=== PATIENT | female | born 1960 ===

== ENCOUNTER → 2021-02-15 10:20 | Outpatient (BNVA) | payer OTHER, SELFPAY | PROVIDERS: PCP Internal Medicine; Visit Provider Nurse Practitioner Family | DX: G43.709 Chronic migraine without aura, not intractable, without status migrainosus (principal); G56.40 Causalgia of unspecified upper limb; R25.1 Tremor, unspecified | CPT/HCPCS: 99212 ==

== ENCOUNTER 2021-04-21 14:13 | Outpatient (REF) | payer OTHER, SELFPAY ==
[2021-04-21 16:10] LABS: Estimated Glomerular Filt Rate > 60
[2021-04-21 16:17] LABS: B Type Natriuretic Peptide 37 pg/mL (<100)
[2021-04-21 16:32] LABS: TSH reflex Free T4 0.52 uIU/mL (0.32-4.0)
[2021-04-21 16:46] LABS: Folate 8.2 ng/mL (> or = 4.0); Vitamin B12 333 pg/mL (200-900)
[2021-04-22 19:31] LABS: Transglutaminase Ab IgG <1.0 U/mL; Transglutaminase IgA <1.0 U/mL
[2021-04-26 20:47] LABS: Vitamin D 25-OH, D2 <4 ng/mL; Vitamin D 25-OH, D3 30 ng/mL; Vitamin D 25-OH, Total 30 ng/mL (30-100)
== END 2021-04-21 14:14 | disposition home or self-care (01) ==
LOC: HO.LAB 14:13
PROVIDERS: PCP Internal Medicine; Visit Provider Nurse Practitioner Family
DX: R10.11 Right upper quadrant pain (principal); R19.7 Diarrhea, unspecified; R14.0 Abdominal distension (gaseous); E55.9 Vitamin D deficiency, unspecified; R10.9 Unspecified abdominal pain; K59.03 Drug induced constipation; K58.1 Irritable bowel syndrome with constipation
CPT/HCPCS: 36415; 82306; 82565; 82607; 82746; 83880; 84443; 86364; 99202

== ENCOUNTER → 2021-04-26 10:42 | Outpatient (BNVA) | payer OTHER, SELFPAY | PROVIDERS: PCP Internal Medicine; Visit Provider Nurse Practitioner Family | DX: G43.709 Chronic migraine without aura, not intractable, without status migrainosus (principal); G47.9 Sleep disorder, unspecified; G47.50 Parasomnia, unspecified; R25.1 Tremor, unspecified; G56.40 Causalgia of unspecified upper limb | CPT/HCPCS: 99212 ==

== ENCOUNTER → 2021-06-06 21:12 | Outpatient (REF) | payer OTHER, SELFPAY | LOC: HO.SL 21:12 | PROVIDERS: PCP Internal Medicine; Visit Provider Nurse Practitioner Family | DX: G47.33 Obstructive sleep apnea (adult) (pediatric) (principal) | CPT/HCPCS: 95810 ==

== ENCOUNTER → 2021-07-01 11:27 | Outpatient (BNVA) | payer OTHER, SELFPAY | PROVIDERS: PCP Internal Medicine; Visit Provider Nurse Practitioner Family | DX: G56.40 Causalgia of unspecified upper limb (principal); R25.1 Tremor, unspecified; G43.709 Chronic migraine without aura, not intractable, without status migrainosus; G47.9 Sleep disorder, unspecified; G47.50 Parasomnia, unspecified; Z79.899 Other long term (current) drug therapy | CPT/HCPCS: 99212 ==

== ENCOUNTER 2021-08-13 15:38 | Outpatient (REF) | payer OTHER, SELFPAY ==
[2021-08-14 11:35] LABS: H Pylori Breath Test Negative (Negative)
== END 2021-08-13 15:39 | disposition home or self-care (01) ==
LOC: HO.LNP 15:38
PROVIDERS: Visit Provider Nurse Practitioner Family
DX: A04.8 Other specified bacterial intestinal infections (principal)
CPT/HCPCS: 83013

== ENCOUNTER 2021-10-12 12:33 | Outpatient (REF) | payer OTHER, SELFPAY ==
[2021-10-12 13:58] LABS: Alanine Aminotransferase 27 U/L (0-31); Albumin Level 4.2 g/dL (3.5-5.0); Alkaline Phosphatase 116 U/L (39-117); Amylase 43 U/L (28-100); Aspartate Amino Transferase 96 U/L (5-31); Bilirubin Direct 0.2 mg/dL (0.0-0.5); Bilirubin Total 0.4 mg/dL (0.0-1.0); Lipase 21 U/L (8-78); Total Protein 7.7 g/dL (6.5-8.0)
== END 2021-10-12 12:34 | disposition home or self-care (01) ==
LOC: HO.LAB 12:33
PROVIDERS: PCP Internal Medicine; Visit Provider Nurse Practitioner Family
DX: K21.9 Gastro-esophageal reflux disease without esophagitis (principal); R14.0 Abdominal distension (gaseous); R10.12 Left upper quadrant pain; R13.10 Dysphagia, unspecified
CPT/HCPCS: 36415; 80076; 82150; 83690; 99212

== ENCOUNTER → 2021-11-05 08:20 | Outpatient (BNVA) | payer OTHER, SELFPAY | PROVIDERS: PCP Internal Medicine; Visit Provider Nurse Practitioner Family | DX: G43.709 Chronic migraine without aura, not intractable, without status migrainosus (principal); G89.29 Other chronic pain; M54.9 Dorsalgia, unspecified; M54.2 Cervicalgia; G56.40 Causalgia of unspecified upper limb; R25.1 Tremor, unspecified; Z79.899 Other long term (current) drug therapy | CPT/HCPCS: 99212 ==

== ENCOUNTER 2021-11-12 12:21 | Outpatient (REF) | payer OTHER, SELFPAY ==
--- NOTE | ~2021-11-12 | US_ITS ---
EXAMINATION: US ABDOMEN COMPLETE CLINICAL INFORMATION: Unspecified abdominal pain. COMPARISON: None. TECHNIQUE: Real-time imaging of the abdominal viscera. FINDINGS: PANCREAS: The pancreas is homogeneous in echotexture. It appears unremarkable.The pancreatic duct measures 0.3 cm and is slightly prominent. ABDOMINAL AORTA: The proximal, mid, and distal segments are normal in caliber. INFERIOR VENA CAVA: Visualized portions are normal. LIVER: The liver is enlarged measuring 20.3 cm in length with normal hepatic contour. There is diffuse increased liver echogenicity with sparing adjacent to gallbladder. No focal hepatic lesion. There is no intrahepatic biliary duct dilatation seen. GALLBLADDER: Normal. The gallbladder is physiologically distended without evidence of stones, sludge, polyps, wall thickening or pericholecystic fluid. COMMON BILE DUCT: Normal in caliber measuring 0.4 cm in diameter. RIGHT KIDNEY: Normal. No hydronephrosis. No renal calculi or focal parenchymal lesions. The kidney measures 11.1 cm in maximum dimension. LEFT KIDNEY: Normal. No hydronephrosis. No renal calculi or focal parenchymal lesions. The kidney measures 11.7 cm in maximum dimension. SPLEEN: Borderline size spleen. The spleen measures 7.3 cm in maximum dimension. FREE FLUID: None. US/US abdomen complete IMPRESSION: Borderline size spleen with no focal lesion. Hepatic steatosis with focal sparing adjacent to gallbladder. Liver is enlarged.
== END 2021-11-12 12:22 | disposition home or self-care (01) ==
LOC: HO.US 12:21
PROVIDERS: Visit Provider Nurse Practitioner Family
DX: R10.9 Unspecified abdominal pain (principal)
CPT/HCPCS: 76700

== ENCOUNTER 2021-12-08 08:43 | Outpatient (REF) | payer OTHER, SELFPAY ==
--- NOTE | ~2021-12-08 | FL_ITS ---
EXAMINATION: FL BARIUM SWALLOW CLINICAL INFORMATION: R13.10 - Dysphagia, unspecified COMPARISON: None TECHNIQUE: Barium swallow examination is performed using fluoroscopic evaluation in addition to multiple fluoroscopic spot views, including cine images during swallowing. The patient is imaged both upright and prone and using both thick and thin sulfate along with effervescent granules. Barium pill also given. Exam tailored to patient capabilities. Fluoroscopy time: 2.0 minutes DAP: 12.95 Gycm2 Images: 59 FINDINGS: Swallowing function is normal and there is no aspiration or nasopharyngeal penetration. The cervical esophagus has no web or diverticulum or stricture. The cervical thoracic junction appears normal. The thoracic esophagus shows some decreased primary peristaltic activity but no tertiary contractions and no with no obstruction, stricture, or ulceration. Barium pill readily passed from mouth to stomach with patient upright. There is no hiatal hernia demonstrated. There is some mild gastroesophageal reflux seen to the mid thoracic esophagus. A cursory view of the upper abdomen shows no gastric outlet obstruction. FL/FL barium swallow IMPRESSION: -Decreased primary peristalsis. No tertiary contractions. No obstruction or stricture. -Mild gastroesophageal reflux to mid thoracic esophagus. No hiatal hernia. -Swallowing function appears normal. -No gastric outlet obstruction.
== END 2021-12-08 08:44 | disposition home or self-care (01) ==
LOC: HO.XRAY 08:43
PROVIDERS: Visit Provider Nurse Practitioner Family
DX: R13.10 Dysphagia, unspecified (principal)
CPT/HCPCS: 74220

== ENCOUNTER → 2022-02-10 09:25 | Outpatient (BNVA) | payer OTHER, SELFPAY | PROVIDERS: PCP Internal Medicine; Visit Provider Nurse Practitioner Family | DX: R25.1 Tremor, unspecified (principal); G57.73 Causalgia of bilateral lower limbs; G56.43 Causalgia of bilateral upper limbs; M54.2 Cervicalgia; G89.29 Other chronic pain; M54.9 Dorsalgia, unspecified; G47.50 Parasomnia, unspecified; G43.709 Chronic migraine without aura, not intractable, without status migrainosus; G47.9 Sleep disorder, unspecified; Z79.899 Other long term (current) drug therapy | CPT/HCPCS: 99212 ==

== ENCOUNTER → 2022-02-18 08:15 | Outpatient (BNVA) | payer OTHER, SELFPAY | PROVIDERS: PCP Internal Medicine; Visit Provider Nurse Practitioner Family | DX: K59.03 Drug induced constipation (principal); K21.9 Gastro-esophageal reflux disease without esophagitis; K58.2 Mixed irritable bowel syndrome | CPT/HCPCS: 99212 ==

== ENCOUNTER → 2022-05-19 08:10 | Outpatient (BNVA) | payer OTHER, SELFPAY | PROVIDERS: PCP Internal Medicine; Visit Provider Nurse Practitioner Family | DX: G56.40 Causalgia of unspecified upper limb (principal); G43.709 Chronic migraine without aura, not intractable, without status migrainosus; M54.2 Cervicalgia; R25.1 Tremor, unspecified | CPT/HCPCS: 99212 ==

== ENCOUNTER 2022-08-16 10:54 | Outpatient (AMB) | payer OTHER, SELFPAY ==
[2022-08-16 10:59] VITALS: BP 170/72; PULSE 92; O2SAT 97; BMI 32.9
--- NOTE | 2022-08-16 10:59 | A.OFFVIS_ITS ---
Intake Vital Signs 08/16/22 10:59 Height 5 ft 6 in Weight 204 lb 2 oz BMI 32.9 BP 170/72 H Position Sitting Pulse 92 Pulse Source Pulse Oximeter Pulse Oximetry (%) 97 Oxygen Delivery Method Room Air Intake Visit Reasons: WC 3m follow up - Confirmed Intake Note: Pt presents as a 3 month f/u. Flight Radio Officer Required: No Allergies bee venom protein (honey bee) Allergy (Severe, Verified 08/16/22 11:10) Anaphylaxis Penicillins Allergy (Severe, Verified 08/16/22 11:10) Unknown Medication List - Last Reconciled 08/16/22 by TAYE Ashton albuterol sulfate 90 mcg/actuation (Ventolin HFA) 0 mcg inhalation alprazolam 2 mg PO TID amitriptyline 75 mg (3 x 25 mg) PO BEDTIME 30 days baclofen 20 mg (2 x 10 mg) PO BEDTIME 30 days carbidopa-levodopa 25-100 mg 1 tab PO 3-4 x's per day; 30 days cetirizine 10 mg PO DAILY [Door alarm apply to bedroom and exit door at night] epinephrine 0.3 mg IM Q4H PRN etodolac 500 mg PO BID gabapentin 600 mg PO BID-TID 90 days [Laser alarm Laser alarm applied to head of bed, turn on nightly; ] lisinopril 40 mg PO DAILY naloxegol (Movantik) 12.5 mg PO QAM omeprazole 20 mg PO DAILY sennosides (Natural Senna Laxative) 17.2 mg (2 x 8.6 mg) PO BEDTIME simethicone (Gas Relief (simethicone)) 180 mg PO BID PRN trazodone 100 mg PO BEDTIME verapamil ER 100 mg PO BEDTIME 90 days vitamin B complex (Vitamins B Complex capsule) 1 cap PO DAILY 90 days HPI HPI Comments History of Present Illness Details 62-yr-old female presents for f/u visit. Pt reports she had a recent hospital eval- her [facility]ILD CARE CENTRE MANAGER found her laying on the floor- pt states she is not sure if she had full LOC. Review of [facility] and f/u PCP notes show that pt had labile HTN but there was also suspicion for seizure etiology. Pt was advised to increase Lisinopril from 20mg qd to 40mg qd. Discussion was had about starting low-dose ASA, but this was deferred to out-pt f/u. Pt was advised to have out-pt EEG, however review of PCP note shows that pt declined- pt again declines this today, as she feels the episode was r/t stress as she had to see her for an extended period the day before. Head/neck CTA: IMPRESSION: 1. No proximal occlusion or high grade stenosis in the major arteries of the head and neck. 2. 2.8 cm right thyroid nodule. This was better characterized on prior ultrasound 06/02/2017, and has undergone biopsy with benign result 09/15/2017. Head CT: IMPRESSION: No evidence of acute intracranial abnormality. Today pt's BP is elevated at 170/72 w/ HR 92 (on 2nd reading). Pt reports she has been compliant w/ the increased Lisinopril and Verapamil. She again attributes this to stress r/t her upcoming divorce and housing situation. She does not check her BP at home- does not have a cuff. She notes taht she was recently bit by multiple insects while working in a garden. Notes scratches tend to leave sy for a while. Her feet have been swollen- less so now. She also reports that she thinks she needs to be on antibiotics longer- was recently tx'd for UTI. She is also requesting refill of alprazolam- her PCP has been managing this. She states she needs a new cane- hers is warped and she needs new cane tips. She also is requesting new lumbar support pillow. [facility] Medical History Anxiety disorder Asthma Chronic back pain Chronic migraine without aura Complex regional pain syndrome type II Hyperlipidemia Migraine Neuropathy Parasomnia, unspecified PTSD (post-traumatic stress disorder) Sleep disorder, unspecified Surgical History H/O carpal tunnel repair H/O: hysterectomy Hx of colonoscopy Family History Mother Cancer Sister Hypertension Social History (Updated 08/16/22 @ 11:14 by Meli Dias CMA) Household Members: None Alcohol intake: current Alcohol intake frequency: a few times a week Patient Tobacco Use Status: Current everyday Tobacco user Cigarettes Per Day: 5 Review of Systems Const All systems reviewed & are unremarkable except as noted in HPI and below Physical Exam Vital Signs: Last Vital Signs Pulse 92 08/16/22 10:59 BP 170/72 H 08/16/22 10:59 Pulse Ox 97 08/16/22 10:59 Oxygen Delivery Method Room Air 08/16/22 10:59 BMI result Body Mass Index 32.9 Const General: cooperative and no acute distress Orientation/consciousness: patient oriented x3 Resp Effort & Inspection: normal respiratory effort and able to speak in complete sentences Auscultation: clear to auscultation bilaterally Cardio Rate: regular rate Rhythm: regular rhythm Neuro Other: Soft voice Mild decreased expression and blink. Right upper extremity rest and postural tremor Slow to stand, short steps, antalgic gait w/ cane. General: patient oriented x3 and CN's II-XI intact bilaterally Cognition (Neuro): normal cognition General: patient oriented x3 and CN's II-XI intact bilaterally Cognition (Neuro): normal cognition Psych Appearance: grossly normal Mental Status: mental status grossly normal Affect: normal affect Assessment & Plan Assessment & Plan (1) HTN (hypertension): Code(s): I10 - Essential (primary) hypertension (2) Complex regional pain syndrome type II: Comment: s/p injury at work on 12/01/15. Progressed to include BUE & BLE. Code(s): G56.40 - Causalgia of unspecified upper limb (3) Tremor: Comment: a/w decreased facial expression/blink, rest tremor, altered gait, drooling, constipation, REM sleep behaviors, falls. NALLELY scan- negative. Likely r/t CRPS type II. Code(s): R25.1 - Tremor, unspecified (4) Gait difficulty: Code(s): R26.9 - Unspecified abnormalities of gait and mobility Plan For recent epsiode of ? syncope and current elevated BP: Pt declined f/u EEG. Continue Lisinopril 40mg qd- take extra 1/2 dose when pt returns home. Increase Verapamil SR from 100mg to 120mg qhs. Consider ASA- would like to have a better understanding of pt's ETOH intake. Will order home BP cuff- order given to pt Reviewed red flag s/s to seek urgent medical care. For sleep disorder- Continue safety measures. Can continue Xanax per out-side provider- we will defer to PCP for refills. For migraine- Continue Amitriptyline 50 mg qhs. Verapamil SR 120mg qhs as above May use etodolac prn. Future considerations- CGRP MAB (Emgality or Ajovy d/t no constipation ADR). For CRPS/tremor, back pain, and gait diffiulty- Order written for new cane and cane tips- order given to pt. Will defer lumbar support to PCP. Continue Gabapentin 600mg tid. Continue Sinemet 25-100mg 1 tab tid - qid- for tremor, tone, and bradykinesia. Continue [facility] [employer] [facility] MANAGER services. f/u w/ dermatology. f/u in 3-4 months or sooner prn. Medications: New blood pressure monitor As directed 1 ea 0RF I10 - Essential (primary) hypertension verapamil ER 120 mg PO QPM 30 days 30 tabs 3RF [cane tips] As directed 1 ea 0RF G56.40 - Causalgia of unspecified upper limb, G89.29 - Other chronic pain, M54.9 - Dorsalgia, unspecified, R26.9 - Unspecified abnormalities of gait and mobility [cane tips] As directed 1 ea 0RF G56.40 - Causalgia of unspecified upper limb, G89.29 - Other chronic pain, M54.9 - Dorsalgia, unspecified, R26.9 - Unspecified abnormalities of gait and mobility [cane tips] As directed 1 ea 0RF G56.40 - Causalgia of unspecified upper limb, G89.29 - Other chronic pain, M54.9 - Dorsalgia, unspecified, R26.9 - Unspecified abnormalities of gait and mobility cane As directed 1 ea 0RF G89.29 - Other chronic pain, M54.9 - Dorsalgia, unspecified, R26.9 - Unspecified abnormalities of gait and mobility Refilled amitriptyline 75 mg (3 x 25 mg) PO BEDTIME 30 days 90 tabs 6RF Discontinued verapamil ER Discontinued Reason: Doctor's Order 100 mg PO BEDTIME 90 days 90 caps 1RF Coding Level of Care Code Est Pt Level 4 (69936) Diagnoses HTN (hypertension) I10 Complex regional pain syndrome type II G56.40 Tremor R25.1 Gait difficulty R26.9
== END 2022-08-16 12:28 | disposition home or self-care (01) ==
LOC: HO.HSMS 10:54
PROVIDERS: PCP Internal Medicine; Visit Provider Nurse Practitioner Family
DX: I10 Essential (primary) hypertension (principal); G56.40 Causalgia of unspecified upper limb; R25.1 Tremor, unspecified; R26.9 Unspecified abnormalities of gait and mobility
CPT/HCPCS: 99214

== ENCOUNTER → 2022-08-16 10:54 | Outpatient (BNVA) | payer OTHER, SELFPAY | PROVIDERS: PCP Internal Medicine; Visit Provider Nurse Practitioner Family | DX: G56.40 Causalgia of unspecified upper limb (principal); R25.1 Tremor, unspecified; R26.9 Unspecified abnormalities of gait and mobility; I10 Essential (primary) hypertension; Z79.899 Other long term (current) drug therapy | CPT/HCPCS: 99212 ==

== ENCOUNTER 2022-08-19 08:35 | Outpatient (AMB) | payer OTHER, SELFPAY ==
[2022-08-19 08:51] VITALS: BP 138/86; PULSE 92; BMI 32.9
--- NOTE | 2022-08-19 08:51 | MHC.OFFVIS ---
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 Qualified Code(s):?K59.03 - Drug induced constipation ?Plan: Continue current regimen.? Patient was encouraged to increase fluids and activity to promote better bowel motility. (2) GERD (gastroesophageal reflux disease): ?Code(s): K21.9 - Gastro-esophageal reflux disease without esophagitis ?Qualifiers: ?Esophagitis presence:?esophagitis presence not specified? Qualified Code(s):?K21.9 - Gastro-esophageal reflux disease without esophagitis ?Plan: Continue current regimen with omeprazole.? Patient also needs to move her bowels better so her symptoms can improve.? Discussed with patient avoiding dietary triggers and late night snacking.? Staying upright for minimal 3 hours after meals discussed with patient. (3) IBS (irritable bowel syndrome): ?Code(s): K58.9 - Irritable bowel syndrome without diarrhea ?Qualifiers: ?Irritable bowel syndrome type:?with both diarrhea and constipation? Qualified Code(s):?K58.2 - Mixed irritable bowel syndrome ?Plan: Postprandial loose stools and constipation.? Patient also reports of abdominal bloating specially after meals.? Discussed with her the importance of getting her stool sample so we can check for pancreatic insufficiency.? However discussed with her the diet choices.? Patient does drink milk.? Discussed with her avoiding lactose.? Low FODMAP diet discussed with her.? List of food recommended as well as list of food to avoid given to patient.? I will see her in 6 months, sooner on as needed basis.? Patient is agreeable to this plan and verbalizes understanding of instructions.? She was given the opportunity to ask questions all questions answered.? TODAY'S VISIT Patient is here today for follow-up. Patient continues to be constipated, occasional dyspepsia without dysphagia or odynophagia. Reports epigastric and left upper quadrant discomfort. Patient is trying to change her diet. Patient denies nausea or vomiting. Denies any melena, hematochezia, unintentional weight loss or ribbon like stools. Patient denies any other GI concerning symptoms PFSH Medical History Anxiety disorder Asthma Chronic back pain Chronic migraine without aura Complex regional pain syndrome type II Hyperlipidemia Migraine Neuropathy Parasomnia, unspecified PTSD (post-traumatic stress disorder) Sleep disorder, unspecified Surgical History H/O carpal tunnel repair H/O: hysterectomy Hx of colonoscopy Family History Mother Cancer Sister Hypertension Social History Household Members: None Alcohol intake: current Alcohol intake frequency: a few times a week Patient Tobacco Use Status: Current everyday Tobacco user Cigarettes Per Day: 5 Review of Systems Const Denies weight gain and Denies weight loss ENT Reports no additional complaints, Denies dysphagia and Denies odynophagia Card Reports no additional complaints Resp Reports no additional complaints GI Denies abdominal pain, Denies belching, Denies melena, Denies bloating, Reports constipation, Denies dysphagia, Denies excessive flatus, Denies dyspepsia, Reports heartburn, Denies diarrhea, Denies loose stools, Denies nausea, Denies odynophagia and Denies vomiting Reports no additional complaints Musc Reports no additional complaints Neuro Reports no additional complaints Psych Reports no additional complaints Endo Reports no additional complaints Physical Exam Vital Signs: Last Vital Signs Pulse 92 08/19/22 08:51 BP 138/86 08/19/22 08:51 BMI result Body Mass Index 32.9 Const General: healthy appearing, no acute distress and well developed Nutritional Appearance: obese Orientation/consciousness: patient oriented x3 HEENT Head: Yes normal to inspection, Yes normocephalic and Yes atraumatic Face and sinus: Yes normal facial exam Mouth: Normal oral and palatal mucosa present Throat: Yes posterior oropharynx normal, Yes tonsils normal and Yes uvula midline Eyes General: appearance normal, both eyes and all related structures Neck Neck: Yes normal visual inspection, Yes full ROM and Yes trachea midline Thyroid: Thyroid normal Resp Effort & Inspection: normal respiratory effort, able to speak in complete sentences, no tracheal deviation and symmetric chest movement Auscultation: clear to auscultation bilaterally Cardio Rate: regular rate Heart sounds: S1 normal heart sound present and S2 normal heart sound present GI Inspection: Yes normal to inspection, No distended and Yes obesity Palpation (GI): Soft to palpation, not firm, nontender and No hepatosplenomegaly present Auscultation: normal bowel sounds General: Yes no CVA tenderness Back/Spine/Pelvis Back: no CVA tenderness Skin General skin exam: elasticity normal, turgor normal and dry skin Neuro General: patient oriented x3 Psych Appearance: grossly normal Mental Status: mental status grossly normal Speech and movement: Normal speech and movement present Affect: normal affect Assessment & Plan Assessment & Plan (1) Constipation: Code(s): K59.00 - Constipation, unspecified Qualifiers: Constipation type: drug induced constipation Qualified Code(s): K59.03 - Drug induced constipation Plan: Will start patient on Trulance. Patient can take Colace at bedtime to help her eliminate her bowels better. Patient was also encouraged to increase fluid intake and activity to promote better bowel motility (2) GERD (gastroesophageal reflux disease): Code(s): K21.9 - Gastro-esophageal reflux disease without esophagitis Qualifiers: Esophagitis presence: esophagitis presence not specified Qualified Code(s): K21.9 - Gastro-esophageal reflux disease without esophagitis Plan: Continue omeprazole. Continue avoiding dietary triggers and late night snacking. Staying upright for minimum 3 hours after meals discussed with patient. Patient will try smaller meals and more often. (3) IBS (irritable bowel syndrome): Code(s): K58.9 - Irritable bowel syndrome without diarrhea Qualifiers: Irritable bowel syndrome type: with constipation Qualified Code(s): K58.1 - Irritable bowel syndrome with constipation Plan: Continue low FODMAP diet. I will see patient in 6 months, sooner on as needed basis. Patient is agreeable to this plan and verbalizes understanding of instructions. She was given the opportunity to ask questions and all questions answered. To Thank you for allowing me to participate in her care Medications: New plecanatide (Trulance) 3 mg PO DAILY 30 tabs 3RF K59.09 - Other constipation docusate sodium 100 mg PO BEDTIME 90 caps 3RF K59.00 - Constipation, unspecified Refilled omeprazole 20 mg PO DAILY 90 caps 2RF K21.9 - Gastro-esophageal reflux disease without esophagitis Discontinued sennosides Discontinued Reason: Doctor's Order 17.2 mg (2 x 8.6 mg) PO BEDTIME 180 tabs 3RF constipation K59.00 - Constipation, unspecified Coding Level of Care Code Est Pt Level 3 (90236) Diagnoses Constipation K59.03 Constipation type: drug induced constipation GERD (gastroesophageal reflux disease) K21.9 Esophagitis presence: esophagitis presence not specified IBS (irritable bowel syndrome) K58.1 Irritable bowel syndrome type: with constipation Time Spent (min) 25 Comment 15 minutes spent with patient and additional 10 minutes spent reviewing her records
== END 2022-08-19 09:45 | disposition home or self-care (01) ==
PROVIDERS: Visit Provider Nurse Practitioner Family
DX: K59.03 Drug induced constipation (principal); K21.9 Gastro-esophageal reflux disease without esophagitis; K58.1 Irritable bowel syndrome with constipation
CPT/HCPCS: 99213

== ENCOUNTER → 2022-08-19 08:35 | Outpatient (BNVA) | payer OTHER, SELFPAY | PROVIDERS: Visit Provider Nurse Practitioner Family | DX: K59.03 Drug induced constipation (principal); K21.9 Gastro-esophageal reflux disease without esophagitis; K58.1 Irritable bowel syndrome with constipation | CPT/HCPCS: 99212 ==

== ENCOUNTER 2022-12-27 10:59 | Outpatient (AMB) | payer OTHER, SELFPAY ==
[2022-12-27 11:01] VITALS: BP 138/70; PULSE 75; O2SAT 96; BMI 33.1
--- NOTE | 2022-12-27 11:01 | MHC.OFFVIS ---
Intake Vital Signs 12/27/22 11:01 Height 5 ft 6 in Weight 205 lb 2 oz BMI 33.1 BP 138/70 Blood Pressure Location Lt brachial Position Sitting Pulse 75 Pulse Source Pulse Oximeter Pulse Oximetry (%) 96 Oxygen Delivery Method Room Air Intake Visit Reasons: WC 4m f/u - Conf t/CW Intake Note: Pt presents to the office today for a 4 month follow up. Pt states she is constantly in pain and is worse than before. Pt states she is unable to stand even for a short period of time without needing support. Pt states she did have swelling in her feet but they are not swollen today. Pt states it is hard for her to do anything due to her not being able to hold her body up. Pt states even taking a shower is exhausting and she states her pain is at the point where it is unbareable. Allergies bee venom protein (honey bee) Allergy (Severe, Verified 12/27/22 11:01) Anaphylaxis Penicillins Allergy (Severe, Verified 12/27/22 11:01) Unknown Medication List - Last Reconciled 12/27/22 by TAYE Ashton albuterol sulfate 90 mcg/actuation (Ventolin HFA) 0 mcg inhalation alprazolam 2 mg PO TID amitriptyline 75 mg (3 x 25 mg) PO BEDTIME 30 days baclofen 20 mg (2 x 10 mg) PO BEDTIME 30 days blood pressure monitor As directed cane As directed [cane tips As directed] carbidopa-levodopa 25-100 mg 1 tab PO 3-4 x's per day; 30 days cetirizine 10 mg PO DAILY docusate sodium 100 mg PO BEDTIME [Door alarm apply to bedroom and exit door at night] epinephrine 0.3 mg IM Q4H PRN etodolac 500 mg PO BID gabapentin 600 mg PO BID-TID 90 days [Laser alarm Laser alarm applied to head of bed, turn on nightly; ] lisinopril 40 mg PO DAILY naloxegol (Movantik) 12.5 mg PO QAM omeprazole 20 mg PO DAILY simethicone (Gas Relief (simethicone)) 180 mg PO BID PRN trazodone 100 mg PO BEDTIME verapamil ER 120 mg PO QPM 30 days vitamin B complex (Vitamins B Complex capsule) 1 cap PO DAILY 90 days HPI HPI Comments History of Present Illness Details 62-yr-old female presents for f/u visit. Pt reports increased pain level. Especially across her back and spine- mid-back and neck. Still having shooting pain down her legs. When the pain is more severe- it feels as if her lower body cannot support her upper body. She cannot shop at [employer] anymore- cannot handle it , ends up bending up forward to hold herself up. She cannot describe the pain. This pain is constant, but severe 3 days per week. She is having increased sensitivity and pins and needles in her fingertips. She is prone to drop things, especially while cooking. She requests a note to switch her gas stove to an electric stove. She has noticed skin color changes and swelling in her extremities. Pt sttaes she has had vascular studies- normal, which I do not have reports for today. Tremor varies- sometimes better/worse. Writing is more difficult with sustained writing. One recent fall- tripped over an jorge edge while walking. She has seen GI- was taking Trulance but this caused watery stool so stopped it. Since she has had constipation- requests refill of colace. . She continues to have personal stress- her divorce was completed but continues to have difficulties with finalizing the details. [facility] Medical History Migraine PTSD (post-traumatic stress disorder) Neuropathy Hyperlipidemia Chronic back pain Asthma Anxiety disorder Parasomnia, unspecified Sleep disorder, unspecified Chronic migraine without aura Complex regional pain syndrome type II Surgical History Hx of colonoscopy H/O carpal tunnel repair H/O: hysterectomy Family History Mother Cancer Sister Hypertension Household Members: None Alcohol intake: current Alcohol intake frequency: a few times a week Patient Tobacco Use Status: Current everyday Tobacco user Cigarettes Per Day: 5 Review of Systems Const All systems reviewed & are unremarkable except as noted in HPI and below Physical Exam Vital Signs: Last Vital Signs Pulse 75 12/27/22 11:01 BP 138/70 12/27/22 11:01 Pulse Ox 96 12/27/22 11:01 Oxygen Delivery Method Room Air 12/27/22 11:01 BMI result Body Mass Index 33.1 Const General: cooperative and no acute distress HEENT Head: Yes normocephalic Resp Effort & Inspection: normal respiratory effort and able to speak in complete sentences Neuro Other: A&O x's 3 Soft voice Mild decreased expression and blink. Right upper extremity rest and postural tremor Slow to stand, short steps, antalgic gait w/ cane. Extrem Other: No distal LE swelling. Psych Appearance: grossly normal Mental Status: mental status grossly normal Assessment & Plan Assessment & Plan (1) Complex regional pain syndrome type II: Comment: s/p injury at work on 12/01/15. Progressed to include BUE & BLE. Code(s): G56.40 - Causalgia of unspecified upper limb (2) Tremor: Comment: a/w decreased facial expression/blink, rest tremor, altered gait, drooling, constipation, REM sleep behaviors, falls. NALLELY scan- negative. Likely r/t CRPS type II. Code(s): R25.1 - Tremor, unspecified (3) Constipation: Code(s): K59.00 - Constipation, unspecified Qualifiers: Constipation type: drug induced constipation Qualified Code(s): K59.03 - Drug induced constipation (4) Sleep disorder, unspecified: Comment: REM sleep behavior, fatigue, snoring, excessive daytime sleepiness, ESS 12. Code(s): G47.9 - Sleep disorder, unspecified (5) Chronic back pain: Code(s): M54.9 - Dorsalgia, unspecified; G89.29 - Other chronic pain (6) Cervicalgia: Code(s): M54.2 - Cervicalgia Plan For sleep disorder- Continue safety measures. Can continue Xanax per out-side provider- we will defer to PCP for refills. ? For migraine- Continue Amitriptyline 75 mg qhs. Continue Verapamil SR 120mg qhs May use etodolac prn. Future considerations- CGRP MAB (Emgality or Ajovy d/t no constipation ADR risk). ? For CRPS/tremor, back pain, and gait difficulty- Considered increasing Amitriptyline however pt does not want to increase this. Hold Gabapentin 600mg tid. Instead trial Pregabalin 150mg tid. Will give short supply of Tramadol 50mg prn. Will refer pt to Pain Management. Offered PT- pt not interested at this time. Continue Sinemet 25-100mg 1 tab tid - qid- for tremor, tone, and bradykinesia. Continue [facility] services. For BLE discolorations- f/u dermatology. ? f/u in 4 months or sooner prn. Orders: Referrals Pain Management Referral G56.40 - Causalgia of unspecified upper limb, G89.29 - Other chronic pain, M54.2 - Cervicalgia, M54.9 - Dorsalgia, unspecified, R26.9 - Unspecified abnormalities of gait and mobility Medications: New pregabalin 150 mg PO TID 90 caps 1RF 30 days tramadol 50 mg PO Q6-8H PRN 28 tabs 0RF pain 7 days Refilled simethicone (Gas Relief (simethicone)) 180 mg PO BID PRN 180 caps 4RF abdominal distention docusate sodium 100 mg PO BEDTIME 90 caps 3RF K59.00 - Constipation, unspecified Discontinued gabapentin Discontinued Reason: Doctor's Order 600 mg PO BID-TID 90 days 270 tabs 1RF Coding Level of Care Code Est Pt Level 4 (07558) Diagnoses Complex regional pain syndrome type II G56.40 Tremor R25.1 Drug-induced constipation K59.03 Constipation type: drug induced constipation Sleep disorder, unspecified G47.9 Chronic back pain M54.9; G89.29 Cervicalgia M54.2
== END 2022-12-27 12:22 | disposition home or self-care (01) ==
PROVIDERS: PCP Internal Medicine; Visit Provider Nurse Practitioner Family
DX: G56.43 Causalgia of bilateral upper limbs (principal); R25.1 Tremor, unspecified; K59.03 Drug induced constipation; G47.9 Sleep disorder, unspecified; M54.9 Dorsalgia, unspecified; G89.29 Other chronic pain; M54.2 Cervicalgia
CPT/HCPCS: 99214

== ENCOUNTER → 2022-12-27 10:59 | Outpatient (BNVA) | payer OTHER, SELFPAY | PROVIDERS: PCP Internal Medicine; Visit Provider Nurse Practitioner Family | DX: G56.40 Causalgia of unspecified upper limb (principal); K59.03 Drug induced constipation; R25.1 Tremor, unspecified; G47.9 Sleep disorder, unspecified; M54.9 Dorsalgia, unspecified; M54.2 Cervicalgia; G89.29 Other chronic pain | CPT/HCPCS: 99212 ==

== ENCOUNTER → 2023-01-11 10:42 | Outpatient (BNVA) | payer OTHER, SELFPAY | PROVIDERS: PCP Internal Medicine; Referring Provider Nurse Practitioner Family; Visit Provider Registered Nurse Emergency ==

== ENCOUNTER 2023-03-07 13:37 | Outpatient (REF) | payer OTHER, SELFPAY ==
[2023-03-07 15:48] LABS: Alanine Aminotransferase 26 U/L (0-31); Alkaline Phosphatase 124 U/L (39-117); Aspartate Amino Transferase 96 U/L (5-31); Bilirubin Direct 0.1 mg/dL (0.0-0.5); Bilirubin Total 0.3 mg/dL (0.0-1.0); Blood Urea Nitrogen 12 mg/dL (9-16); Estimated Glomerular Filt Rate > 60; Lipase 28 U/L (8-78); Total Protein 7.4 g/dL (6.5-8.0)
== END 2023-03-07 13:38 | disposition home or self-care (01) ==
LOC: HO.LAB 13:37
PROVIDERS: PCP Internal Medicine; Visit Provider Nurse Practitioner Family
DX: K58.1 Irritable bowel syndrome with constipation (principal); K21.9 Gastro-esophageal reflux disease without esophagitis; K59.03 Drug induced constipation; R10.11 Right upper quadrant pain; R74.01 Elevation of levels of liver transaminase levels
CPT/HCPCS: 36415; 80076; 82565; 83690; 84520; 99212

== ENCOUNTER 2023-03-07 13:37 | Outpatient (AMB) | payer OTHER, SELFPAY ==
[2023-03-07 13:40] VITALS: BP 158/74; PULSE 91; BMI 33.1
--- NOTE | 2023-03-07 13:40 | A.OFFVIS_ITS ---
Intake Vital Signs 03/07/23 13:40 Height 5 ft 6 in Weight 205 lb BMI 33.1 BP 158/74 H Blood Pressure Location Lt brachial Position Sitting Pulse 91 Intake Visit Reasons: r/s from 02/20 Intake Note: Cecille presents in the office. CC: She states she has swollen stomach. Bowels are not functioning properly and she has been having high BP and pulse has been 106. She states that she is having issues with her eating because she only has one tooth. [employer]ater Required: No Allergies bee venom protein (honey bee) Allergy (Severe, Verified 03/07/23 13:50) Anaphylaxis Penicillins Allergy (Severe, Verified 03/07/23 13:50) Unknown HPI r/s from 02/20 HPI Details LAST VISIT: Constipation Will start patient on Trulance. Patient can take Colace at bedtime to help her eliminate her bowels better. Patient was also encouraged to increase fluid intake and activity to promote better bowel motility GERD (gastroesophageal reflux disease) Continue omeprazole. Continue avoiding dietary triggers and late night snacking. Staying upright for minimum 3 hours after meals discussed with patient. Patient will try smaller meals and more often. IBS (irritable bowel syndrome) Continue low FODMAP diet. I will see patient in 6 months, sooner on as needed basis. Patient is agreeable to this plan and verbalizes understanding of instructions. She was given the opportunity to ask questions and all questions answered. To ? Thank you for allowing me to participate in her care Plan Medications New plecanatide (Trulance) 3 mg PO DAILY 30 tabs 3RF K59.09 - Other constipation docusate sodium 100 mg PO BEDTIME 90 caps 3RF K59.00 - Constipation, unspecified Refilled omeprazole 20 mg PO DAILY 90 caps 2RF K21.9 - Gastro-esophageal reflux disease without esophagitis Discontinued sennosides Discontinued Reason: Doctor's Order 17.2 mg (2 x 8.6 mg) PO BEDTIME 180 tabs 3RF constipation K59.00 - Constipation, unspecified TODAY'S VISIT: Patient is here today for follow-up. Patient reports that she continues to have trouble with moving her bowels. Patient currently is taking stool softeners to help her bowel movements, however she is not having any success. Patient was given script for Trulance, however I am not sure why that was not filled, patient was able to get PA for the medication. Patient reports abdominal bloating all the time. Patient reports that she only eats 1 meal a day because she feels so bloated. Trouble chewing as she only has 1 to, however patient in the office has partials in. Patient has assistance 40 hours a week from [facility]. Patient is not following low FODMAP diet. Denies dyspepsia, dysphagia or odynophagia. Denies melena, hematochezia, unintentional weight loss or ribbon like stools. Patient reports that she drinks alcohol on the weekends only. However patient has liver enzymes AST elevated and ALT normal in 2021. We will repeat blood work again today. 10/12/21 13:00 AST 96 H ALT 27 PFSH Medical History Migraine PTSD (post-traumatic stress disorder) Neuropathy Hyperlipidemia Chronic back pain Asthma Anxiety disorder Parasomnia, unspecified Sleep disorder, unspecified Chronic migraine without aura Complex regional pain syndrome type II Surgical History Hx of colonoscopy H/O carpal tunnel repair H/O: hysterectomy Family History Mother Cancer Sister Hypertension Social History Household Members: None Alcohol intake: current Alcohol intake frequency: a few times a week Patient Tobacco Use Status: Current everyday Tobacco user Cigarettes Per Day: 5 Review of Systems Const Denies weight gain and Denies weight loss ENT Reports no additional complaints, Denies dysphagia and Denies odynophagia Card Reports no additional complaints Resp Reports no additional complaints GI Denies abdominal pain, Denies belching, Denies melena, Denies bloating, Denies change in bowel habits, Reports constipation, Denies dysphagia, Denies excessive flatus, Denies dyspepsia, Denies heartburn, Denies diarrhea, Denies loose stools, Reports nausea (once 2 weeks ago), Denies odynophagia and Denies vomiting Reports no additional complaints Musc Reports no additional complaints Neuro Reports no additional complaints Psych Reports no additional complaints Endo Reports no additional complaints Physical Exam Vital Signs: Last Vital Signs Pulse 91 03/07/23 13:40 BP 158/74 H 03/07/23 13:40 BMI result Body Mass Index 33.1 Const General: healthy appearing, no acute distress and well developed Nutritional Appearance: obese Orientation/consciousness: patient oriented x3 Resp Effort & Inspection: normal respiratory effort, able to speak in complete senten gabby, no tracheal deviation and symmetric chest movement Auscultation: clear to auscultation bilaterally Cardio Rate: regular rate GI Inspection: Yes normal to inspection, No distended and Yes obesity Palpation (GI): Soft to palpation, not firm, nontender and No hepatosplenomegaly present Auscultation: normal bowel sounds General: Yes no CVA tenderness Back/Spine/Pelvis Back: no CVA tenderness Skin General skin exam: elasticity normal, turgor normal and dry skin Neuro General: patient oriented x3 Psych Appearance: grossly normal Mental Status: mental status grossly normal Assessment & Plan Assessment & Plan (1) Constipation: Code(s): K59.00 - Constipation, unspecified Qualifiers: Constipation type: drug induced constipation Qualified Code(s): K59.03 - Drug induced constipation (2) GERD (gastroesophageal reflux disease): Code(s): K21.9 - Gastro-esophageal reflux disease without esophagitis Qualifiers: Esophagitis presence: esophagitis presence not specified Qualified Code(s): K21.9 - Gastro-esophageal reflux disease without esophagitis (3) IBS (irritable bowel syndrome): Code(s): K58.9 - Irritable bowel syndrome without diarrhea Qualifiers: Irritable bowel syndrome type: with constipation Qualified Code(s): K58.1 - Irritable bowel syndrome with constipation Plan Will order liver panel, lipase. Will send patient for CT scan with IV and oral contrast. Start Linzess 145 mcg daily. Patient will call in couple weeks if this not going to be effective. I will see her in 4-5 weeks to re-evaluate. Will try to get [facility] staff to follow-up on patient's diet. Low FODMAP diet discussed with patient. List of food recommended as well as list of food to avoid given to patient. Patient is agreeable to this plan and verbalizes understanding of instructions. She was given the opportunity to ask questions and all questions answered. Thank you for allowing me to participate in her care Orders: Orders Lipase Today R10.9 - Unspecified abdominal pain Liver Panel Today R74.01 - Elevation of levels of liver transaminase levels Creatinine Today R10.11 - Right upper quadrant pain Blood Urea Nitrogen Today R10.11 - Right upper quadrant pain CT abdomen pelvis w IV con Today R10.9 - Unspecified abdominal pain Medications: New linaclotide (Linzess) 145 mcg PO DAILY 30 caps 2RF Refilled simethicone (Gas Relief (simethicone)) 180 mg PO BID PRN 180 caps 4RF abdominal distention Coding Level of Care Code Est Pt Level 4 (36679) Diagnoses Drug-induced constipation K59.03 Constipation type: drug induced constipation Gastroesophageal reflux disease, unspecified whether esophagitis present K21.9 Esophagitis presence: esophagitis presence not specified Irritable bowel syndrome with constipation K58.1 Irritable bowel syndrome type: with constipation Time Spent (min) 35 Comment 25 minutes spent with patient and additional 10 minutes spent reviewing her records
== END 2023-03-07 14:29 | disposition home or self-care (01) ==
PROVIDERS: PCP Internal Medicine; Visit Provider Nurse Practitioner Family
DX: K59.03 Drug induced constipation (principal); K21.9 Gastro-esophageal reflux disease without esophagitis; K58.1 Irritable bowel syndrome with constipation
CPT/HCPCS: 99214

== ENCOUNTER 2023-03-22 11:29 | Outpatient (AMB) | payer OTHER, SELFPAY ==
--- NOTE | 2023-03-22 12:03 | MHC.OFFVIS ---
Intake Vital Signs 03/22/23 12:04 Height 5 ft 6 in BP 152/70 H Blood Pressure Location Rt brachial Position Sitting Pulse 94 Pulse Source Pulse Oximeter Pulse Oximetry (%) 97 Oxygen Delivery Method Room Air Intake Visit Reasons: 3 mo f/u - CONF Intake Note: Patient presents for 3 month follow up. I have plenty concerns Allergies bee venom protein (honey bee) Allergy (Severe, Verified 03/22/23 12:05) Anaphylaxis Penicillins Allergy (Severe, Verified 03/22/23 12:05) Unknown Medication List - Last Reconciled 03/22/23 by TAYE Ashton albuterol sulfate 90 mcg/actuation (Ventolin HFA) 0 mcg inhalation alprazolam 2 mg PO TID amitriptyline 75 mg (3 x 25 mg) PO BEDTIME 30 days back brace Lumbar back support. Use when sitting baclofen 20 mg (2 x 10 mg) PO BEDTIME 30 days blood pressure monitor As directed cane As directed cane Single point cane. Use when walking [Cane tips As directed] carbidopa-levodopa 25-100 mg 1 tab PO 3-4 x's per day; 30 days cetirizine 10 mg PO DAILY docusate sodium 100 mg PO BEDTIME [Door alarm apply to bedroom and exit door at night] epinephrine 0.3 mg IM Q4H PRN etodolac 500 mg PO BID [Laser alarm Laser alarm applied to head of bed, turn on nightly; ] linaclotide (Linzess) 145 mcg PO DAILY lisinopril 40 mg PO DAILY multivitamin (Daily Multi-Vitamin tablet) 1 tab PO DAILY 30 days omeprazole 20 mg PO DAILY pregabalin 150 mg PO TID 30 days sennosides (Senna Laxative) 17.2 mg (2 x 8.6 mg) PO BEDTIME simethicone (Gas Relief (simethicone)) 180 mg PO BID PRN tramadol 50 mg PO Q6-8H PRN 14 days trazodone 100 mg PO BEDTIME verapamil ER 120 mg PO QPM 30 days vitamin B complex (Vitamins B Complex capsule) 1 cap PO DAILY 90 days walker (Ultra-Light Rollator misc) Seated 4 wheeled walker with basket HPI HPI Comments History of Present Illness Details 62-yr-old female presents for f/u visit. Pt reports she has been noticing heart rate from 106-112 bpm- states happened a few weeks ago, during a regular day. Unsure if this was r/t activity levels. On Jan 20, she was trying to get up from the floor, when a 6 month old lab pounced on her, which caused her to fall and strike her right frontal/eye region. She does not recall getting up afterwards, however the people around her told her she was responding. After the fall, she had right eye bruising and swelling. She felt that her neck muscles were pulled and tight. Continues to need assist w/ ADLs and IADLs. She continues to have tremor. She is noticing more joint popping/noises. Her knee often feels like it will give out. She still has back pain- makes it hard to stand for long, feels like her upper body could just fall forward. She is trying to walk and stand up longer. She notices different colors in her BLE. She did not see pain management- there was no work comp auth for the visit, but pt states after the scheduled visit, she rec'd an out-of-date approval. She continues to be f/b GI- states recent elevated LFTs. [facility] Medical History (Updated 03/22/23 @ 13:07 by TAYE Ashton) Migraine PTSD (post-traumatic stress disorder) Neuropathy Hyperlipidemia Chronic back pain Asthma Anxiety disorder Parasomnia, unspecified Sleep disorder, unspecified Chronic migraine without aura Complex regional pain syndrome type II Surgical History Hx of colonoscopy H/O carpal tunnel repair H/O: hysterectomy Family History Mother Cancer Sister Hypertension Social History Household Members: None Alcohol intake: current Alcohol intake frequency: a few times a week Patient Tobacco Use Status: Current everyday Tobacco user Cigarettes Per Day: 5 Review of Systems Const All systems reviewed & are unremarkable except as noted in HPI and below Physical Exam Vital Signs: Last Vital Signs Pulse 94 03/22/23 12:04 BP 152/70 H 03/22/23 12:04 Pulse Ox 97 03/22/23 12:04 Oxygen Delivery Method Room Air 03/22/23 12:04 Const General: cooperative and no acute distress Resp Effort & Inspection: normal respiratory effort and able to speak in complete sentences Neuro Other: A&O x's 3 Soft voice Mild decreased expression and blink. Right upper extremity rest and postural tremor Slow to stand, short steps, antalgic gait w/ cane. Assessment & Plan Assessment & Plan (1) Complex regional pain syndrome type II: Comment: s/p injury at work on 12/01/15. Progressed to include BUE & BLE. Code(s): G56.40 - Causalgia of unspecified upper limb (2) Tremor: Comment: a/w decreased facial expression/blink, rest tremor, altered gait, drooling, constipation, REM sleep behaviors, falls. NALLELY scan- negative. Likely r/t CRPS type II. Code(s): R25.1 - Tremor, unspecified (3) Chronic migraine without aura: Code(s): G43.709 - Chronic migraine without aura, not intractable, without status migrainosus (4) Gait difficulty: Code(s): R26.9 - Unspecified abnormalities of gait and mobility Plan Reviewed recent GI and PCP notes. Pt is scheduled for f/u labs from GI. Will check CBC, lipids, b12, folate, ESR. CRP, HgA1C, TSH, HAJA/RF, amitriptyline level Note if LFTs remain elevated- should consider decreasing medications w/ strong hepatic metabolism. For sleep disorder- Continue safety measures. Can continue Xanax per out-side provider- we will defer to PCP for refills. ? For migraine- Continue Amitriptyline 75 mg qhs. Continue Verapamil SR 120mg qhs May use etodolac prn. Future considerations- CGRP MAB (Emgality or Ajovy d/t no constipation ADR risk). ? For CRPS/tremor, back pain, and gait difficulty- Continue Sinemet 25-100mg 1 tab tid - qid- for tremor, tone, and bradykinesia. Continue Amitriptyline 75mg qhs- consider adjusting upon review of labs. Continue Pregabalin 150mg tid. Hold Tramadol 50mg prn. Walk w/ cane. Will f/u on work comp referral auth to Pain Management. Discussed PT- pt would like to see pain management first. Continue [facility] RN services. For BLE discolorations- f/u dermatology. Previous trials- Gabapentin- lost effectiveness. Tramadol- helpful, given for short courses only. ? f/u in 4 months or sooner prn. Orders: Orders Erythrocyte Sedimentation Rate Today E78.5 - Hyperlipidemia, unspecified, G56.40 - Causalgia of unspecified upper limb, G62.9 - Polyneuropathy, unspecified, I10 - Essential (primary) hypertension, K59.00 - Constipation, unspecified, R25.1 - Tremor, unspecified CRP High Sensitivity Today E78.5 - Hyperlipidemia, unspecified, G56.40 - Causalgia of unspecified upper limb, G62.9 - Polyneuropathy, unspecified, I10 - Essential (primary) hypertension, K59.00 - Constipation, unspecified, R25.1 - Tremor, unspecified Hemoglobin A1c Today E78.5 - Hyperlipidemia, unspecified, G56.40 - Causalgia of unspecified upper limb, G62.9 - Polyneuropathy, unspecified, I10 - Essential (primary) hypertension, K59.00 - Constipation, unspecified, R25.1 - Tremor, unspecified Vitamin B12 and Folate Today E78.5 - Hyperlipidemia, unspecified, G56.40 - Causalgia of unspecified upper limb, G62.9 - Polyneuropathy, unspecified, I10 - Essential (primary) hypertension, K59.00 - Constipation, unspecified, R25.1 - Tremor, unspecified TSH reflex Free T4 Today E78.5 - Hyperlipidemia, unspecified, G56.40 - Causalgia of unspecified upper limb, G62.9 - Polyneuropathy, unspecified, I10 - Essential (primary) hypertension, K59.00 - Constipation, unspecified, R25.1 - Tremor, unspecified HAJA Reflex Titer and Pattern Today E78.5 - Hyperlipidemia, unspecified, G56.40 - Causalgia of unspecified upper limb, G62.9 - Polyneuropathy, unspecified, I10 - Essential (primary) hypertension, K59.00 - Constipation, unspecified, R25.1 - Tremor, unspecified Rheumatoid Factor Today E78.5 - Hyperlipidemia, unspecified, G56.40 - Causalgia of unspecified upper limb, G62.9 - Polyneuropathy, unspecified, I10 - Essential (primary) hypertension, K59.00 - Constipation, unspecified, R25.1 - Tremor, unspecified Lipid Panel with Reflex Today E78.5 - Hyperlipidemia, unspecified, G62.9 - Polyneuropathy, unspecified Complete Blood Count Auto Diff Today E78.5 - Hyperlipidemia, unspecified, G56.40 - Causalgia of unspecified upper limb, G62.9 - Polyneuropathy, unspecified, I10 - Essential (primary) hypertension, K59.00 - Constipation, unspecified, R25.1 - Tremor, unspecified Comprehensive Met. Panel Today E78.5 - Hyperlipidemia, unspecified, G56.40 - Causalgia of unspecified upper limb, G62.9 - Polyneuropathy, unspecified, I10 - Essential (primary) hypertension, K59.00 - Constipation, unspecified, R25.1 - Tremor, unspecified Creatine Kinase Total Today E78.5 - Hyperlipidemia, unspecified, G56.40 - Causalgia of unspecified upper limb, G62.9 - Polyneuropathy, unspecified, I10 - Essential (primary) hypertension, K59.00 - Constipation, unspecified, R25.1 - Tremor, unspecified Amitriptyline (Elavil), Serum Today G56.40 - Causalgia of unspecified upper limb, R74.01 - Elevation of levels of liver transaminase levels Medications: New multivitamin (Daily Multi-Vitamin tablet) 1 tab PO DAILY 30 days 30 tabs 6RF Coding Level of Care Code Est Pt Level 4 (23050) Diagnoses Complex regional pain syndrome type II G56.40 Tremor R25.1 Chronic migraine without aura G43.709 Gait difficulty R26.9
[2023-03-22 12:04] VITALS: BP 152/70; PULSE 94; O2SAT 97
== END 2023-03-22 12:51 | disposition home or self-care (01) ==
PROVIDERS: PCP Internal Medicine; Visit Provider Nurse Practitioner Family
DX: G56.40 Causalgia of unspecified upper limb (principal); R25.1 Tremor, unspecified; G43.709 Chronic migraine without aura, not intractable, without status migrainosus; R26.9 Unspecified abnormalities of gait and mobility
CPT/HCPCS: 99214

== ENCOUNTER → 2023-03-22 11:29 | Outpatient (BNVA) | payer OTHER, SELFPAY | PROVIDERS: PCP Internal Medicine; Visit Provider Nurse Practitioner Family | DX: G56.40 Causalgia of unspecified upper limb (principal); G43.709 Chronic migraine without aura, not intractable, without status migrainosus; R25.1 Tremor, unspecified; R26.9 Unspecified abnormalities of gait and mobility | CPT/HCPCS: 99212 ==

== ENCOUNTER 2023-04-06 12:37 | Outpatient (REF) | payer OTHER, SELFPAY ==
[2023-04-06 14:09] LABS: MANUAL DIFF FLAG NO
[2023-04-06 14:11] LABS: Basophils Absolute Auto 0.1 X10*3/uL (0.0-0.2); Basophils Percent Auto 0.9 % (0-2); Eosinophils Absolute Auto 0.1 X10*3/uL (0.0-0.4); Eosinophils Percent Auto 0.8 % (0-4); Hematocrit 48.6 % (37.0-47.0); Hemoglobin 16.6 g/dl (12.0-16.0); Imm Gran Abs Auto 0.02 X10*3/uL (0.00-0.03); Imm Gran Pct Auto 0.3 % (0.0-0.4); Lymphocytes Absolute Auto 2.3 X10*3/uL (1.2-4.9); Mean Corpuscular HGB Conc 34.2 g/dl (31.0-35.0); Mean Corpuscular Hemoglobin 33.7 pg (27.0-33.0); Mean Corpuscular Volume 98.6 fL (80.0-98.0); Mean Platelet Volume 13.2 fL (9.4-12.3); Monocytes Absolute Auto 0.6 X10*3/uL (0.1-1.2); Monocytes Percent Auto 8.6 % (2-11); Neutrophils Absolute Auto 3.6 x10*3/uL (2.0-8.3); Neutrophils Percent Auto 54.4 % (45-73); Platelet Count 173 X10*3/uL (160-400); Red Blood Count 4.93 X10*6/uL (4.20-5.50); Red Cell Distribution Width 13.8 % (11.0-16.0); White Blood Count 6.6 X10*3/uL (4.8-10.8)
[2023-04-06 14:25] LABS: Estimated Average Glucose 103 mg/dL; Hemoglobin A1c % 5.2 % (<6.0)
[2023-04-06 14:44] LABS: Rheumatoid Factor < 13.0 IU/mL (<15.0)
[2023-04-06 14:50] LABS: Cholesterol 259 mg/dL (<200); HDL Cholesterol 83 mg/dL (>40); LDL Cholesterol Calculated 156 mg/dL (<100); Triglycerides 104 mg/dL (<150)
[2023-04-06 14:51] LABS: Erythrocyte Sedimentation Rate 10 MM/HR (0-20)
[2023-04-06 15:05] LABS: TSH reflex Free T4 0.58 uIU/mL (0.32-4.0)
[2023-04-06 15:06] LABS: Reflex LDLD? No
[2023-04-06 15:13] LABS: Folate 7.9 ng/mL (> or = 4.0); Vitamin B12 382 pg/mL (200-900)
[2023-04-06 19:32] LABS: Alanine Aminotransferase 72 U/L (0-31); Albumin Level 4.1 g/dL (3.5-5.0); Alkaline Phosphatase 104 U/L (39-117); Anion Gap 13 (12-20); Aspartate Amino Transferase 118 U/L (5-31); Bilirubin Total 0.4 mg/dL (0.0-1.0); Blood Urea Nitrogen 9 mg/dL (9-16); Calcium 9.9 mg/dL (8.4-10.2); Carbon Dioxide 28 mmol/L (22-29); Chloride 105 mmol/L (96-108); Estimated Glomerular Filt Rate > 60; Glucose Random 86 mg/dL (60-115); Sodium 142 mmol/L (135-145)
[2023-04-07 19:42] LABS: CRP High Sensitivity >10.0 mg/L
[2023-04-10 07:09] LABS: Amitriptyline, Serum 35 mcg/L; Nortriptyline, Serum 43 mcg/L; Total (Ami+Nor) 78 mcg/L (100-250)
[2023-04-12 20:33] LABS: Anti Nuclear Antibody Screen NEGATIVE (NEGATIVE)
== END 2023-04-06 12:38 | disposition home or self-care (01) ==
LOC: HO.WFDLDS 12:37
PROVIDERS: Visit Provider Nurse Practitioner Family
DX: I10 Essential (primary) hypertension (principal); R25.1 Tremor, unspecified; K59.00 Constipation, unspecified; G56.40 Causalgia of unspecified upper limb; G62.9 Polyneuropathy, unspecified; E78.5 Hyperlipidemia, unspecified; R74.01 Elevation of levels of liver transaminase levels
CPT/HCPCS: 36415; 80053; 80061; 80335; 82550; 82607; 82746; 83036; 84443; 85025; 85652; 86038; 86141; 86431

== ENCOUNTER 2023-04-11 10:04 | Outpatient (AMB) | payer OTHER, SELFPAY ==
--- NOTE | 2023-04-11 10:21 | A.OFFVIS_ITS ---
Intake Vital Signs 04/11/23 10:26 Height 5 ft 6 in Weight 205 lb BMI 33.1 BP 124/104 H Blood Pressure Location Lt brachial Position Sitting Pulse 104 H Intake Visit Reasons: 5 week follow up Intake Note: Cecille presents in the office as a 5 week follow up. CC: She never got the medications you gave her at last visit and also was never scheduled for the scan that you ordered. Inspector Subassemblies Required: No Allergies bee venom protein (honey bee) Allergy (Severe, Verified 04/11/23 10:26) Anaphylaxis Penicillins Allergy (Severe, Verified 04/11/23 10:26) Unknown HPI 5 week follow up HPI Details LAST VISIT: Constipation GERD (gastroesophageal reflux disease) IBS (irritable bowel syndrome) Plan Will order liver panel, lipase. Will send patient for CT scan with IV and oral contrast. Start Linzess 145 mcg daily. Patient will call in couple weeks if this not going to be effective. I will see her in 4-5 weeks to re-evaluate. Will try to get [facility] staff to follow-up on patient's diet. Low FODMAP diet discussed with patient. List of food recommended as well as list of food to avoid given to patient. Patient is agreeable to this plan and verbalizes understanding of instructions. She was given the opportunity to ask questions and all questions answered. ? Thank you for allowing me to participate in her care Orders Medications New linaclotide (Linzess) 145 mcg PO DAILY 30 caps 2RF Refilled simethicone (Gas Relief (simethicone)) 180 mg PO BID PRN 180 caps 4RF abdominal distention TODAY'S VISIT Patient is here today for follow-up. Patient reports that she was unable to get Linzess from pharmacy. Medication was not filled unsure why. Patient continues to be bloated and continues to be constipated. Patient has CT scan scheduled for April 18.. Patient tried low FODMAP diet, however reports that her the food is very expensive and she is trying to eat on a budget. Patient denies any nausea or vomiting. Patient denies melena, hematochezia, unintentional weight loss or ribbon like stools. Patient reports occasional dyspepsia without dysphagia or odynophagia. Taking omeprazole daily. Patient also reports burning with urination. Denies any fever or chills PFSH Medical History Migraine PTSD (post-traumatic stress disorder) Neuropathy Hyperlipidemia Chronic back pain Asthma Anxiety disorder Parasomnia, unspecified Sleep disorder, unspecified Chronic migraine without aura Complex regional pain syndrome type II Surgical History Hx of colonoscopy H/O carpal tunnel repair H/O: hysterectomy Family History Mother Cancer Sister Hypertension Social History Household Members: None Alcohol intake: current Alcohol intake frequency: a few times a week Patient Tobacco Use Status: Current everyday Tobacco user Cigarettes Per Day: 5 Review of Systems Const Denies weight gain and Denies weight loss ENT Reports no additional complaints, Denies dysphagia and Denies odynophagia Card Reports no additional complaints Resp Reports no additional complaints GI Denies abdominal pain, Denies belching, Denies melena, Reports bloating, Reports constipation, Denies dysphagia, Denies excessive flatus, Denies dyspepsia, Denies heartburn, Denies diarrhea, Denies loose stools, Denies nausea, Denies odynophagia and Denies vomiting Reports no additional complaints and Reports dysuria (Burning) Musc Reports no additional complaints Neuro Reports no additional complaints Psych Reports no additional complaints Endo Reports no additional complaints Physical Exam Vital Signs: Last Vital Signs Pulse 104 H 04/11/23 10:26 BP 124/104 H 04/11/23 10:26 BMI result Body Mass Index 33.1 Const General: healthy appearing, no acute distress and well developed Nutritional Appearance: obese Orientation/consciousness: patient oriented x3 Resp Effort & Inspection: normal respiratory effort, able to speak in complete sentences, no tracheal deviation and symmetric chest movement Auscultation: clear to auscultation bilaterally Cardio Rate: regular rate GI Inspection: Yes normal to inspection, No distended and Yes obesity Palpation (GI): Soft to palpation, not firm, nontender and No hepatosplenomegaly present Auscultation: normal bowel sounds General: Yes no CVA tenderness Back/Spine/Pelvis Back: no CVA tenderness Skin General skin exam: elasticity normal, turgor normal and dry skin Neuro General: patient oriented x3 Psych Appearance: grossly normal Mental Status: mental status grossly normal Assessment & Plan Assessment & Plan (1) Constipation: Code(s): K59.00 - Constipation, unspecified Qualifiers: Constipation type: drug induced constipation Qualified Code(s): K59.03 - Drug induced constipation (2) GERD (gastroesophageal reflux disease): Code(s): K21.9 - Gastro-esophageal reflux disease without esophagitis Qualifiers: Esophagitis presence: esophagitis presence not specified Qualified Code(s): K21.9 - Gastro-esophageal reflux disease without esophagitis (3) IBS (irritable bowel syndrome): Code(s): K58.9 - Irritable bowel syndrome without diarrhea Qualifiers: Irritable bowel syndrome type: with constipation Qualified Code(s): K58.1 - Irritable bowel syndrome with constipation Plan Will work on PA for Linzess. Patient will go get her CT scan done. Reports pelvic pain and burning with urination, will send patient for UA. Long discussion with patient about dietary changes. Increasing fluid intake and activity to promote better bowel motility. Patient will return in 5 weeks, sooner on as needed basis. Patient is agreeable to this plan and verbalizes understanding of instructions. She was given the opportunity to ask questions and all questions answered. Thank you for allowing me to participate in her care Orders: Orders Creatinine Today R10.11 - Right upper quadrant pain Blood Urea Nitrogen Today R10.11 - Right upper quadrant pain UA CC w/rflx Micro + Cult Today R30.9 - Painful micturition, unspecified Coding Level of Care Code Est Pt Level 3 (53148) Diagnoses Drug-induced constipation K59.03 Constipation type: drug induced constipation Gastroesophageal reflux disease, unspecified whether esophagitis present K21.9 Esophagitis presence: esophagitis presence not specified Irritable bowel syndrome with constipation K58.1 Irritable bowel syndrome type: with constipation Time Spent (min) 30 Comment 20 minutes spent with patient and additional 10 minutes spent reviewing his records
[2023-04-11 10:26] VITALS: BP 124/104; PULSE 104; BMI 33.1
== END 2023-04-11 11:14 | disposition home or self-care (01) ==
PROVIDERS: PCP Internal Medicine; Visit Provider Nurse Practitioner Family
DX: K59.03 Drug induced constipation (principal); K21.9 Gastro-esophageal reflux disease without esophagitis; K58.1 Irritable bowel syndrome with constipation
CPT/HCPCS: 99213

== ENCOUNTER 2023-04-11 10:04 | Outpatient (REF) | payer OTHER, SELFPAY ==
[2023-04-11 12:52] LABS: Blood Urea Nitrogen 7 mg/dL (9-16); Estimated Glomerular Filt Rate > 60
[2023-04-11 14:02] LABS: Appearance Urine Clear; Color Urine Yellow; Glucose Urine UA Negative (Negative); Leukocyte Esterase Urine Negative (Negative); Nitrite Urine Negative (Negative); Urine Blood Negative (Negative); Urine Ketones Negative (Negative); Urine Protein Negative (Neg-Trace)
== END 2023-04-11 10:05 | disposition home or self-care (01) ==
LOC: HO.LAB 10:04
PROVIDERS: PCP Internal Medicine; Visit Provider Nurse Practitioner Family
DX: R10.11 Right upper quadrant pain (principal); R30.9 Painful micturition, unspecified
CPT/HCPCS: 36415; 81003; 82565; 84520; 99212

== ENCOUNTER 2023-05-16 10:34 | Outpatient (AMB) | payer OTHER, SELFPAY ==
[2023-05-16 10:40] VITALS: BP 118/74; PULSE 94; BMI 35.6
--- NOTE | 2023-05-16 10:40 | MHC.OFFVIS ---
Vital Signs 05/16/23 10:40 Height 5 ft 6 in Weight 220 lb 7.396 oz BMI 35.6 BP 118/74 Blood Pressure Location Lt brachial Position Sitting Pulse 94 Intake Visit Reasons: 5 weeks CIC, abd. pain Intake Note: Cecille presents in the office as a 5 week follow up for CIC and Abd pains. CC: She states that she is angry because everything has been ruled out and something is wrong in her intestines. She states that she is scheduled for a CT and a dye test the day before she was supposed to come here for 730am - she got a phone call that the procedure was not approved and needed to be cancelled. Smart Energy Specialist Required: No Allergies bee venom protein (honey bee) Allergy (Severe, Verified 05/16/23 10:46) Anaphylaxis Penicillins Allergy (Severe, Verified 05/16/23 10:46) Unknown HPI HPI 5 weeks CIC, abd. pain: Details: LAST VISIT Constipation GERD (gastroesophageal reflux disease) IBS (irritable bowel syndrome) Plan Will work on PA for Linzess. Patient will go get her CT scan done. Reports pelvic pain and burning with urination, will send patient for UA. Long discussion with patient about dietary changes. Increasing fluid intake and activity to promote better bowel motility. Patient will return in 5 weeks, sooner on as needed basis. Patient is agreeable to this plan and verbalizes understanding of instructions. She was given the opportunity to ask questions and all questions answered. ? Thank you for allowing me to participate in her care Orders Orders Creatinine Today R10.11 Blood Urea Nitrogen Today R10.11 UA CC w/rflx Micro + Cult Today R30.9 TODAY'S VISIT: Patient is here for follow-up. CT scan was not approved by her insurance. Patient had abdominal ultrasound done in 2021. Reports left lower quadrant pain and abdominal bloating. Patient reports that she has not moving her bowels well. No middle what she eats patient feels very bloated. Patient is unable to cook different kinds of meals as she has to cook meals for her son as well. Patient is asking if she can get meals delivered that are healthier. Patient has [facility] and has ACADEMIC VICE PRESIDENT assigned to help patient with meal prepping. Patient has nurse and ACADEMIC VICE PRESIDENT availability to come to help, however patient reports that she refused someone come into her house. Patient is not moving her bowels well currently is taking Linzess 145 mcg and it has not helping. Patient reports occasional postprandial dyspepsia without dysphagia or odynophagia. Patient is taking omeprazole daily. Patient denies melena, hematochezia, unintentional weight loss or ribbon like stools. Patient feels frustrated. History of enlarged liver and hepatic steatosis. Patient denies drinking alcohol, liver enzymes elevated AST greater than ALT PFSH Medical History Migraine PTSD (post-traumatic stress disorder) Neuropathy Hyperlipidemia Chronic back pain Asthma Anxiety disorder Parasomnia, unspecified Sleep disorder, unspecified Chronic migraine without aura Complex regional pain syndrome type II Surgical History Hx of colonoscopy H/O carpal tunnel repair H/O: hysterectomy Family History Mother Cancer Sister Hypertension Social History Household Members: None Alcohol intake: current Alcohol intake frequency: a few times a week Patient Tobacco Use Status: Current everyday Tobacco user Cigarettes Per Day: 5 Review of Systems Const Denies weight gain and Denies weight loss ENT Reports no additional complaints, Denies dysphagia and Denies odynophagia Card Reports no additional complaints Resp Reports no additional complaints GI Denies abdominal pain, Denies belching, Denies melena, Denies bloating, Denies change in bowel habits, Denies dysphagia, Denies excessive flatus, Denies dyspepsia, Denies heartburn, Denies diarrhea, Denies loose stools, Denies nausea, Denies odynophagia and Denies vomiting Musc Reports no additional complaints Neuro Reports no additional complaints Psych Reports no additional complaints Endo Reports no additional complaints Physical Exam Vital Signs: Last Vital Signs Pulse 94 05/16/23 10:40 BP 118/74 05/16/23 10:40 BMI result Body Mass Index 35.6 Results Reviewed Results Reviewed: Laboratory Tests 10/12/21 03/07/23 04/06/23 13:00 14:55 12:45 AST 96 H 96 H 118 H ALT 27 26 72 H Vitamin B12 382 Folate 7.9 TSH 0.58 Assessment & Plan Assessment & Plan (1) Constipation: Code(s): K59.00 - Constipation, unspecified Category: Medical Qualifiers: Constipation type: drug induced constipation Qualified Code(s): K59.03 - Drug induced constipation (2) GERD (gastroesophageal reflux disease): Code(s): K21.9 - Gastro-esophageal reflux disease without esophagitis Qualifiers: Esophagitis presence: esophagitis presence not specified Qualified Code(s): K21.9 - Gastro-esophageal reflux disease without esophagitis (3) IBS (irritable bowel syndrome): Code(s): K58.9 - Irritable bowel syndrome without diarrhea Qualifiers: Irritable bowel syndrome type: with constipation Qualified Code(s): K58.1 - Irritable bowel syndrome with constipation (4) Transaminitis: Code(s): R74.01 - Elevation of levels of liver transaminase levels (5) Hepatomegaly: Code(s): R16.0 - Hepatomegaly, not elsewhere classified Plan Will order ultrasound with elastography. Will check CRP, iron, lipase, rule out autoimmune liver disease. Patient reports postprandial abdominal bloating, will check pancreatic elastase. Patient states that she has not moving her bowels well will increase Linzess to 290 mcg daily. Patient was encouraged to increase fluid intake and activity to promote better bowel motility. Continue current PPI treatment. Avoid dietary triggers and late night snacking. Low FODMAP diet discussed with patient. Patient will eat more vegetables and fruits. I will see her in 3 months, sooner on as needed basis. Patient is agreeable to this plan and verbalizes understanding of instructions. She was given the opportunity to ask questions and all questions answered. Thank you for allowing me to participate in her care Orders: Orders US abdomen comp w elastography 05/16/23 R79.89 - Other specified abnormal findings of blood chemistry C Reactive Protein 05/16/23 K58.9 - Irritable bowel syndrome without diarrhea IRON PROFILE 05/16/23 D64.9 - Anemia, unspecified Lipase 05/16/23 R10.9 - Unspecified abdominal pain Smooth Muscle Antibody 05/16/23 R79.89 - Other specified abnormal findings of blood chemistry Hepatitis A,B,C Profile 05/16/23 R79.89 - Other specified abnormal findings of blood chemistry HIV Ab/Ag 05/16/23 R79.89 - Other specified abnormal findings of blood chemistry Pancreatic Elastase-1 05/16/23 R10.9 - Unspecified abdominal pain Alpha Fetoprotein 05/16/23 R79.89 - Other specified abnormal findings of blood chemistry Phosphatidylethanol, Blood 05/16/23 R74.01 - Elevation of levels of liver transaminase levels Liver Panel 05/16/23 R74.01 - Elevation of levels of liver transaminase levels Ferritin 05/16/23 R74.8 - Abnormal levels of other serum enzymes Mitochondrial Antibody 05/16/23 R79.89 - Other specified abnormal findings of blood chemistry Gamma Glutamyl Transpeptidase 05/16/23 R74.8 - Abnormal levels of other serum enzymes Ceruloplasmin 05/16/23 R79.89 - Other specified abnormal findings of blood chemistry Prothrombin Time INR 05/16/23 R74.8 - Abnormal levels of other serum enzymes Medications: New linaclotide (Linzess) 290 mcg PO QAM 30 caps 4RF K59.00 - Constipation, unspecified
== END 2023-05-16 11:18 | disposition home or self-care (01) ==
PROVIDERS: PCP Internal Medicine; Visit Provider Nurse Practitioner Family
DX: K59.03 Drug induced constipation (principal); K21.9 Gastro-esophageal reflux disease without esophagitis; K58.1 Irritable bowel syndrome with constipation; R74.01 Elevation of levels of liver transaminase levels; R16.0 Hepatomegaly, not elsewhere classified
CPT/HCPCS: 99214

== ENCOUNTER 2023-05-16 10:34 | Outpatient (REF) | payer OTHER, SELFPAY ==
[2023-05-16 12:21] LABS: INTERNATIONAL NORM RATIO 0.9 (0.9-1.1); Prothrombin Time 10.9 SEC (11.1-13.3)
[2023-05-16 13:01] LABS: Alanine Aminotransferase 36 U/L (0-31); Albumin Level 3.9 g/dL (3.5-5.0); Alkaline Phosphatase 113 U/L (39-117); Aspartate Amino Transferase 64 U/L (5-31); Bilirubin Direct 0.2 mg/dL (0.0-0.5); Bilirubin Total 0.4 mg/dL (0.0-1.0); Gamma Glutamyl Transpeptidase 110 U/L (7-33); Iron 86 mcg/dL (30-160); Lipase 17 U/L (8-78); Percent Iron Saturation 31 % (15-50); Total Iron Binding Capacity 276 mcg/dL (228-428); Total Protein 7.3 g/dL (6.5-8.0); Unsaturated Iron Binding 190 ug/dL
[2023-05-16 13:05] LABS: HBS Num1 44.01 mIU/mL (0-7.99); HBc Num1 0.06 S/CO (0.00-0.79); HBsAGNum1 0.34 S/CO (0.00-0.99); HIV AB/AG Nonreactive (Nonreactive); HIV Num 1 0.06 S/CO (0.00-0.99); Hepatitis A Antibody IgM 0.14 Index (0-0.79); Hepatitis B Core Antibody Nonreactive (Nonreactive); Hepatitis B Surface Antigen Negative (Negative); ~HepC Num1 0.09 S/CO (0.00-0.79); ~Hepatitis A Antibody IgM Nonreactive (Nonreactive); ~Hepatitis B Surface Antibody REACTIVE (Nonreactive); ~Hepatitis C Antibody Nonreactive (Nonreactive)
[2023-05-16 13:09] LABS: Ferritin 368 ng/mL (10-250)
[2023-05-17 16:38] LABS: Ceruloplasmin 29 mg/dL (18-53)
[2023-05-18 13:13] LABS: Mitochondrial Antibodies NEGATIVE (NEGATIVE)
[2023-05-18 22:57] LABS: Alpha Fetoprotein 4.7 ng/mL
[2023-05-21 13:19] LABS: Smooth Muscle Antibody <20 U (<20)
== END 2023-05-16 10:35 | disposition home or self-care (01) ==
LOC: HO.LAB 10:34
PROVIDERS: PCP Internal Medicine; Visit Provider Nurse Practitioner Family
DX: K58.1 Irritable bowel syndrome with constipation (principal); K59.03 Drug induced constipation; K21.9 Gastro-esophageal reflux disease without esophagitis; R10.9 Unspecified abdominal pain; R74.01 Elevation of levels of liver transaminase levels; R16.0 Hepatomegaly, not elsewhere classified; D64.9 Anemia, unspecified; R74.8 Abnormal levels of other serum enzymes; R79.89 Other specified abnormal findings of blood chemistry
CPT/HCPCS: 36415; 80076; 80321; 82105; 82390; 82728; 82977; 83540; 83690; 85610; 86015; 86140; 86381; 86704; 86706; 86709; 86803; 87340; 87389; 99212

== ENCOUNTER 2023-05-24 17:13 | Outpatient (REF) | payer OTHER, SELFPAY ==
[2023-05-31 17:58] LABS: Pancreatic Elastase-1 >500 mcg/g
== END 2023-05-24 17:14 | disposition home or self-care (01) ==
LOC: HO.LNP 17:13
PROVIDERS: Visit Provider Nurse Practitioner Family
DX: R10.9 Unspecified abdominal pain (principal)
CPT/HCPCS: 82656

== ENCOUNTER 2023-06-08 09:17 | Outpatient (REF) | payer OTHER, SELFPAY ==
--- NOTE | ~2023-06-08 | US_ITS ---
EXAMINATION: US COMPLETE ABDOMEN WITH LIVER ELASTOGRAPHY CLINICAL INFORMATION: Elevated liver function tests. COMPARISON: None available. TECHNIQUE: Real-time imaging of the abdominal viscera. Noninvasive ultrasound liver fibrosis assessment is performed using Juanito ElastPQ point quantification shear wave elastography (2D-SWE) with a C5-2 MHz transducer. Multiple elastography samples are obtained. FINDINGS: PANCREAS: Limited. The visualized pancreatic head and body are normal in appearance. The remainder of the pancreas is obscured from visualization by the overlying bowel gas. ABDOMINAL AORTA: The proximal segment is normal in caliber. The mid and distal segments are obscured by overlapping bowel gas. INFERIOR VENA CAVA: Visualized portions are normal. LIVER: The liver demonstrates normal contour and increased echogenicity. No focal lesion or intrahepatic biliary duct dilatation. The right lobe measures 22.3 cm in length. The left lobe measures 13.4 cm in length. Portal flow is towards the liver (hepatopetal). Shear wave liver elastography median stiffness is 1.96 m/s (reference: normal median stiffness is 1.3 m/s or less). IQR/median stiffness to assess sampling precision is 0.09 (reference: good quality data set is IQR/median stiffness of 0.15 or less). GALLBLADDER: Normal. The gallbladder is physiologically distended without evidence of stones, sludge, polyps, wall thickening or pericholecystic fluid. COMMON BILE DUCT: Normal in caliber measuring 0.4 cm in diameter. RIGHT KIDNEY: Normal. No hydronephrosis. No renal calculi or focal parenchymal lesions. The kidney measures 11.6 cm in maximum dimension. LEFT KIDNEY: Normal. No hydronephrosis. No renal calculi or focal parenchymal lesions. The kidney measures 11 point cm in maximum dimension. SPLEEN: Normal. The spleen measures 7.8 cm in maximum dimension. FREE FLUID: None. US/US abdomen comp w elastography IMPRESSION: 1. There is hepatomegaly. 2. There is generalized increase in hepatic echotexture, consistent with fatty infiltration or hepatocellular disease. Please correlate clinically. No focal hepatic mass or intrahepatic biliary dilatation is seen. 3. Liver elastography: Measurements are suggestive of compensated advanced chronic liver disease but need further test for confirmation. 4. Technically limited ultrasound examination of the pancreas and abdominal great vessels. REFERENCE: Society of Radiologists in Ultrasound Liver Stiffness Thresholds (2020): LIVER STIFFNESS THRESHOLDS: *Liver Stiffness equal or less than 1.3 m/s: High probability of being normal. *Liver Stiffness less than 1.7 m/s: In the absence of other known clinical signs, rules out compensated advanced chronic liver disease. *Liver Stiffness 1.7-2.1 m/s: Suggestive of compensated advanced chronic liver disease but need further test for confirmation. *Liver Stiffness over 2.1 m/s: Rules in compensated advanced chronic liver disease. *Liver Stiffness over 2.4 m/s: Suggestive of clinically significant portal hypertension. QUALITY OF DATA SET: *IQR/Median value equal or less than 0.15 implies a quality data set. *IQR/Median value over 0.15 implies a poor quality data set. SIGNIFICANT CHANGE FROM PRIOR EXAM: Significant change if liver stiffness measurement is 10% or greater from prior exam. OTHER CONSIDERATIONS: The stage of liver fibrosis may be overestimated in the setting of acute hepatitis, liver inflammation, elevated liver function tests, hepatic vascular congestion, obstructive cholestasis, non-fasting state, and infiltrative diseases such as amyloidosis and lymphoma. In some patients with NAFLD, the liver stiffness thresholds for compensated advanced chronic liver disease may be lower. In causes other than viral hepatitis and NAFLD, liver stiffness thresholds are not well established.
== END 2023-06-08 09:18 | disposition home or self-care (01) ==
LOC: HO.US 09:17
PROVIDERS: Visit Provider Nurse Practitioner Family
DX: R79.89 Other specified abnormal findings of blood chemistry (principal)
CPT/HCPCS: 76700; 76981

== ENCOUNTER 2023-07-18 09:29 | Outpatient (AMB) | payer OTHER, SELFPAY ==
--- NOTE | 2023-07-18 09:30 | MHC.OFFVIS ---
Intake Visit Reasons: 4 mo f/u - Confirmed Intake Note: Patient presents for 4 months. Mobility is getting worse, rash all over my body. Lack of energy and low motivation. Can't hold body up for long. Stomach and feet swell up. Allergies bee venom protein (honey bee) Allergy (Severe, Verified 07/18/23 09:35) Anaphylaxis Penicillins Allergy (Severe, Verified 07/18/23 09:35) Unknown HPI Comments Details: 63-yr-old female presents for f/u televideo visit via [employer]. Pt states she is getting worse overall. Pt reports she had [facility] ER eval in late April for stroke and OK. Per [facility] notes, pt had presented w/ left facial/sided weakness which self-resolved. Her work-up, brain MRI, CT/CTa, was non-acute- and was advised to undergo out-pt echocardiogram and holter- which she has not done yet. 05/02/23, Brain MRI w/o: 1. No acute/subacute infarct, mass, hemorrhage, or other acute intracranial abnormality. 2. Mild T2/FLAIR hyperintense foci in the white matter, nonspecific but most likely reflecting chronic small vessel disease. Lipid panel in April 2023- was WNL. States she is compliant w/ her statin. Her BP is at goal of < 130/80. She also notes she has been having increasing difficulty keeping her upper body upright. Her knee pops out of socket. She states her stomach is even larger. She states it makes it difficult to complete her ADLs and toilet hygiene. It also makes it difficult to bend over. She is f/b [facility]- had recent abd US and thought she was to have a colonoscopy- but has not heard. I have reached out to [facility] on this question. She needs a podiatry referal- will defer to PCP or [facility]. Pt also notes a lower body rash. She has not had f/u w/ her artifacts conservator in some time. [facility] Medical History Migraine PTSD (post-traumatic stress disorder) Neuropathy Hyperlipidemia Chronic back pain Asthma Anxiety disorder Parasomnia, unspecified Sleep disorder, unspecified Chronic migraine without aura Complex regional pain syndrome type II Surgical History Hx of colonoscopy H/O carpal tunnel repair H/O: hysterectomy Family History Mother Cancer Sister Hypertension Social History Household Members: None Alcohol intake: current Alcohol intake frequency: a few times a week Patient Tobacco Use Status: Current everyday Tobacco user Cigarettes Per Day: 5 Physical Exam Const General: cooperative and no acute distress Orientation/consciousness: patient oriented x3 Resp Effort & Inspection: normal respiratory effort and able to speak in complete sentences Neuro General: patient oriented x3 Cognition (Neuro): normal cognition Psych Appearance: grossly normal Mental Status: mental status grossly normal Speech and movement: Normal speech and movement present Affect: normal affect Attitude: cooperative Telehealth Telehealth Telehealth Platform: Touchotel Location of provider rendering services: practice address Location of patient: address on file Patient Identification confirmed using: Name, : Yes Telehealth method: video Patient verbally consented to treatment: Yes Patient verbally consented to billing insurance company: Yes Patient informed of any privacy concerns related to visit: Yes Minutes spent on Phone/Video with Pt.: 23 Assessment & Plan Assessment & Plan (1) Complex regional pain syndrome type II: Comment: s/p injury at work on 12/01/15. Progressed to include BUE & BLE. Code(s): G56.40 - Causalgia of unspecified upper limb Category: Medical (2) Rash: Code(s): R21 - Rash and other nonspecific skin eruption Category: Medical (3) Gait difficulty: Code(s): R26.9 - Unspecified abnormalities of gait and mobility Category: Medical (4) TIA (transient ischemic attack): Code(s): G45.9 - Transient cerebral ischemic attack, unspecified Category: Medical Plan Reviewed recent GI and PCP notes. Recent liver US- shows heptomegally w/ liver disease. Pt to f/u w/ GI. We made need to adjust her med regimen in f/u. For recent ? TIA: will order echocardiogram and 72 hr holter. Continue home BP and statin regimen. ? For sleep disorder- Continue safety measures. Can continue Xanax per out-side provider- we will defer to PCP for refills. ? For migraine- Continue Amitriptyline 75 mg qhs. Continue Verapamil SR 120mg qhs May use etodolac prn. Future considerations- CGRP MAB (Emgality or Ajovy d/t no constipation ADR risk). ? For CRPS/tremor, back pain, and gait difficulty- Continue Sinemet 25-100mg 1 tab tid - qid- for tremor, tone, and bradykinesia. Continue Amitriptyline 75mg qhs- consider adjusting upon review of labs. Continue Pregabalin 150mg tid. Hold Tramadol 50mg prn. Walk w/ cane. Check on status of Pain Management referral. Will refer pt to PT for gatit, stengthening, and endurance. Will refer pt back to her previous artifacts conservator for rash. Continue [facility] services. Previous trials- Gabapentin- lost effectiveness. Tramadol- helpful, given for short courses only. ? f/u in 4 months or sooner prn. Orders: Orders PT Evaluation and Treatment Today G56.40 - Causalgia of unspecified upper limb, R26.9 - Unspecified abnormalities of gait and mobility, R53.1 - Weakness CA echo transthoracic complete Today E78.5 - Hyperlipidemia, unspecified, G45.9 - Transient cerebral ischemic attack, unspecified, I10 - Essential (primary) hypertension ECG 3 day holter monitor Today E78.5 - Hyperlipidemia, unspecified, G45.9 - Transient cerebral ischemic attack, unspecified, R26.9 - Unspecified abnormalities of gait and mobility Referrals Dermatology Referral G56.40 - Causalgia of unspecified upper limb, R21 - Rash and other nonspecific skin eruption Coding Level of Care Code Tele Est Pt Level 4 (23377) Diagnoses Complex regional pain syndrome type II G56.40 Rash R21 Gait difficulty R26.9 TIA (transient ischemic attack) G45.9
== END 2023-07-18 16:00 ==
LOC: HO.HSMS 09:29
PROVIDERS: PCP Internal Medicine; Visit Provider Nurse Practitioner Family
DX: G56.40 Causalgia of unspecified upper limb (principal); R21 Rash and other nonspecific skin eruption; R26.9 Unspecified abnormalities of gait and mobility; G45.9 Transient cerebral ischemic attack, unspecified
CPT/HCPCS: 99214

== ENCOUNTER → 2023-07-18 09:29 | Outpatient (BNVA) | payer OTHER, SELFPAY | PROVIDERS: PCP Internal Medicine; Visit Provider Nurse Practitioner Family ==

== ENCOUNTER 2023-08-16 10:48 | Outpatient (AMB) | payer OTHER, SELFPAY ==
--- NOTE | 2023-08-16 10:53 | MHC.OFFVIS ---
Vital Signs 08/16/23 11:07 Height 5 ft 6 in Weight 222 lb BMI 35.8 BP 115/62 Blood Pressure Location Lt brachial Position Sitting Pulse 91 Intake Visit Reasons: 3 month follow up Intake Note: Patient follow up for constipation and lab/US results Patient cc: Nauseas, no energy with dizziness, abdominal pain with bloating, acid reflex with burning sensation, between diarrhea and constipation on and off, and also difficulty to swallow solid food. Obstetrics Nurse Practitioner Required: No Accompanied by: Self / Same As Patient Allergies bee venom protein (honey bee) Allergy (Severe, Verified 08/16/23 10:52) Anaphylaxis Penicillins Allergy (Severe, Verified 08/16/23 10:52) Unknown HPI HPI 3 month follow up: Details: LAST VISIT: Constipation GERD (gastroesophageal reflux disease) IBS (irritable bowel syndrome) Transaminitis Hepatomegaly Plan Will order ultrasound with elastography. Will check CRP, iron, lipase, rule out autoimmune liver disease. Patient reports postprandial abdominal bloating, will check pancreatic elastase. Patient states that she has not moving her bowels well will increase Linzess to 290 mcg daily. Patient was encouraged to increase fluid intake and activity to promote better bowel motility. Continue current PPI treatment. Avoid dietary triggers and late night snacking. Low FODMAP diet discussed with patient. Patient will eat more vegetables and fruits. I will see her in 3 months, sooner on as needed basis. Patient is agreeable to this plan and verbalizes understanding of instructions. She was given the opportunity to ask questions and all questions answered. ? Thank you for allowing me to participate in her care Orders Orders US abdomen comp w elastography 05/16/23 R79.89 C Reactive Protein 05/16/23 K58.9 IRON PROFILE 05/16/23 D64.9 Lipase 05/16/23 R10.9 Smooth Muscle Antibody 05/16/23 R79.89 Hepatitis A,B,C Profile 05/16/23 R79.89 HIV Ab/Ag 05/16/23 R79.89 Pancreatic Elastase-1 05/16/23 R10.9 Alpha Fetoprotein 05/16/23 R79.89 Phosphatidylethanol, Blood 05/16/23 R74.01 Liver Panel 05/16/23 R74.01 Ferritin 05/16/23 R74.8 Mitochondrial Antibody 05/16/23 R79.89 Gamma Glutamyl Transpeptidase 05/16/23 R74.8 Ceruloplasmin 05/16/23 R79.89 Prothrombin Time INR 05/16/23 R74.8 Medications New linaclotide (Linzess) 290 mcg PO QAM 30 caps 4RF K59.00 TODAY'S VISIT: Patient is here today for follow-up and to discuss lab results and ultrasound results. Continues to have elevated liver enzymes, hepatic steatosis found on ultrasound. Measurement shows compensated advanced chronic liver disease most likely from weight gain and alcohol use. Phosphaditylethanol checked and it was 172 (<20 norm). Patient does admit to be drinking alcohol her numbers are quite elevated that shows me that patient does in fact drink alcohol. Patient is trying to get special meals delivered, however that was not approved by her insurance. Patient does have a in house help that was told to help with cooking. Patient reports that she does not have money for grocery. We have discussed with her to try to replace 1 of the meals with protein shakes to try to help her lose weight. Patient reports that she does not have money for protein shakes. Patient reports that she is more sedentary now as she gained weight, reports that her abdomen is large. States that Linzess is helping her go to the bathroom. Patient reports constant pain. States that her neck cracks all the time. Rheumatoid factor and HAJA were normal. Patient sees Neurology. She is on large dose of alprazolam 2 mg 3 times a day, baclofen at night time. Patient is also taking carbidopa - levodopa. She is due to go for colonoscopy we were going to discuss going for procedure today, however patient was admitted to [facility] for TIA, chest pain, shortness of breath and weakness and she is going to see cardiology next week. We will send message to school office manager to ask for clearance before proceeding with procedure. In the meantime I will order enterography. Patient did had increased CRP possible Crohn's. She continues to have abdominal pain. Ascites was not seen on her ultrasound. [facility] Medical History Migraine PTSD (post-traumatic stress disorder) Neuropathy Hyperlipidemia Chronic back pain Asthma Anxiety disorder Parasomnia, unspecified Sleep disorder, unspecified Chronic migraine without aura Complex regional pain syndrome type II Surgical History Hx of colonoscopy H/O carpal tunnel repair H/O: hysterectomy Family History Mother Cancer Sister Hypertension Social History Household Members: None Alcohol intake: current Alcohol intake frequency: a few times a week Patient Tobacco Use Status: Current everyday Tobacco user Cigarettes Per Day: 5 Review of Systems Const Denies weight gain and Denies weight loss ENT Reports no additional complaints, Denies dysphagia and Denies odynophagia Card Reports no additional complaints Resp Reports no additional complaints GI Denies abdominal pain, Denies belching, Denies melena, Denies bloating, Denies change in bowel habits, Denies dysphagia, Denies excessive flatus, Denies dyspepsia, Denies heartburn, Denies diarrhea, Denies loose stools, Denies nausea, Denies odynophagia and Denies vomiting Musc Reports no additional complaints Neuro Reports no additional complaints Psych Reports no additional complaints Endo Reports no additional complaints Physical Exam Vital Signs: Last Vital Signs Pulse 91 08/16/23 11:07 BP 115/62 08/16/23 11:07 BMI result Body Mass Index 35.8 Const General: healthy appearing and no acute distress Nutritional Appearance: obese Orientation/consciousness: patient oriented x3 Resp Effort & Inspection: normal respiratory effort, able to speak in complete sentences, no tracheal deviation and symmetric chest movement Auscultation: clear to auscultation bilaterally Cardio Rate: regular rate GI Inspection: Yes normal to inspection, No distended and Yes obesity Palpation (GI): Soft to palpation, not firm, nontender and No hepatosplenomegaly present Auscultation: normal bowel sounds General: Yes no CVA tenderness Back/Spine/Pelvis Back: no CVA tenderness Skin General skin exam: elasticity normal, turgor normal and dry skin Neuro General: patient oriented x3 Extrem Other: Bilateral lower extremity edema, 2+ pitting bilaterally, positive pedal pulses Psych Appearance: grossly normal Mental Status: mental status grossly normal Results Reviewed Results Reviewed: Laboratory Tests 05/16/23 11:51 Iron 86 Ferritin 368 H GGT 110 H AST 64 H ALT 36 H C-Reactive Protein 1.30 H Ceruloplasmin 29 Lipase 17 Hepatitis A IgM Ab Nonreactive Hep Bs Antigen Negative Hep Bs Antibody REACTIVE Hep B Core Total Ab Nonreactive Hepatitis C Ab (EIA) Nonreactive Laboratory Tests 05/16/23 11:51 PEth 16:0/18.1 (POPEth) 172 (H) PEth 16:0/18.2 (PLPEth) 141 (H) ABDOMINAL ULTRASOUND WITH LIVER ELASTOGRAPHY FINDINGS: PANCREAS: Limited. The visualized pancreatic head and body are normal in appearance. The remainder of the pancreas is obscured from visualization by the overlying bowel gas. ABDOMINAL AORTA: The proximal segment is normal in caliber. The mid and distal segments are obscured by overlapping bowel gas. INFERIOR VENA CAVA: Visualized portions are normal. LIVER: The liver demonstrates normal contour and increased echogenicity. No focal lesion or intrahepatic biliary duct dilatation. The right lobe measures 22.3 cm in length. The left lobe measures 13.4 cm in length. Portal flow is towards the liver (hepatopetal). Shear wave liver elastography median stiffness is 1.96 m/s (reference: normal median stiffness is 1.3 m/s or less). IQR/median stiffness to assess sampling precision is 0.09 (reference: good quality data set is IQR/median stiffness of 0.15 or less). GALLBLADDER: Normal. The gallbladder is physiologically distended without evidence of stones, sludge, polyps, wall thickening or pericholecystic fluid. COMMON BILE DUCT: Normal in caliber measuring 0.4 cm in diameter. RIGHT KIDNEY: Normal. No hydronephrosis. No renal calculi or focal parenchymal lesions. The kidney measures 11.6 cm in maximum dimension. LEFT KIDNEY: Normal. No hydronephrosis. No renal calculi or focal parenchymal lesions. The kidney measures 11 point cm in maximum dimension. SPLEEN: Normal. The spleen measures 7.8 cm in maximum dimension. FREE FLUID: None. US/US abdomen comp w elastography IMPRESSION: 1. There is hepatomegaly. 2. There is generalized increase in hepatic echotexture, consistent with fatty infiltration or hepatocellular disease. Please correlate clinically. No focal hepatic mass or intrahepatic biliary dilatation is seen. 3. Liver elastography: Measurements are suggestive of compensated advanced chronic liver disease but need further test for confirmation. 4. Technically limited ultrasound examination of the pancreas and abdominal great vessels. Assessment & Plan Assessment & Plan (1) Constipation: Code(s): K59.00 - Constipation, unspecified Category: Medical Qualifiers: Constipation type: drug induced constipation Qualified Code(s): K59.03 - Drug induced constipation (2) GERD (gastroesophageal reflux disease): Code(s): K21.9 - Gastro-esophageal reflux disease without esophagitis Qualifiers: Esophagitis presence: esophagitis presence not specified Qualified Code(s): K21.9 - Gastro-esophageal reflux disease without esophagitis (3) IBS (irritable bowel syndrome): Code(s): K58.9 - Irritable bowel syndrome without diarrhea Qualifiers: Irritable bowel syndrome type: with constipation Qualified Code(s): K58.1 - Irritable bowel syndrome with constipation (4) Transaminitis: Code(s): R74.01 - Elevation of levels of liver transaminase levels (5) Hepatomegaly: Code(s): R16.0 - Hepatomegaly, not elsewhere classified (6) Elevated C-reactive protein (CRP): Code(s): R79.82 - Elevated C-reactive protein (CRP) (7) Elevated ferritin level: Code(s): R79.89 - Other specified abnormal findings of blood chemistry (8) Weight gain with edema: Code(s): R63.5 - Abnormal weight gain; R60.9 - Edema, unspecified (9) Bilateral lower extremity edema: Code(s): R60.0 - Localized edema (10) Abdominal bloating: Code(s): R14.0 - Abdominal distension (gaseous) Plan Patient is taking Linzess 290 mcg and she can continue taking the medication. Will add extra test rule out hemochromatosis. Patient had elevated CRP and had normal HAJA and rheumatoid factor, possibility of Crohn's disease we will send her for CT enterography. Patient is due to go for colonoscopy will need to be cleared by Cardiology as she has new symptoms, admitted for TIA with symptoms of facial weakness, shortness of breath with activity, bilateral lower extremity edema as well as occasional chest pain. Recommended for patient to change her meals, education was provided to her and list of food recommended as well as list of food to avoid was given to patient in the past. Please see if FACTORY HELPER can assist patient in meal planning. High protein diet, avoid carbs and sugars as much as possible. Patient should probably be referred to pain management so she can be better assessed and treated. I will have our motorcycle police officer call [facility] to see if she has assigned provider and RN that can go to the house and help. Unable to use our staff nurse navigator due to patient's insurance. Script for ensure given to patient. Patient will return to the office in 2-3 months, sooner if she will have worsening symptoms or any additional GI concerning symptoms. Discussed with patient also avoiding alcohol. Her levels are quite high. Mixing alcohol and benzos are not recommended. Thank you for allowing me to participate in her care Orders: Orders Creatinine Today R10.11 - Right upper quadrant pain DNA Analysis Hemochromatosis Today R79.89 - Other specified abnormal findings of blood chemistry Blood Urea Nitrogen Today R10.11 - Right upper quadrant pain CT enterography Today K58.9 - Irritable bowel syndrome without diarrhea, R10.9 - Unspecified abdominal pain, R79.82 - Elevated C-reactive protein (CRP) Medications: New food supplemt, lactose-reduced (Ensure Active Light oral liquid) 1 ea PO DAILY 1,422 mL 10RF Refilled linaclotide (Linzess) 290 mcg PO QAM 90 caps 4RF K59.00 - Constipation, unspecified Discontinued linaclotide (Linzess) Discontinued Reason: Doctor's Order 145 mcg PO DAILY 30 caps 2RF Coding Level of Care Code Est Pt Level 4 (85422) Diagnoses Drug-induced constipation K59.03 Constipation type: drug induced constipation Gastroesophageal reflux disease, unspecified whether esophagitis present K21.9 Esophagitis presence: esophagitis presence not specified Irritable bowel syndrome with constipation K58.1 Irritable bowel syndrome type: with constipation Transaminitis R74.01 Hepatomegaly R16.0 Elevated C-reactive protein (CRP) R79.82 Elevated ferritin level R79.89 Weight gain with edema R63.5; R60.9 Bilateral lower extremity edema R60.0 Abdominal bloating R14.0 Time Spent (min) 40 Comment 25 minutes spent with patient and additional 15 minutes spent reviewing her records
[2023-08-16 11:07] VITALS: BP 115/62; PULSE 91; BMI 35.8
== END 2023-08-16 12:00 | disposition home or self-care (01) ==
PROVIDERS: PCP Internal Medicine; Visit Provider Nurse Practitioner Family
DX: K59.03 Drug induced constipation (principal); K21.9 Gastro-esophageal reflux disease without esophagitis; K58.1 Irritable bowel syndrome with constipation; R74.01 Elevation of levels of liver transaminase levels; R16.0 Hepatomegaly, not elsewhere classified; R79.82 Elevated C-reactive protein (CRP); R79.89 Other specified abnormal findings of blood chemistry; R63.5 Abnormal weight gain; R60.9 Edema, unspecified; R60.0 Localized edema; R14.0 Abdominal distension (gaseous)
CPT/HCPCS: 99214

== ENCOUNTER → 2023-08-16 10:48 | Outpatient (BNVA) | payer OTHER, SELFPAY | PROVIDERS: PCP Internal Medicine; Visit Provider Nurse Practitioner Family | DX: K59.03 Drug induced constipation (principal); T50.905A Adverse effect of unspecified drugs, medicaments and biological substances, initial encounter; K21.9 Gastro-esophageal reflux disease without esophagitis; K58.1 Irritable bowel syndrome with constipation; R74.01 Elevation of levels of liver transaminase levels; R16.0 Hepatomegaly, not elsewhere classified; R79.82 Elevated C-reactive protein (CRP); R79.89 Other specified abnormal findings of blood chemistry; R63.5 Abnormal weight gain; R60.0 Localized edema; R14.0 Abdominal distension (gaseous); Z79.899 Other long term (current) drug therapy | CPT/HCPCS: 99212 ==

== ENCOUNTER → 2023-08-24 09:47 | Outpatient (REF) | payer OTHER, SELFPAY ==
--- NOTE | 2023-08-24 09:50 | HM_ITS ---
* Total monitoring time 4 days. * Underlying rhythm is sinus with an average rate of 90/Min. * Rare supraventricular ectopy. * Rare ventricular ectopy. * No significant pauses or AV blocks. * No patient markers or diary events. MTDD
--- NOTE | 2023-08-24 09:50 | CA_ITS ---
Transthoracic Echocardiogram Patient (Last, First, Middle): Cecille Edwards, Gender: Female Date of : 1960 Age: 63 Procedure Date: 08/24/2023 Procedure Type: Transthoracic Echocardiogram Location: OP Height: 167.64 cm Weight: 100.7 kg BSA: 2.09 m2 Heart Rate: 82 bpm BP: 116 / 68 mmHg Time Study Technician: SB Referring MD: Landy KOTHARI Protocol Manager: Alexx Gurrola MD Symptoms: G45.9 - Transient cerebral ischemic attack, unspecified Study Quality: Fair ECG Rhythm: Sinus Conclusions: - 1. Technically limited study despite use of contrast agent 2. Normal LV ejection fraction 55-60%. 3. Cardiac valvular Dopplers within normal limits Findings Procedure Information Contrast agent, definity, is being given per protocol without apparent complications. The quality of the study was technically difficult. The study quality is limited by patients body habitus and lung artifact. Left Ventricle Normal left ventricular size, thickness, and systolic function. The visually estimated ejection fraction is between 55-60%. Spectral Doppler is indicative of a normal filling pattern. Right Ventricle The right ventricle was not well visualized. Atria The left atrium is normal in size. Interatrial shunt cannot be excluded by agitated saline. The right atrium was not well visualized. Aortic Valve The aortic valve was not well visualized. There is no aortic valve stenosis. There is no aortic valve regurgitation. Mitral Valve The mitral valve was not well visualized. There is no mitral valve regurgitation. There is no mitral valve stenosis. Pulmonic Valve The pulmonic valve was not well visualized. Tricuspid Valve The tricuspid valve was not well visualized. Tricuspid regurgitation envelope is inadequate for calculation of right ventricular systolic pressure. Great Vessels The aorta was not well visualized. The pulmonary artery was not well visualized. Venous The inferior vena cava was not well visualized. Pericardium/Pleural The pericardium was not well visualized. Prior Study Comparison No prior study available for comparison. Recommendations, Care & Conclusions Consider a MARSHALL if clinically appropriate. Measurements 2D Linear Measurements IVSd: 0.67 0.6-0.9/0.6-1.0 cm LVIDd: 5.35 3.9-5.3/4.2-5.9 cm LVIDd Index: 2.56 2.4-3.2/2.2-3.1 cm/m2 LVPWd: 0.79 0.7-1.1 cm LV Mass: 169.78 67-162/88-224 g LV Mass Index: 81.23 43-95/49-115 g/m2 LVOT Diam: 2.20 3.0+(-)1.3 cm 2D Systolic Function EF 4C: 47.40 >55% EF 2C: 61.00 >55% EF BiP: 54.60 >55% Mitral Valve MV Pk E: 0.69 MV PK A: 0.78 MV Decel Time: 187.00 E/A: 0.90 E'Lateral: 5.22 E'Medial: 7.51 E/E' Med: 9.20 E/E' Lat: 13.30 PHT: 55.00 MVA PHT: 4.00 Decel [place]: 3.72 Aortic Valve AoV Pk Evert: 1.18 AoV Pk Grad: 6.00 KELLY: 2.62 LVOT LVOT Pk Evert: 0.82 LVOT Mn Evert: 0.58 LVOT VTI: 0.18 LVOT Pk Grad: 3.00 LVOT Mn Grad: 2.00 LVOT Diam: 2.20 LVOT Area: 3.80 Diastolic Function MV Pk E: 0.69 MV Pk A: 0.78 E/A: 0.90 E'Medial: 7.51 E/E' Med: 9.20 E' Laterial: 5.22 E/E' Lat: 13.30 Right Ventricle TAPSE (mm): 15.80 Tricuspid Valve RA Press: 3.00 Great Vessels Aorta Sinus of Valsalva: 3.00 2.0-3.5 cm Ao Asc: 3.40 2.1-3.4 cm Pulmonary Valve PV Pk Evert: 0.78 Peak PV Grad: 2.00 Updated in Other Vendor System with Status of Final Alexx Gurrola MD electronically signed on 08/24/2023 5:58:01 PM with status of Final
== END ==
LOC: HO.CARD 09:47
PROVIDERS: PCP Internal Medicine; Visit Provider Nurse Practitioner Family
DX: G45.9 Transient cerebral ischemic attack, unspecified (principal); R26.9 Unspecified abnormalities of gait and mobility; E78.5 Hyperlipidemia, unspecified
CPT/HCPCS: 93242; 93306; Q9957

== ENCOUNTER → 2023-08-24 09:50 | Outpatient (BNV) | payer OTHER, SELFPAY | PROVIDERS: PCP Internal Medicine; Visit Provider Internal Medicine Cardiovascular Disease | DX: I47.10 Supraventricular tachycardia, unspecified (principal); I49.3 Ventricular premature depolarization | CPT/HCPCS: 93244; 93306 ==

== ENCOUNTER 2023-10-16 08:14 | Outpatient (REF) | payer OTHER, SELFPAY ==
--- NOTE | ~2023-10-16 | CT_ITS ---
EXAMINATION: CT ENTEROGRAPHY ABDOMEN AND PELVIS WITH CONTRAST CLINICAL INFORMATION: Unspecified abdominal pain question of Crohn's disease COMPARISON: Ultrasound abdomen 06/08/2023 TECHNIQUE: Study performed with oral VoLumen (1500 mL) and 480 mL of water to distend the abdomen. The patient was injected with 85 mL Omnipaque 350 intravenous contrast which was administered without adverse effect. Coronal and sagittal reformatted images were obtained at the technologist's workstation. This CT examination was performed using dose optimization techniques as appropriate, variously including the following: *Automated exposure control *Adjustment of mA and/or kV according to patient size (this includes techniques or standardized protocols for targeted exams where dose is matched to indication/reason for exam; i.e. extremities or head) *Use of iterative reconstruction technique DLP: 962 mGy-cm FINDINGS: GASTROINTESTINAL FINDINGS: Stomach: Well-distended and normal in appearance. Small intestine: Satisfactorily distended and normal in appearance. Specifically, the terminal ileum appears normal. There is fatty infiltration of the ileocecal valve Large intestine: Well-distended and normal in appearance. No perirectal changes demonstrated. The appendix is not seen but there is no evidence of appendicitis. Additional findings: No abnormal enhancement of the vasa recta or significant mesenteric or retroperitoneal lymphadenopathy is seen. No abdominal abscess or fistulous tract demonstrated. LUNG BASES: The visualized lung bases are unremarkable. Some mild bibasilar atelectasis is present. LIVER, GALLBLADDER, AND BILIARY TREE: The liver is enlarged measuring 20 cm in greatest length with probable decreased attenuation suggesting hepatic steatosis as seen on prior ultrasound. No focal hepatic lesion or biliary ductal dilatation is present. The gallbladder is unremarkable with no evidence of radiopaque gallstones, gallbladder wall thickening, or obvious pericholecystic inflammatory changes. PANCREAS: Unremarkable. SPLEEN: Unremarkable. ADRENAL GLANDS: Unremarkable. KIDNEYS AND URETERS: The kidneys are normal in size, shape, and attenuation. No hydronephrosis, hydroureter, or calculi seen. A benign 1.0 cm right sided mid renal Bosniak class I renal cyst is noted which requires no additional imaging or follow up. No solid renal masses are seen. Some calcifications seen in the region of the left renal ministerio are likely vascular. No perinephric stranding. BLADDER: Unremarkable. ABDOMINAL WALL: No significant hernia is appreciated. LYMPH NODES: Shotty retroperitoneal lymph nodes are present but there is no retroperitoneal lymphadenopathy. VASCULAR: Calcific atherosclerotic changes are present in the aorta and iliofemoral vessels. There is no evidence of an abdominal aortic aneurysm. PELVIC VISCERA: The uterus is not seen. An abnormal adnexal mass is not detected. No free intraperitoneal fluid is present. OSSEOUS STRUCTURES: Unremarkable. Some minimal degenerative changes are seen along with mild grade 1 anterolisthesis of L4 upon L5. CT/CT enterography IMPRESSION: 1. A cause for the patient's abdominal pain has not been found. There is no CT evidence to suggest the presence of Crohn's disease 2. Incidental note made of an enlarged fatty liver, benign Bosniak class I right renal cyst which needs no additional imaging or follow up, hysterectomy and mild grade 1 anterolisthesis of L4 upon L5. Fleischner guidelines were followed. Electronically signed by: Addison Willis MD 10/17/2023 11:04 AM EDT
[2023-10-16] MEDS: Sorbitol/Mannit/Xanth Imaging 500 ML LIQUID 1500 ML PO (09:35)
[2023-10-16] MEDS: iohexoL 350 MG/ML 100 ML INFUS..BTL 85 ML IV (09:35)
[2023-10-17 08:47] LABS: Creatinine POC 0.8 mg/dL (0.5-1.4); GFR POC > 60
== END 2023-10-16 08:15 | disposition home or self-care (01) ==
LOC: HO.CT 08:14
PROVIDERS: PCP Internal Medicine; Visit Provider Nurse Practitioner Family
DX: R10.9 Unspecified abdominal pain (principal); K58.9 Irritable bowel syndrome, unspecified; R79.82 Elevated C-reactive protein (CRP)
CPT/HCPCS: 74177; 82565; Q9967

== ENCOUNTER 2023-10-30 11:11 | Outpatient (AMB) | payer OTHER, SELFPAY ==
[2023-10-30 11:13] VITALS: BP 118/66; PULSE 102; O2SAT 94; BMI 37.7
--- NOTE | 2023-10-30 11:13 | A.OFFVIS_ITS ---
Vital Signs 10/30/23 11:13 Height 5 ft 6 in Weight 233 lb 11.04 oz BMI 37.7 BP 118/66 Blood Pressure Location Rt brachial Position Sitting Pulse 102 H Pulse Source Pulse Oximeter Pulse Oximetry (%) 94 Oxygen Delivery Method Room Air Intake Visit Reasons: 2 months follow up Intake Note: Cecille presents in office today for a scheduled 2 mos FUV. CC: Pt reports that they have been doing worse since their last visit. Pt reports that they are struggling with their mental health at the moment. Pt has also been dealing with a rash recently that has been becoming worse; pt believes that this is insect related. Pt states that this has been very painful and describes the pain as a sharp, stabbing like pain throughout their body. Pt also finds that they are having increased difficulties with their fine motor skills lately. Pt knows that they have a prior hx of tremors and comorbidities, however; they find that this is becoming worse. Pt also finds that they have been having intermittent nausea without vomiting. Pt states that they cannot remember the last time that they had a bowel movement. Pt states that it has been about a week they believe. Pt also reports having difficulties getting their nutritional requirements as a result of their insurance giving them difficulties. Pt has not been able to get the resources they need either due to financial stress or insurance difficulties. Pt has not been taking the senna as they are not sure how to take it. Pt had received a letter recently from the office that had instructed her to not take the senna daily as she had been. Manager Telemetry Required: No Allergies bee venom protein (honey bee) Allergy (Severe, Verified 10/30/23 11:24) Anaphylaxis Penicillins Allergy (Severe, Verified 10/30/23 11:24) Unknown HPI HPI 2 months follow up: Details: LAST VISIT Constipation GERD (gastroesophageal reflux disease) IBS (irritable bowel syndrome) Transaminitis Hepatomegaly Elevated C-reactive protein (CRP) Elevated ferritin level Weight gain with edema Bilateral lower extremity edema Abdominal bloating Plan Patient is taking Linzess 290 mcg and she can continue taking the medication. Will add extra test rule out hemochromatosis. Patient had elevated CRP and had normal HAJA and rheumatoid factor, possibility of Crohn's disease we will send her for CT enterography. Patient is due to go for colonoscopy will need to be cleared by Cardiology as she has new symptoms, admitted for TIA with symptoms of facial weakness, shortness of breath with activity, bilateral lower extremity edema as well as occasional chest pain. Recommended for patient to change her meals, education was provided to her and list of food recommended as well as list of food to avoid was given to patient in the past. Please see if RESEARCH HYDRAULIC ENGINEER can assist patient in meal planning. High protein diet, avoid carbs and sugars as much as possible. Patient should probably be referred to pain management so she can be better assessed and treated. I will have our gunnery/ordnance officer call [facility] to see if she has assigned provider and RN that can go to the house and help. Unable to use our staff nurse navigator due to patient's insurance. Script for ensure given to patient. Patient will return to the office in 2-3 months, sooner if she will have worsening symptoms or any additional GI concerning symptoms. Discussed with patient also avoiding alcohol. Her levels are quite high. Mixing alcohol and benzos are not recommended. ? Thank you for allowing me to participate in her care Orders Orders Creatinine Today R10.11 DNA Analysis Hemochromatosis Today R79.89 Blood Urea Nitrogen Today R10.11 CT enterography Today K58.9, R10.9, R79.82 Medications New food supplemt, lactose-reduced (Ensure Active Light oral liquid) 1 ea PO DAILY 1,422 mL 10RF Refilled linaclotide (Linzess) 290 mcg PO QAM 90 caps 4RF K59.00 Discontinued linaclotide (Linzess) Discontinued Reason: Doctor's Order 145 mcg PO DAILY 30 caps 2RF TODAY'S VISIT: Patient is here today for follow-up and to discuss CT enterography, abdominal ultrasound with elastography and lab results. Upon reviewing last year visits patient has gained 30 lb in 1 year. Patient continues to tell me that she is unable to pay for food that is healthier. States that she has MAIL DELIVERER who can cook for her, however in order for her to buy food that is gluten, lactose in carb free she would have to spent a lot of money. Patient tried getting special meals and her insurance is not paying for it. Patient is frustrated. Lab results as well as CT enterography and ultrasound was discussed with patient in detail. We also talked about patient's drinking. She is denying drinking daily. Patient states that she drinks occasionally her level of phosphatidylethanol was high 172 and 174 and the normal range is less than 20. Patient also had elevated liver enzymes. Reports abdominal bloating and inability to have a bowel movement for over a week. Patient is taking Linzess as prescribed. Was told to stop senna. Patient denies any nausea or vomiting. Denies any melena, hematochezia. Trying to get patient for colonoscopy and waiting for her to have a cardiology appointment so she can be cleared to go for procedure. [facility] Medical History Migraine PTSD (post-traumatic stress disorder) Neuropathy Hyperlipidemia Chronic back pain Asthma Anxiety disorder Parasomnia, unspecified Sleep disorder, unspecified Chronic migraine without aura Complex regional pain syndrome type II Surgical History Hx of colonoscopy H/O carpal tunnel repair H/O: hysterectomy Family History Mother Cancer Sister Hypertension Social History Household Members: None Alcohol intake: current Alcohol intake frequency: a few times a week Patient Tobacco Use Status: Current everyday Tobacco user Cigarettes Per Day: 5 Review of Systems Const Denies weight gain and Denies weight loss ENT Reports no additional complaints, Denies dysphagia and Denies odynophagia Card Reports no additional complaints Resp Reports no additional complaints GI Reports abdominal pain (EPIGASTRIC), Denies belching, Denies melena, Reports bloating, Reports constipation, Denies dysphagia, Denies excessive flatus, Den ies dyspepsia, Denies heartburn, Denies diarrhea, Denies loose stools, Denies nausea, Denies odynophagia and Denies vomiting Reports no additional complaints Musc Reports no additional complaints Neuro Reports no additional complaints Psych Reports no additional complaints Endo Reports no additional complaints Physical Exam Vital Signs: Last Vital Signs Pulse 102 H 10/30/23 11:13 BP 118/66 10/30/23 11:13 Pulse Ox 94 10/30/23 11:13 Oxygen Delivery Method Room Air 10/30/23 11:13 BMI result Body Mass Index 37.7 Const General: healthy appearing and no acute distress Nutritional Appearance: obese Orientation/consciousness: patient oriented x3 Resp Effort & Inspection: normal respiratory effort, able to speak in complete sentences, no tracheal deviation and symmetric chest movement Auscultation: clear to auscultation bilaterally Cardio Rate: regular rate GI Inspection: Yes normal to inspection, No distended and Yes obesity Palpation (GI): Soft to palpation, not firm, nontender and No hepatosplenomegaly present Auscultation: normal bowel sounds General: Yes no CVA tenderness Back/Spine/Pelvis Back: no CVA tenderness Skin General skin exam: elasticity normal, turgor normal and dry skin Neuro General: patient oriented x3 Extrem Other: Bilateral lower extremity edema, 2+ pitting bilaterally, positive pedal pulses Psych Appearance: grossly normal Mental Status: mental status grossly normal Results Reviewed Results Reviewed: ABDOMINAL ULTRASOUND WITH ELASTOGRAPHY FINDINGS: PANCREAS: Limited. The visualized pancreatic head and body are normal in appearance. The remainder of the pancreas is obscured from visualization by the overlying bowel gas. ABDOMINAL AORTA: The proximal segment is normal in caliber. The mid and distal segments are obscured by overlapping bowel gas. INFERIOR VENA CAVA: Visualized portions are normal. LIVER: The liver demonstrates normal contour and increased echogenicity. No focal lesion or intrahepatic biliary duct dilatation. The right lobe measures 22.3 cm in length. The left lobe measures 13.4 cm in length. Portal flow is towards the liver (hepatopetal). Shear wave liver elastography median stiffness is 1.96 m/s (reference: normal median stiffness is 1.3 m/s or less). IQR/median stiffness to assess sampling precision is 0.09 (reference: good quality data set is IQR/median stiffness of 0.15 or less). GALLBLADDER: Normal. The gallbladder is physiologically distended without evidence of stones, sludge, polyps, wall thickening or pericholecystic fluid. COMMON BILE DUCT: Normal in caliber measuring 0.4 cm in diameter. RIGHT KIDNEY: Normal. No hydronephrosis. No renal calculi or focal parenchymal lesions. The kidney measures 11.6 cm in maximum dimension. LEFT KIDNEY: Normal. No hydronephrosis. No renal calculi or focal parenchymal lesions. The kidney measures 11 point cm in maximum dimension. SPLEEN: Normal. The spleen measures 7.8 cm in maximum dimension. FREE FLUID: None. US/US abdomen comp w elastography IMPRESSION: 1. There is hepatomegaly. 2. There is generalized increase in hepatic echotexture, consistent with fatty infiltration or hepatocellular disease. Please correlate clinically. No focal hepatic mass or intrahepatic biliary dilatation is seen. 3. Liver elastography: Measurements are suggestive of compensated advanced chronic liver disease but need further test for confirmation. 4. Technically limited ultrasound examination of the pancreas and abdominal great vessels. Laboratory Tests 05/16/23 11:51 Ferritin 368 H GGT 110 H AST 64 H ALT 36 H Ceruloplasmin 29 Lipase 17 Alpha Fetoprotein 4.7 Anti-Mitochondrial Ab NEGATIVE Anti-Smooth Muscle Ab <20 PEth 16:0/18.1 (POPEth) 172 (H) PEth 16:0/18.2 (PLPEth) 141 (H) Hepatitis A IgM Ab Nonreactive Hep Bs Antigen Negative Hep Bs Antibody REACTIVE Hep B Core Total Ab Nonreactive Hepatitis C Ab (EIA) Nonreactive HIV 1&2 Ab/P24 Ag [address] Non[address] ENTEROGRAPHY FINDINGS: GASTROINTESTINAL FINDINGS: Stomach: Well-distended and normal in appearance. Small intestine: Satisfactorily distended and normal in appearance. Specifically, the terminal ileum appears normal. There is fatty infiltration of the ileocecal valve Large intestine: Well-distended and normal in appearance. No perirectal changes demonstrated. The appendix is not seen but there is no evidence of appendicitis. Additional findings: No abnormal enhancement of the vasa recta or significant mesenteric or retroperitoneal lymphadenopathy is seen. No abdominal abscess or fistulous tract demonstrated. LUNG BASES: The visualized lung bases are unremarkable. Some mild bibasilar atelectasis is present. LIVER, GALLBLADDER, AND BILIARY TREE: The liver is enlarged measuring 20 cm in greatest length with probable decreased attenuation suggesting hepatic steatosis as seen on prior ultrasound. No focal hepatic lesion or biliary ductal dilatation is present. The gallbladder is unremarkable with no evidence of radiopaque gallstones, gallbladder wall thickening, or obvious pericholecystic inflammatory changes. PANCREAS: Unremarkable. SPLEEN: Unremarkable. ADRENAL GLANDS: Unremarkable. KIDNEYS AND URETERS: The kidneys are normal in size, shape, and attenuation. No hydronephrosis, hydroureter, or calculi seen. A benign 1.0 cm right sided mid renal Bosniak class I renal cyst is noted which requires no additional imaging or follow up. No solid renal masses are seen. Some calcifications seen in the region of the left renal ministerio are likely vascular. No perinephric stranding. BLADDER: Unremarkable. ABDOMINAL WALL: No significant hernia is appreciated. LYMPH NODES: Shotty retroperitoneal lymph nodes are present but there is no retroperitoneal lymphadenopathy. VASCULAR: Calcific atherosclerotic changes are present in the aorta and iliofemoral vessels. There is no evidence of an abdominal aortic aneurysm. PELVIC VISCERA: The uterus is not seen. An abnormal adnexal mass is not detected. No free intraperitoneal fluid is present. OSSEOUS STRUCTURES: Unremarkable. Some minimal degenerative changes are seen along with mild grade 1 anterolisthesis of L4 upon L5. CT/CT enterography IMPRESSION: 1. A cause for the patient's abdominal pain has not been found. There is no CT evidence to suggest the presence of Crohn's disease 2. Incidental note made of an enlarged fatty liver, benign Bosniak class I right renal cyst which needs no additional imaging or follow up, hysterectomy and mild grade 1 anterolisthesis of L4 upon L5. Assessment & Plan Assessment & Plan (1) Constipation: Code(s): K59.00 - Constipation, unspecified Category: Medical Qualifiers: Constipation type: drug induced constipation Qualified Code(s): K59.03 - Drug induced constipation (2) GERD (gastroesophageal reflux disease): Code(s): K21.9 - Gastro-esophageal reflux disease without esophagitis Qualifiers: Esophagitis presence: esophagitis presence not specified Qualified Code(s): K21.9 - Gastro-esophageal reflux disease without esophagitis (3) IBS (irritable bowel syndrome): Code(s): K58.9 - Irritable bowel syndrome without diarrhea Qualifiers: Irritable bowel syndrome type: with constipation Qualified Code(s): K58.1 - Irritable bowel syndrome with constipation (4) Transaminitis: Code(s): R74.01 - Elevation of levels of liver transaminase levels (5) Hepatomegaly: Code(s): R16.0 - Hepatomegaly, not elsewhere classified (6) Elevated C-reactive protein (CRP): Code(s): R79.82 - Elevated C-reactive protein (CRP) (7) Elevated ferritin level: Code(s): R79.89 - Other specified abnormal findings of blood chemistry (8) Weight gain with edema: Code(s): R63.5 - Abnormal weight gain; R60.9 - Edema, unspecified (9) Bilateral lower extremity edema: Code(s): R60.0 - Localized edema (10) Abdominal bloating: Code(s): R14.0 - Abdominal distension (gaseous) Plan Recheck liver enzymes today. Patient will start Motegrity daily and we will add Dulcolax at bedtime. Patient will take magnesium citrate when she gets home to have a bowel movement. Discussed with patient avoiding alcohol. I believe that patient is drinking alcohol, her levels of phosphatidylethanol was high 172 and 174 and the normal range is less than 20. Discussed with patient weight loss. Patient was encouraged to eat low-fat, low-salt, low carb, high-protein and high-fiber diet. More vegetables. Follow-up in the office in 2-3 months to discuss going for colonoscopy. Hopefully patient will have an appointment with Cardiology by then. Patient is agreeable to this plan of care and verbalizes understanding of instructions. She was given the opportunity to ask questions and all questions answered. Thank you for allowing me to participate in her care Orders: Orders Liver Panel Today R74.01 - Elevation of levels of liver transaminase levels Medications: New bisacodyl (Dulcolax (bisacodyl)) 10 mg (2 x 5 mg) PO BEDTIME 180 tabs 4RF prucalopride (Motegrity) 2 mg PO DAILY 30 tabs 2RF K59.04 - Chronic idiopathic constipation magnesium citrate (Citrate of Magnesia oral) 150 mL PO DAILY PRN 296 mL 2RF constipation K59.00 - Constipation, unspecified Discontinued sennosides (Senna Laxative) Discontinued Reason: Doctor's Order 17.2 mg (2 x 8.6 mg) PO BEDTIME PRN 180 tabs 2RF constipation linaclotide (Linzess) Discontinued Reason: Doctor's Order 290 mcg PO QAM 90 caps 4RF K59.00 - Constipation, unspecified Coding Level of Care Code Est Pt Level 4 (60547) Diagnoses Drug-induced constipation K59.03 Constipation type: drug induced constipation Gastroesophageal reflux disease, unspecified whether esophagitis present K21.9 Esophagitis presence: esophagitis presence not specified Irritable bowel syndrome with constipation K58.1 Irritable bowel syndrome type: with constipation Transaminitis R74.01 Hepatomegaly R16.0 Elevated C-reactive protein (CRP) R79.82 Elevated ferritin level R79.89 Weight gain with edema R63.5; R60.9 Bilateral lower extremity edema R60.0 Abdominal bloating R14.0 Time Spent (min) 35 Comment 20 minutes spent with patient and additional 15 minutes spent reviewing her records
== END 2023-10-30 12:23 | disposition home or self-care (01) ==
PROVIDERS: PCP Internal Medicine; Visit Provider Nurse Practitioner Family
DX: K59.03 Drug induced constipation (principal); K21.9 Gastro-esophageal reflux disease without esophagitis; K58.1 Irritable bowel syndrome with constipation; R74.01 Elevation of levels of liver transaminase levels; R16.0 Hepatomegaly, not elsewhere classified; R79.82 Elevated C-reactive protein (CRP); R79.89 Other specified abnormal findings of blood chemistry; R63.5 Abnormal weight gain; R60.9 Edema, unspecified; R60.0 Localized edema; R14.0 Abdominal distension (gaseous)
CPT/HCPCS: 99214

== ENCOUNTER → 2023-10-30 11:11 | Outpatient (BNVA) | payer OTHER, SELFPAY | PROVIDERS: PCP Internal Medicine; Visit Provider Nurse Practitioner Family | DX: K21.9 Gastro-esophageal reflux disease without esophagitis (principal); K59.03 Drug induced constipation; K58.1 Irritable bowel syndrome with constipation; R16.0 Hepatomegaly, not elsewhere classified; R74.01 Elevation of levels of liver transaminase levels; R79.82 Elevated C-reactive protein (CRP); R79.89 Other specified abnormal findings of blood chemistry; R63.5 Abnormal weight gain; R60.0 Localized edema; R14.0 Abdominal distension (gaseous); Z79.899 Other long term (current) drug therapy | CPT/HCPCS: 99212 ==

== ENCOUNTER 2024-02-12 12:24 | Outpatient (AMB) | payer OTHER, SELFPAY ==
[2024-02-12 12:49] VITALS: BP 100/60; BMI 38.3
--- NOTE | 2024-02-12 12:49 | MHC.OFFVIS ---
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 Use when sitting baclofen 20 mg (2 x 10 mg) PO BEDTIME 30 days bisacodyl (Dulcolax (bisacodyl)) 10 mg (2 x 5 mg) PO BEDTIME blood pressure monitor As directed cane As directed cane Single point cane. Use when walking [Cane tips As directed] carbidopa-levodopa 25-100 mg 1 tab PO 3-4 x's per day; 30 days cetirizine 10 mg PO DAILY docusate sodium 100 mg PO BEDTIME [Door alarm apply to bedroom and exit door at night] epinephrine 0.3 mg IM Q4H PRN etodolac 500 mg PO BID etodolac 200 mg PO Q8H PRN food supplemt, lactose-reduced (Ensure Active Light oral liquid) 1 ea PO DAILY [Laser alarm Laser alarm applied to head of bed, turn on nightly; ] lisinopril 40 mg PO DAILY magnesium citrate (Citrate of Magnesia oral) 150 mL PO DAILY PRN multivitamin with folic acid 400 mcg (Daily-Trinity (with folic acid)) tabs PO omeprazole 20 mg PO DAILY pregabalin 150 mg PO TID 30 days prucalopride (Motegrity) 2 mg PO DAILY simethicone (Gas Relief (simethicone)) 180 mg PO BID PRN trazodone 100 mg PO BEDTIME verapamil ER 120 mg PO QPM 30 days vitamin B complex (Vitamins B Complex capsule) 1 cap PO DAILY 90 days walker (Ultra-Light Rollator misc) Seated 4 wheeled walker with basket HPI Comments Details: Cecille has been referred for cardiac evaluation. It seems that there is a history of TIA type admission to [facility] few months back. However, MRI from that time showed no acute findings. Patient herself denies any clear-cut cardiac issues like coronary disease or myocardial infarction or cardiomyopathy. She is complaining mainly of pain issues everywhere. From the cardiac, she states that she has had recurring episodes of 'panic attacks', but not clear if she is actually having atrial arrhythmias rather. Today's EKG actually shows atrial flutter with rapid rate of 135/Min. Patient herself denies any such history in the past. No known coronary disease or myocardial infarction. [facility] Medical History Migraine PTSD (post-traumatic stress disorder) Neuropathy Hyperlipidemia Chronic back pain Asthma Anxiety disorder Parasomnia, unspecified Sleep disorder, unspecified Chronic migraine without aura Complex regional pain syndrome type II Surgical History Hx of colonoscopy H/O carpal tunnel repair H/O: hysterectomy Family History Mother Cancer Sister Hypertension Social History Household Members: None Alcohol intake: current Alcohol intake frequency: a few times a week Patient Tobacco Use Status: Current everyday Tobacco user Cigarettes Per Day: 5 Review of Systems Const Denies chills, Denies daytime sleepiness, Denies fatigue, Denies fever(s), Denies poor appetite, Denies snoring, Denies stops breathing during sleep, Denies weakness, Denies weight gain and Denies weight loss Eyes Denies loss of vision ENT Denies dizziness and Denies hearing loss Card Denies chest pain, Denies irregular heart rhythm, Denies claudication, Denies leg edema, Denies lightheadedness, Reports palpitations, Denies dyspnea on exertion and Denies orthopnea Resp Denies cough, Denies excessive phlegm production, Denies dyspnea on exertion, Denies snoring and Denies wheezing GI Denies abdominal pain, Denies hematochezia, Denies change in bowel habits, Denies nausea and Denies vomiting Denies urinary frequency and Denies dysuria Musc Denies arthralgias, Denies muscle weakness, Denies numbness and Denies other Skin/Breast Denies nail changes and Denies rash Neuro Denies Abnormal speech present, Denies dizziness, Denies loss of vision, Denies memory loss, Denies numbness and Denies weakness Psych Denies depression and Denies memory loss Endo Denies fatigue and Reports palpitations Carlos/Lymph Denies easy bruising Aller/Immun Denies wheezing Physical Exam Vital Signs: Last Vital Signs BP 100/60 02/12/24 12:49 BMI result Body Mass Index 38.3 Const General: comfortable and no acute distress Orientation/consciousness: patient oriented x3 HEENT Other: Unremarkable Head: Yes normal to inspection Neck Neck: Yes normal visual inspection Chest Chest palpation & inspection: normal inspection of the chest Resp Auscultation: clear to auscultation bilaterally Cardio Palpation: normal PMI Heart sounds: S1 normal heart sound present, S2 normal heart sound present, no gallops, no murmurs and no rubs GI Palpation (GI): Soft to palpation Back/Spine/Pelvis Other: unremarkable Skin General skin exam: no rashes or lesions noted Neuro General: patient oriented x3 Speech: No Abnormal speech present Extrem General: Yes normal to inspection Psych Mental Status: mental status grossly normal Office Procedures EKG Details: EKG today shows atrial flutter with rapid rate at 135/Min; rightward axis; no clear ischemic findings. [id number], Complete Assessment & Plan Assessment & Plan (1) Atrial flutter with rapid ventricular response: Code(s): I48.92 - Unspecified atrial flutter Category: Medical Plan Today's EKG shows atrial flutter with rapid rate at 135/Min. A prior EKG from 12/2023 shows sinus rhythm. Echocardiogram with LVEF of 55-60%. No significant valve findings and otherwise unremarkable. Holter monitor from August shows underlying sinus rhythm with an average rate of 90/Min. Rare supraventricular/ventricular ectopy. Overall, patient might be having recurring atrial arrhythmias that she might be perceiving as panic attacks, but not entirely clear. We discussed about further plan today. He seems to be already on a good dose of verapamil that she might be taking for neurological issues, but patient is not clear. We might need to add beta-blockers but she is also listed to be on EpiPen p.r.n.. Hence may have issues with [facility] beta hina use. Hence recommend ER evaluation where she can get some intravenous medications for rate control. Recommend anticoagulation. Routine labs. Further plan pending patient course in the emergency room. Message sent by Drippler to ER physician . Coding Level of Care Code New Pt Level 4 (49974) Diagnoses Atrial flutter with rapid ventricular response I48.92 CPT Codes EKG - CPT: 31060-[id number], Complete ([id number])
== END 2024-02-12 13:22 | disposition home or self-care (01) ==
PROVIDERS: PCP Internal Medicine; Visit Provider Internal Medicine
DX: I48.92 Unspecified atrial flutter (principal)
CPT/HCPCS: 93010; 99215

== ENCOUNTER → 2024-02-12 12:24 | Outpatient (BNVA) | payer OTHER, SELFPAY | PROVIDERS: PCP Internal Medicine; Visit Provider Internal Medicine | DX: I48.92 Unspecified atrial flutter (principal); R94.31 Abnormal electrocardiogram [ECG] [EKG]; I44.39 Other atrioventricular block | CPT/HCPCS: 93005; 99212 ==

== ENCOUNTER 2024-02-12 13:26 | Inpatient (IN) | payer OTHER, SELFPAY ==
[2024-02-12] VITALS (13 sets, daily range): BP systolic 105–132; BP diastolic 44–91; PULSE 75–139; RESP 16–22; TEMP 36.6–36.8; O2SAT 93–100; BMI 38.7
--- NOTE | 2024-02-12 13:28 | ECG_ITS ---
Test Reason : ABNORMAL EKG Blood Pressure : / mmHG Vent. Rate : 125 BPM Atrial Rate : 308 BPM P-R Int : 000 ms QRS Dur : 094 ms QT Int : 284 ms P-R-T Axes : 000 033 013 degrees QTc Int : 409 ms Atrial flutter with variable A-V block Low voltage QRS Abnormal ECG No previous ECGs available Referred By: Generic ED Physician Electronically Signed By:EVITA SUTTON
--- NOTE | 2024-02-12 13:49 | ED.GENADULT ---
HPI - General Adult General Chief complaint: Arrhythmia/Palpitations Stated complaint: Abnormal EKG from cardiology Time Seen by Provider: 02/12/24 14:00 Source: patient Mode of arrival: ambulatory Limitations: no limitations History of Present Illness ED Provider: Dr. Jessie Triplett HPI narrative: Patient comes to the emergency room from the utilization review coordinator we had. Today, patient had a routine appointment. Patient was recently diagnosed with a TIA. When patient checked in, an EKG was done at it showed atrial flutter with RVR. Patient was sent to the emergency room for further evaluation. Patient states that she has history of Parkinson's and has severe anxiety and PTSD and she is currently having palpitations and the and feeling anxious, and can not tell if she has been having palpitations from the anxiety or from AFib/a flutter. To her knowledge, this is a new diagnosis for her. Related Data Home Medications ?Medication ?Instructions ?Recorded ?Confirmed alprazolam 2 mg tablet 2 mg PO BEDTIME 02/15/21 02/12/24 epinephrine 0.3 mg/0.3 mL 0.3 mg IM Q4H PRN Anaphylaxis 02/15/21 02/12/24 injection, auto-injector etodolac 500 mg tablet 500 mg PO BID PRN Migraines 02/15/21 02/12/24 trazodone 100 mg tablet 100 mg PO BEDTIME 02/15/21 02/12/24 albuterol sulfate 90 mcg/actuation 1 inh inhalation QID PRN Shortness 02/10/22 02/12/24 aerosol inhaler (Ventolin HFA) Of Breath Or Wheezing cetirizine 10 mg tablet 10 mg PO DAILY PRN allergies 02/10/22 02/12/24 atorvastatin 20 mg tablet 20 mg PO DAILY 05/16/23 02/12/24 multivitamin with folic acid 400 1 tab PO DAILY 10/30/23 02/12/24 mcg tablet (Daily-Trinity (with folic acid)) carbidopa 25 mg-levodopa 100 mg 1 tab PO BEDTIME 02/12/24 02/12/24 tablet lisinopril 20 mg tablet 20 mg PO DAILY 02/12/24 02/12/24 omeprazole 20 mg capsule,delayed 20 mg PO DAILY@0630 02/12/24 02/12/24 release pregabalin 150 mg capsule 150 mg PO BID 02/12/24 02/12/24 verapamil 120 mg tablet,extended 120 mg PO BEDTIME 02/12/24 02/12/24 release Previous Rx's ?Medication ?Instructions ?Recorded Door alarm #2 ea 02/15/21 Laser alarm #1 ea 02/15/21 vitamin B complex (Vitamins B 1 cap PO DAILY 90 days #90 caps 07/14/21 Complex capsule) blood pressure monitor #1 ea 08/16/22 cane #1 ea 08/16/22 Cane tips #1 ea 03/06/23 back brace #1 ea 03/06/23 cane #1 ea 03/06/23 walker (Ultra-Light Rollator misc) #1 ea 03/06/23 simethicone 180 mg capsule (Gas 180 mg PO BID PRN abdominal 03/07/23 Relief (simethicone)) distention #180 caps bisacodyl 5 mg tablet,delayed 10 mg (2 x 5 mg) PO BEDTIME #180 10/30/23 release (Dulcolax (bisacodyl)) tabs magnesium citrate (Citrate of 150 ml PO DAILY PRN constipation 10/30/23 Magnesia oral) #296 mL prucalopride 2 mg tablet 2 mg PO DAILY #30 tabs 10/30/23 (Motegrity) docusate sodium 100 mg capsule 100 mg PO BEDTIME #90 caps 01/22/24 amitriptyline 25 mg tablet 75 mg (3 x 25 mg) PO BEDTIME 30 01/30/24 days #90 tabs baclofen 10 mg tablet 20 mg (2 x 10 mg) PO BEDTIME 30 01/30/24 days #60 tabs Allergies Allergy/AdvReac Type Severity Reaction Status Date / Time bee venom protein (honey bee) Allergy Severe Anaphylaxis Verified 02/12/24 13:46 Penicillins Allergy Severe Unknown Verified 02/12/24 13:46 Review of Systems Review of Systems: Constitutional : No Weight loss, No Fever, No Chills, No Night Sweats, No Fatigue, No Malaise ENT/Mouth : No Hearing loss, No Ear Pain, No Nasal Congestion, No Sinus Pain, No Hoarseness, No sore throat, No Rhinorrhea, No Swallowing Difficulty Eyes: No Eye Pain, No Swelling, No Redness, No Foreign Body, No Discharge, No Vision Changes Cardiovascular : No Chest Pain, No SOB, No Dyspnea on Exertion, No Orthopnea, No Edema, Complaining of chronic Respiratory : No Cough, No Sputum, No Wheezing, No Smoke Exposure, No Dyspnea Gastrointestinal : No Nausea, No Vomiting, No Diarrhea, No Constipation, No abdominal Pain, No Hematochezia, No Melena Genitourinary : no irregular bleeding, No Dysuria, No Urinary Frequency, No Hematuria, No Urinary Incontinence, No Urgency, No Flank Pain, No Urinary Flow Changes, No Hesitancy Musculoskeletal : No joint pain, No Myalgias, No Joint Swelling Skin : No Skin Lesions, No rash Neuro : No Weakness, No Numbness, No Paresthesias, No Loss of Consciousness, No Dizziness, No Headache, complaining of chronic tremors Psych : patient complaining of chronic anxiety No Depression, No SI/HI/AH/VH, No Social Issues, Heme/Lymph: No Bruising, No Bleeding,No Lymphadenopathy Endocrine : No Polyuria, No Polydipsia, No Temperature Intolerance PMFSH Past Medical History Medical History Migraine PTSD (post-traumatic stress disorder) Neuropathy Hyperlipidemia Chronic back pain Asthma Anxiety disorder Parasomnia, unspecified Sleep disorder, unspecified Chronic migraine without aura Complex regional pain syndrome type II Surgical History Hx of colonoscopy H/O carpal tunnel repair H/O: hysterectomy Family History Family History Mother Cancer Sister Hypertension Social History Social History Household Members: None Housing: Apartment Do you presently have visiting nurse or 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 home services: 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) Alcohol intake: current Alcohol intake frequency: a few times a week Patient Tobacco Use Status: Current everyday Tobacco user Cigarettes Per Day: 5 Smoked in Last 30 Days: Yes Patient Interested in Nicotine Replacement: Yes Use of substances other than those prescribed or required for medical reasons: No Do you feel safe in your current relationship?: No Current Relationship Is there a partner from a previous relationship who is making you feel unsafe now?: No Are you made to feel afraid or neglected: No Advance Directives: No Advance Directives Information Provided: Yes Do you have a plan to hurt others: No Plan Recently lost weight without trying: No Eating poorly because of decreased appetite: No Nutrition Risks: No Nutritional Risk Patient : No : No Poor oral hygiene: No Physical Exam ED Vital Signs: Vital Signs - 24 hr 02/12/24 13:41 02/12/24 14:10 02/12/24 14:14 Temperature 98 F Pulse Rate 139 H 130 H 132 H Respiratory Rate 20 20 Blood Pressure 131/79 105/71 109/73 Pulse Oximetry 100 97 Oxygen Delivery Method Room Air Room Air 02/12/24 14:47 02/12/24 15:17 02/12/24 15:35 Temperature 98 F Pulse Rate 120 H 128 H 118 H Respiratory Rate 18 22 H 22 H Blood Pressure 105/68 114/80 Pulse Oximetry 96 96 Oxygen Delivery Method Room Air Room Air 02/12/24 16:17 02/12/24 17:12 Temperature 98.2 F Pulse Rate 102 H 122 H Respiratory Rate 16 Blood Pressure 132/91 H 118/68 Pulse Oximetry 93 Oxygen Delivery Method Room Air BMI result Body Mass Index 38.7 Const Other: Appearance: Alert. Oriented X3. No acute distress. Eyes: Pupils equal, round and reactive to light. ENT: Pharynx normal. Neck: Normal inspection. Neck supple. No lymph nodes noted. No crepitus CVS: heart rate irregularly irregular between 130 and 150, Pulses normal. Normal S1 and S2 Respiratory: No respiratory distress. Breath sounds normal. No Wheezing. No rales Abdomen: Soft and nontender. No rigidity. No distention. Skin: Skin warm and dry. Normal skin color. Normal skin turgor. Extremities: No lower extremity edema. No Lacerations. No Rash Neuro: Oriented X 3. No motor deficit. No sensory deficit. Moving all extremities. No slurred speech. CN 2 through 12 grossly intact, patient has resting tremors in hands Psych: calm, cooperative, normal affect Course Course Course Narrative: RME: 63-year-old female presents to ED for heart racing patient found to be atrial flutter at the cardiology office heart rate 139. Patient states symptoms been occurred for a while. Labs EKG ordered. Patient states brought to ED immediately. Medications Administered Generic Name Dose Route Start Last Admin Trade Name Freq PRN Reason Stop Dose Admin Alprazolam 2 mg 02/12/24 21:00 02/12/24 20:49 Alprazolam 0.5 Mg Tablet PO 2 mg BEDTIME KAVITA Administration Amitriptyline HCl 75 mg 02/12/24 21:00 02/12/24 20:49 Amitriptyline Hcl 25 Mg Tablet PO 75 mg BEDTIME KAVITA Administration Apixaban 5 mg 02/13/24 09:00 02/13/24 08:45 Apixaban 5 Mg Tablet PO 5 mg BID KAVITA Administration Atorvastatin Calcium 20 mg 02/13/24 09:00 02/13/24 08:45 Atorvastatin Calcium 20 Mg Tablet PO 20 mg DAILY KAVITA Administration Baclofen 20 mg 02/12/24 21:00 02/12/24 20:49 Baclofen 20 Mg Tablet PO 20 mg BEDTIME KAVITA Administration Bisacodyl 10 mg 02/12/24 21:00 02/12/24 20:49 Bisacodyl 5 Mg Tablet. PO 10 mg BEDTIME KAVITA Administration Carbidopa/Levodopa 1 tab 02/12/24 21:00 02/12/24 20:49 Carbidopa/Levodopa 25/100 Tablet PO 1 tab BEDTIME KAVITA Administration Docusate Sodium 100 mg 02/12/24 21:00 02/12/24 20:50 Docusate Sodium 100 Mg Capsule PO 100 mg BEDTIME KAVITA Administration Diltiazem HCl 125 mg/ Sodium 125 mls @ 0 mls/hr 02/12/24 17:00 02/12/24 23:21 Chloride IVCONT 0 mg/hr .Q0M KAVITA 0 mls/hr Titration Protocol Per Protocol Metoprolol Tartrate 25 mg 02/13/24 09:00 02/13/24 08:45 Metoprolol Tartrate 25 Mg Tablet PO 25 mg BID KAVITA Administration Protocol Multivitamins/Vitamin C 1 tab 02/13/24 09:00 02/13/24 08:45 Multivitamin Tablet PO 1 tab DAILY KAVITA Administration Omeprazole 20 mg 02/13/24 06:30 02/13/24 06:44 Omeprazole 20 Mg Capsule. PO 20 mg DAILY@0630 KAVITA Administration Oxycodone HCl 5 mg 02/12/24 22:31 02/12/24 23:22 Oxycodone Hcl Immed Release 5 Mg Tablet PO 5 mg Q6H PRN Administration Pain, Severe (Pain Scale 7-10) Pregabalin 150 mg 02/12/24 21:00 02/13/24 08:45 Pregabalin 150 Mg Capsule PO 150 mg BID KAVITA Administration Sodium Chloride 3 ml 02/13/24 00:00 02/13/24 08:46 0.9 % Sodium Chloride Flush 3 Ml Syringe IVFLUSH 3 ml QSHIFT KAVITA Administration Trazodone HCl 100 mg 02/12/24 21:00 02/12/24 20:50 Trazodone Hcl 100 Mg Tablet PO 100 mg BEDTIME KAVITA Administration Discontinued Medications Generic Name Dose Route Start Last Admin Trade Name Michaelle PRN Reason Stop Dose Admin Apixaban 5 mg 02/12/24 15:07 02/12/24 15:16 Apixaban 5 Mg Tablet PO 02/12/24 15:08 5 mg ONCE ONE Administration Diltiazem HCl 10 mg 02/12/24 14:07 02/12/24 14:14 Diltiazem Hcl 50 Mg/10 Ml Vial IVPUSH 02/12/24 14:08 10 mg STAT STA Administration Influenza Virus Vaccine 0.5 ml 02/12/24 18:11 02/12/24 18:41 Flu Vacc [id number](6mos Up)/Pf 0.5 Ml Syringe IM 02/12/24 18:12 Not Given .ONCE ONE Metoprolol Tartrate 2.5 mg 02/12/24 14:47 02/12/24 14:53 Metoprolol Tartrate 5 Mg/5 Ml Vial IVPUSH 02/12/24 14:48 2.5 mg ONCE ONE Administration Protocol Metoprolol Tartrate 25 mg 02/12/24 21:00 02/12/24 20:49 Metoprolol Tartrate 25 Mg Tablet PO 25 mg BID KAVITA Administration Protocol Medical Decision Making Medical Decision Making MDM Narrative: my interpretation of EKG: Atrial flutter with RVR, heart rate 125, no ST segment depression or elevation, no T-wave inversion, QTC 409 on arrival to the ED, patient's EKG shows atrial flutter, heart rate 125. Patient's blood pressure 131/79, heart rate 139. Patient was given 1 dose of diltiazem 10 mg push heart rate improved to the 110s, blood pressure a bit softer 109/73. patient is still tachycardic, to avoid and if significant drop in blood pressure, this time we will do a small dose of metoprolol 2.5 mg patient's CHADS2 Vasc score is 4. Patient is a candidate for blood thinners. initially, patient's heart rate was in the low 100s, however shortly after he went up to 140s again a flutter. No chest pain or shortness of breath. Patient was started on Cardizem drip. I discussed the patient with Dr. Lawrence, also discussed with the patient that she will need blood thinners. Patient was made aware of all the risks versus benefits. Patient decided to go ahead and Started blood thinners. Per Dr. Lawrence's recommendation we will start Eliquis patient is now on a Cardizem drip. I discussed the patient with Dr. Pepe, pt being admitted, patient agrees with plan Differential Diagnosis Differential Diagnoses: The differential diagnosis associated with the presentation includes ( atrial fibrillation, atrial flutter) Admission/Observation Consideration of admission/observation: Escalation of care including admission/observation considered Consult Healthcare Provider Management of the patient was discussed with: Hospitalist and School Laboratory Technician Lab Data MDM Lab Attestation statement: I reviewed the patient's lab results. 02/13/24 04:10 02/13/24 04:10 Labs: Lab Results 02/12/24 Range/Units 14:10 WBC 8.4 (4.8-10.8) X10*3/uL RBC 4.53 (4.20-5.50) X10*6/uL Hgb 15.0 (12.0-16.0) g/dl Hct 44.6 (37.0-47.0) % MCV 98.5 H (80.0-98.0) fL MCH 33.1 H (27.0-33.0) pg MCHC 33.6 (31.0-35.0) g/dl RDW 14.8 (11.0-16.0) % Plt Count 188 (160-400) X10*3/uL MPV 13.7 H (9.4-12.3) fL Immature Gran % (Auto) 0.5 H (0.0-0.4) % Neut % (Auto) 51.4 (45-73) % Lymph % (Auto) 37.4 (20-40) % [place] % (Auto) 8.9 (2-11) % Eos % (Auto) 1.0 (0-4) % Baso % (Auto) 0.8 (0-2) % Lymph # (Auto) 3.1 (1.2-4.9) X10*3/uL [place] # (Auto) 0.8 (0.1-1.2) X10*3/uL Eos # (Auto) 0.1 (0.0-0.4) X10*3/uL Baso # (Auto) 0.1 (0.0-0.2) X10*3/uL Abs Immat Gran (auto) 0.04 H (0.00-0.03) X10*3/uL Absolute Neuts (auto) 4.3 (2.0-8.3) x10*3/uL Absolute Nucleated RBC 0.000 (0.0-0.012) X10*3/uL Nucleated RBC % (auto) 0.0 (0.0-0.2) /100WBC PT 11.2 (10.9-12.4) SEC INR 1.0 (0.9-1.1) APTT 32.8 (26.0-36.8) SEC Sodium 140 (135-145) mmol/L Potassium 4.1 (3.3-5.1) mmol/L Chloride 111 H (96-108) mmol/L Carbon Dioxide 24 (22-29) mmol/L Anion Gap 9 L (12-20) BUN 10 (9-16) mg/dL Creatinine 0.75 (0.5-1.4) mg/dL Estim Creat Clear Calc 97.1 Estimated GFR > 60 Random Glucose 111 (60-115) mg/dL Calcium 9.6 (8.4-10.2) mg/dL Total Bilirubin 0.4 (0.0-1.0) mg/dL AST 74 H (5-31) U/L ALT 79 H (0-31) U/L Alkaline Phosphatase 114 (39-117) U/L Troponin I High Sens 4.2 (<3.5-17.0) ng/L Total Protein 7.4 (6.5-8.0) g/dL Albumin 3.7 (3.5-5.0) g/dL TSH 0.25 L (0.32-4.0) uIU/mL Free T4 0.99 (0.71-1.85) ng/dL Independent Interpretation I performed an independent interpretation of an: EKG and CT Scan Critical Care Time Critical Care Time Critical Care Time: Yes Total Critical Care Time: 60 Attestation: I have personally provided critical care time. Time includes review of lab data, radiology results, discussion with consultants, and monitoring for potential decompensation. Intervention performed as documented. Discharge Plan Discharge Clinical Impression: New onset atrial flutter Patient Disposition: Admitted As Inpatient
[2024-02-12] MEDS: dilTIAZem HCL 50 MG/10 ML VIAL 10 MG IVPUSH (14:14)
[2024-02-12 14:23] LABS: Prothrombin Time 11.2 SEC (10.9-12.4)
[2024-02-12 14:24] LABS: Basophils Absolute Auto 0.1 X10*3/uL (0.0-0.2); Basophils Percent Auto 0.8 % (0-2); Eosinophils Absolute Auto 0.1 X10*3/uL (0.0-0.4); Hematocrit 44.6 % (37.0-47.0); Imm Gran Abs Auto 0.04 X10*3/uL (0.00-0.03); Imm Gran Pct Auto 0.5 % (0.0-0.4); Lymphocytes Absolute Auto 3.1 X10*3/uL (1.2-4.9); Lymphocytes Percent Auto 37.4 % (20-40); Mean Corpuscular HGB Conc 33.6 g/dl (31.0-35.0); Mean Corpuscular Hemoglobin 33.1 pg (27.0-33.0); Mean Corpuscular Volume 98.5 fL (80.0-98.0); Mean Platelet Volume 13.7 fL (9.4-12.3); Monocytes Absolute Auto 0.8 X10*3/uL (0.1-1.2); Monocytes Percent Auto 8.9 % (2-11); Neutrophils Absolute Auto 4.3 x10*3/uL (2.0-8.3); Neutrophils Percent Auto 51.4 % (45-73); Platelet Count 188 X10*3/uL (160-400); Red Blood Count 4.53 X10*6/uL (4.20-5.50); Red Cell Distribution Width 14.8 % (11.0-16.0); White Blood Count 8.4 X10*3/uL (4.8-10.8)
[2024-02-12 14:26] LABS: Partial Thromboplastin Time 32.8 SEC (26.0-36.8)
[2024-02-12 14:44] LABS: Troponin-I High Sensitivity 4.2 ng/L (<3.5-17.0)
[2024-02-12 14:52] LABS: Alanine Aminotransferase 79 U/L (0-31); Albumin Level 3.7 g/dL (3.5-5.0); Alkaline Phosphatase 114 U/L (39-117); Anion Gap 9 (12-20); Aspartate Amino Transferase 74 U/L (5-31); Bilirubin Total 0.4 mg/dL (0.0-1.0); Blood Urea Nitrogen 10 mg/dL (9-16); Calcium 9.6 mg/dL (8.4-10.2); Carbon Dioxide 24 mmol/L (22-29); Chloride 111 mmol/L (96-108); Creatinine Clr Calc Pharmacy 97.1; Estimated Glomerular Filt Rate > 60; Glucose Random 111 mg/dL (60-115); Potassium 4.1 mmol/L (3.3-5.1); Sodium 140 mmol/L (135-145); Total Protein 7.4 g/dL (6.5-8.0)
[2024-02-12] MEDS: Metoprolol Tartrate 5 MG/5 ML VIAL 2.5 MG IVPUSH (14:53)
[2024-02-12 15:03] LABS: TSH reflex Free T4 0.25 uIU/mL (0.32-4.0)
[2024-02-12] MEDS: Apixaban 5 MG TABLET PO (15:16)
[2024-02-12 16:20] LABS: Free T4 (Free Thyroxine) 0.99 ng/dL (0.71-1.85)
[2024-02-12] MEDS: dilTIAZem HCL 125 MG in 0.9 % Sodium Chloride 100 ML 10 MG IVCONT (17:12)
--- NOTE | 2024-02-12 17:39 | P.HPHOSP_ITS ---
History of Present Illness Date of Service: 02/12/24 Chief Complaint: afutter 63F PMH morbid obesity, mood disorder, PTSD, chronic pain, ?TIA 04/2023 without residual deficits, presented with atrial flutter. Patient had been in outpatient Cardiology. EKG showed atrial flutter with rapid ventricular response of 135. Patient is unaware of any history in the past has no known coronary artery disease has no known history of AFib. Patient denies any change in symptoms. 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) Alcohol intake: current Alcohol intake frequency: a few times a week Patient Tobacco Use Status: Current everyday Tobacco user Cigarettes Per Day: 5 Smoked in Last 30 Days: Yes Patient Interested in Nicotine Replacement: Yes Use of substances other than those prescribed or required for medical reasons: No Do you feel safe in your current relationship?: No Current Relationship Is there a partner from a previous relationship who is making you feel unsafe now?: No Are you made to feel afraid or neglected: No Advance Directives: No Advance Directives Information Provided: Yes Do you have a plan to hurt others: No Plan Recently lost weight without trying: No Eating poorly because of decreased appetite: No Nutrition Risks: No Nutritional Risk Patient : No : No Poor oral hygiene: No Meds Allergies Allergy/AdvReac Type Severity Reaction Status Date / Time bee venom protein (honey bee) Allergy Severe Anaphylaxis Verified 02/12/24 13:46 Penicillins Allergy Severe Unknown Verified 02/12/24 13:46 Active Medications: Current Medications Diltiazem HCl 125 mg/ Sodium (Chloride) 125 mls @ 0 mls/hr IVCONT .Q0M [facility]; Protocol Last Admin: 02/12/24 17:12 Dose: 10 mg/hr, 10 mls/hr Home Medications ?Medication ?Instructions ?Recorded ?Confirmed ?Last Taken ?Type alprazolam 2 mg tablet 2 mg PO BEDTIME 02/15/21 02/12/24 02/12/24 History epinephrine 0.3 mg/0.3 mL 0.3 mg IM Q4H PRN Anaphylaxis 02/15/21 02/12/24 Unknown History injection, auto-injector etodolac 500 mg tablet 500 mg PO BID PRN Migraines 02/15/21 02/12/24 Unknown History trazodone 100 mg tablet 100 mg PO BEDTIME 02/15/21 02/12/24 02/11/24 History albuterol sulfate 90 mcg/actuation 1 inh inhalation QID PRN Shortness 02/10/22 02/12/24 Unknown History aerosol inhaler (Ventolin HFA) Of Breath Or Wheezing cetirizine 10 mg tablet 10 mg PO DAILY PRN allergies 02/10/22 02/12/24 02/12/24 History atorvastatin 20 mg tablet 20 mg PO DAILY 05/16/23 02/12/24 02/12/24 History multivitamin with folic acid 400 1 tab PO DAILY 10/30/23 02/12/24 02/12/24 History mcg tablet (Daily-Trinity (with folic acid)) carbidopa 25 mg-levodopa 100 mg 1 tab PO BEDTIME 02/12/24 02/12/24 02/11/24 History tablet lisinopril 20 mg tablet 20 mg PO DAILY 02/12/24 02/12/24 02/12/24 History omeprazole 20 mg capsule,delayed 20 mg PO DAILY@0630 02/12/24 02/12/24 02/12/24 History release pregabalin 150 mg capsule 150 mg PO BID 02/12/24 02/12/24 02/12/24 History verapamil 120 mg tablet,extended 120 mg PO BEDTIME 02/12/24 02/12/24 02/12/24 History release Physical Exam 2 Vital Signs and Narrative: Vital Signs: Last Vital Signs Temp 98.2 F 02/12/24 16:17 Pulse 122 H 02/12/24 17:12 Resp 16 02/12/24 16:17 BP 118/68 02/12/24 17:12 Pulse Ox 93 02/12/24 16:17 O2 Del Method Room Air 02/12/24 16:17 BMI result Body Mass Index 38.7 General: AO X 3, no acute distress Resp: CTA bilateral, no accessory muscles used CVS: S1,S2,Rapid irregular GI: soft, non tender, non distended Neuro: motor grossly intact, alert Psych: appropriate affect, appropriate insight Results Labs 02/12/24 14:10 02/12/24 14:10 Labs: Laboratory Results - last 24 hr 02/12/24 14:10 MCV 98.5 H MCH 33.1 H MCHC 33.6 RDW 14.8 Plt Count 188 MPV 13.7 H Immature Gran % (Auto) 0.5 H Neut % (Auto) 51.4 Lymph % (Auto) 37.4 [place] % (Auto) 8.9 Eos % (Auto) 1.0 Baso % (Auto) 0.8 Lymph # (Auto) 3.1 [place] # (Auto) 0.8 Eos # (Auto) 0.1 Baso # (Auto) 0.1 Abs Immat Gran (auto) 0.04 H Absolute Neuts (auto) 4.3 Absolute Nucleated RBC 0.000 Nucleated RBC % (auto) 0.0 PT 11.2 INR 1.0 APTT 32.8 Anion Gap 9 L Estim Creat Clear Calc 97.1 Estimated GFR > 60 Random Glucose 111 Calcium 9.6 Total Bilirubin 0.4 AST 74 H ALT 79 H Alkaline Phosphatase 114 Troponin I High Sens 4.2 Total Protein 7.4 Albumin 3.7 TSH 0.25 L Free T4 0.99 Assessment and Plan (1) Atrial flutter with rapid ventricular response: Status: Acute Plan 63F PMH morbid obesity, mood disorder, PTSD, chronic pain, ?TIA 04/2023 without residual deficits, presented with atrial flutter ? New onset atrial flutter with rapid ventricular response Diltiazem drip, start Lopressor, Eliquis, echo, cardio eval Morbid obesity Weight loss recommended DVT prophylaxis on Eliquis Full Code Patient with a flutter with rapid ventricular response requiring IV infusion of diltiazem therefore expected require at least 2 midnights inpatient Quality Stroke Does the patient have a stroke diagnosis?: No VTE Prior VTE?: No VTE Risk Level:: Medical - moderate - high VTE Device Contraindication: Treatment Not Indicated VTE Drug Contraindication: N/A - Med Ordered
--- NOTE | 2024-02-12 18:18 | PC.NURSE ---
Late entry: cardizem drip started per APR, HR and BP monitored. Pt alert and oriented, breathing even and unlabored, skin warm and dry. Pt denies CP. Has chronic back pain.
--- NOTE | 2024-02-12 19:20 | PHA.MEDREC ---
Addendum entered by Leydi Mcfarland RPh 02/12/24 19:41: reviewed by [facility]. Original Note: Pharmacy Consult ? Medication Reconciliation Pharmacy has completed the medication reconciliation. Spoke with patient and she was a little aloof when answering my questions and kept going off track about other medical necessities, but she was able to confirm her medications. She confirmed she is taking does not like taking a lot of her medications and isn't compliant with how she is suppose to take them. She confirmed she is taking her Amitriptyline 25mg tabs once at bedtime and not TID like it was prescribed. She also states she takes her Carbidopa-Levodopa at bedtime and doesn't remember the original directions for that. She also confirmed she was taking Lisinopril 40mg tabs a while ago then her Dr switched her to a lisinopril-hydrochlorothiazide combo med for the last few months to see how she would do taking that medication and then recently the Dr changed her back to Lisionpril 20mg tabs once daily that she has been taking. She confirmed she is taking Pregabalin 150mg tabs twice daily instead of three times a day and states its easier for her to do twice daily because she forgets to take the afternoon dose of it. She confirmed she took all her morning medications this morning and everything else yesterday.
[2024-02-12] MEDS: Amitriptyline HCl 25 MG TABLET 75 MG PO (20:49)
[2024-02-12] MEDS: bisacodyL 5 MG TABLET.DR 10 MG PO (20:49)
[2024-02-12] MEDS: ALPRAZolam 0.5 MG TABLET 2 MG PO (20:49)
[2024-02-12] MEDS: Baclofen 20 MG TABLET PO (20:49)
[2024-02-12] MEDS: Metoprolol Tartrate 25 MG TABLET PO (20:49)
[2024-02-12] MEDS: Carbidopa/Levodopa 25/100 TABLET 1 TAB PO (20:49)
[2024-02-12] MEDS: Docusate Sodium 100 MG CAPSULE PO (20:50)
[2024-02-12] MEDS: Pregabalin 150 MG CAPSULE PO (20:50)
[2024-02-12] MEDS: traZODone HCL 100 MG TABLET PO (20:50)
--- NOTE | 2024-02-12 21:11 | PC.NURSE ---
late entry assumed care of pt 1914. diltiazem drip infusing per mar HR ranging 90s-110s at this time with episodes of hitting 120s. pt denies cp/sob, resting comfortably. helped to be boosted up in bed and given dinner tray, pt ate approx 75% of dinner. pt medicated per apr with pm meds. hospital bed requested for pt comfort. call carbone within reach.
--- NOTE | 2024-02-12 23:21 | PC.NURSE ---
DILTIAZEM PAUSED PER MAR HR SUSTAINING 70S-80S BEATS/MIN ON MONITOR.
[2024-02-12] MEDS: oxyCODONE HCl Immed Release 5 MG TABLET PO (23:22)
[2024-02-12] MEDS: 0.9 % Sodium Chloride Flush 3 ML SYRINGE IVFLUSH (23:23)
[2024-02-13] VITALS (9 sets, daily range): BP systolic 111–131; BP diastolic 60–87; PULSE 75–118; RESP 15–24; TEMP 36.4–36.9; O2SAT 93–98
[2024-02-13 04:57] LABS: Hematocrit 43.5 % (37.0-47.0); Hemoglobin 14.6 g/dl (12.0-16.0); Mean Corpuscular HGB Conc 33.6 g/dl (31.0-35.0); Mean Corpuscular Hemoglobin 33.3 pg (27.0-33.0); Mean Corpuscular Volume 99.1 fL (80.0-98.0); Mean Platelet Volume 13.4 fL (9.4-12.3); Platelet Count 173 X10*3/uL (160-400); Red Blood Count 4.39 X10*6/uL (4.20-5.50); White Blood Count 6.4 X10*3/uL (4.8-10.8)
[2024-02-13 05:17] LABS: Anion Gap 11 (12-20); Blood Urea Nitrogen 13 mg/dL (9-16); Calcium 9.5 mg/dL (8.4-10.2); Carbon Dioxide 24 mmol/L (22-29); Chloride 110 mmol/L (96-108); Creatinine Clr Calc Pharmacy 86.7; Estimated Glomerular Filt Rate > 60; Glucose Random 131 mg/dL (60-115); Magnesium 2.1 mg/dL (1.6-2.6); Potassium 4.1 mmol/L (3.3-5.1); Sodium 141 mmol/L (135-145)
[2024-02-13] MEDS: Omeprazole 20 MG CAPSULE.DR PO (06:44)
--- NOTE | 2024-02-13 07:00 | CA_ITS ---
Transthoracic Echocardiogram Patient (Last, First, Middle): Cecille Edwards, Gender: Female Date of : 1960 Age: 63 Procedure Date: 02/13/2024 Procedure Type: Transthoracic Echocardiogram Location: ER Height: 167.64 cm Weight: 108.86 kg BSA: 2.16 m2 Heart Rate: bpm BP: 129 / 85 mmHg Taxation Consultant: Referring MD: Stevan Pepe MD Symptoms: afib Study Quality: Adequate with contrast ECG Rhythm: Atrial flutter Conclusions: - The left ventricular systolic function is normal. The visually estimated ejection fraction is between 55-60%. - No obvious valvular pathology seen on this study. Findings Procedure Information Contrast agent, definity, is being given per protocol without apparent complications. Left Ventricle Normal left ventricular cavity size. There is mildly increased left ventricular wall thickness. The left ventricular systolic function is normal. The visually estimated ejection fraction is between 55-60%. There is no evidence of regional wall motion abnormalities. Diastolic function is indeterminate on the basis of available data. Right Ventricle Normal right ventricular cavity size and systolic function. Atria The left atrium is mildly dilated. The right atrium is normal in size. Aortic Valve The aortic valve was not well visualized. There is no aortic valve stenosis. There is no aortic valve regurgitation. Mitral Valve The mitral valve appears normal. There is no mitral valve regurgitation. There is no mitral valve stenosis. Pulmonic Valve The pulmonic valve is likely normal. Tricuspid Valve There is no tricuspid valve regurgitation. Tricuspid regurgitation envelope is inadequate for calculation of right ventricular systolic pressure. Great Vessels The asc aorta is normal in size. Venous The inferior vena cava is dilated and collapses greater than 50% with inspiration. Pericardium/Pleural There is no evidence of pericardial effusion. Recommendations, Care & Conclusions No obvious valvular pathology seen on this study. Measurements 2D Linear Measurements IVSd: 1.33 0.6-0.9/0.6-1.0 cm LVIDd: 4.60 3.9-5.3/4.2-5.9 cm LVIDd Index: 2.13 2.4-3.2/2.2-3.1 cm/m2 LVIDs: 2.89 2.0-3.6 cm LVPWd: 1.37 0.7-1.1 cm Ao Root: 2.80 2.1-3.5 cm LA Diam: 4.40 2.7-3.8/3.0-4.0 cm LAIDs Index: 2.04 1.5-2.3 cm/m2 LV Mass: 303.35 67-162/88-224 g LV Mass Index: 140.44 43-95/49-115 g/m2 LVOT Diam: 2.20 3.0+(-)1.3 cm 2D Systolic Function EF 4C: 64.40 >55% EF 2C: 67.90 >55% EF BiP: 66.50 >55% Mitral Valve MV Pk E: 1.26 MV Decel Time: 154.00 E'Lateral: 10.90 E'Medial: 10.10 E/E' Med: 12.50 E/E' Lat: 11.60 PHT: 45.00 MVA PHT: 4.89 Decel [place]: 8.17 Aortic Valve AoV Pk Evert: 1.33 AoV Pk Grad: 7.00 LVOT LVOT Pk Evert: 0.92 LVOT Mn Evert: 0.54 LVOT VTI: 0.16 LVOT Pk Grad: 3.00 LVOT Mn Grad: 1.00 LVOT Diam: 2.20 LVOT Area: 3.80 Diastolic Function MV Pk E: 1.26 E'Medial: 10.10 E/E' Med: 12.50 E' Laterial: 10.90 E/E' Lat: 11.60 Right Ventricle TAPSE (mm): 19.70 TVS' Evert: 10.80 Tricuspid Valve TR Pk Evert: 2.06 TR Pk Grad: 17.00 Great Vessels Aorta Ao Root-2D: 2.80 2.0-3.7 cm Ao Asc: 3.30 2.1-3.4 cm Pulmonary Valve PV Pk Evert: 0.81 Peak PV Grad: 3.00 Updated in Other Vendor System with Status of Final Rei Lawrence MD electronically signed on 02/13/2024 12:09:22 PM with status of Final
[2024-02-13] MEDS: Atorvastatin Calcium 20 MG TABLET PO (08:45)
[2024-02-13] MEDS: Apixaban 5 MG TABLET PO ×2 (08:45→20:06)
[2024-02-13] MEDS: Pregabalin 150 MG CAPSULE PO ×2 (08:45→20:05)
[2024-02-13] MEDS: Metoprolol Tartrate 25 MG TABLET PO ×2 (08:45→20:05)
[2024-02-13] MEDS: Multivitamin TABLET 1 TAB PO (08:45)
[2024-02-13] MEDS: 0.9 % Sodium Chloride Flush 3 ML SYRINGE IVFLUSH ×2 (08:46→16:15)
--- NOTE | 2024-02-13 09:26 | P.PNIM_ITS ---
Subjective Subjective Date of Service: 02/13/24 Interval History: Was sleeping comfortably Neurologic Neurologic: Denies Abnormal speech present Physical Exam 2 Vital Signs: Vital Signs: Last Vital Signs Temp 98.4 F 02/13/24 06:24 Pulse 99 02/13/24 06:24 Resp 19 02/13/24 06:24 BP 129/85 02/13/24 06:24 Pulse Ox 94 02/13/24 06:24 O2 Del Method Room Air 02/13/24 06:24 BMI result Body Mass Index 38.7 Const: General: comfortable and no acute distress O rientation/consciousness: patient oriented x3 HEENT: Other: Unremarkable Head: Yes normal to inspection Neck: Neck: Yes normal visual inspection Chest: Chest palpation & inspection: normal inspection of the chest Resp: Auscultation: clear to auscultation bilaterally Cardio: Palpation: normal PMI Heart sounds: S1 normal heart sound present, S2 normal heart sound present, no gallops, no murmurs and no rubs GI: Palpation (GI): Soft to palpation Back/Spine/Pelvis: Other: unremarkable Skin: General skin exam: no rashes or lesions noted Neuro: General: patient oriented x3 Speech: No Abnormal speech present Extrem: General: Yes normal to inspection Psych: Mental Status: mental status grossly normal Objective Data Active Medications Acetaminophen (Acetaminophen 325 Mg Tablet) 650 mg PO Q6H PRN PRN Reason: Pain, Mild 1-3,fever,headache Albuterol Sulfate (Albuterol Sulfate 90 Mcg 8 Gm Inhaler) 1 puff INHALE QID PRN PRN Reason: Shortness Of Breath Or Wheezing Alprazolam (Alprazolam 0.5 Mg Tablet) 2 mg PO BEDTIME [facility] Last Admin: 02/12/24 20:49 Dose: 2 mg Documented By: JOSE Amitriptyline HCl (Amitriptyline Hcl 25 Mg Tablet) 75 mg PO BEDTIME [facility] Last Admin: 02/12/24 20:49 Dose: 75 mg Documented By: JOSE Apixaban (Apixaban 5 Mg Tablet) 5 mg PO BID [facility] Last Admin: 02/13/24 08:45 Dose: 5 mg Documented By: MEMO Atorvastatin Calcium (Atorvastatin Calcium 20 Mg Tablet) 20 mg PO DAILY [facility] Last Admin: 02/13/24 08:45 Dose: 20 mg Documented By: MEMO Baclofen (Baclofen 20 Mg Tablet) 20 mg PO BEDTIME [facility] Last Admin: 02/12/24 20:49 Dose: 20 mg Documented By: JOSE Bisacodyl (Bisacodyl 5 Mg Tablet.) 10 mg PO BEDTIME [facility] Last Admin: 02/12/24 20:49 Dose: 10 mg Documented By: JOSE Calcium Carbonate (Calcium Carbonate 750 Mg Tab.Chew) 750 mg PO Q4H PRN PRN Reason: Heartburn Carbidopa/Levodopa (Carbidopa/Levodopa 25/100 Tablet) 1 tab PO BEDTIME [facility] Last Admin: 02/12/24 20:49 Dose: 1 tab Documented By: JOSE Docusate Sodium (Docusate Sodium 100 Mg Capsule) 100 mg PO BEDTIME [facility] Last Admin: 02/12/24 20:50 Dose: 100 mg Documented By: JOSE Diltiazem HCl 125 mg/ Sodium (Chloride) 125 mls @ 0 mls/hr IVCONT .Q0M [facility]; Protocol Last Titration: 02/12/24 23:21 Dose: 0 mg/hr, 0 mls/hr Documented By: JOSE Loratadine (Loratadine 10 Mg Tablet) 10 mg PO DAILY PRN PRN Reason: allergies Magnesium Hydroxide (Milk Of Magnesia 30 Ml Oral.Susp) 30 ml PO DAILY PRN PRN Reason: Constipation Melatonin (Melatonin 3 Mg Tablet) 6 mg PO BEDTIME PRN PRN Reason: Insomnia Metoprolol Tartrate (Metoprolol Tartrate 25 Mg Tablet) 25 mg PO BID [facility]; Protocol Last Admin: 02/13/24 08:45 Dose: 25 mg Documented By: MEMO Multivitamins/Vitamin C (Multivitamin Tablet) 1 tab PO DAILY [facility] Last Admin: 02/13/24 08:45 Dose: 1 tab Documented By: MEMO Omeprazole (Omeprazole 20 Mg Capsule.) 20 mg PO DAILY@0630 [facility] Last Admin: 02/13/24 06:44 Dose: 20 mg Documented By: GERDA Oxycodone HCl (Oxycodone Hcl Immed Release 5 Mg Tablet) 5 mg PO Q6H PRN PRN Reason: Pain, Severe (Pain Scale 7-10) Last Admin: 02/12/24 23:22 Dose: 5 mg Documented By: JOSE Pregabalin (Pregabalin 150 Mg Capsule) 150 mg PO BID [facility] Last Admin: 02/13/24 08:45 Dose: 150 mg Documented By: MEMO Sodium Chloride (0.9 % Sodium Chloride Flush 3 Ml Syringe) 3 ml IVFLUSH QSHIFT [facility] Last Admin: 02/13/24 08:46 Dose: 3 ml Documented By: MEMO Trazodone HCl (Trazodone Hcl 100 Mg Tablet) 100 mg PO BEDTIME [facility] Last Admin: 02/12/24 20:50 Dose: 100 mg Documented By: JOSE Labs 02/13/24 04:10 02/13/24 04:10 Labs: Laboratory Results - last 24 hr 02/12/24 02/13/24 14:10 04:10 MCV 98.5 H 99.1 H MCH 33.1 H 33.3 H MCHC 33.6 33.6 RDW 14.8 15.0 Plt Count 188 173 MPV 13.7 H 13.4 H Immature Gran % (Auto) 0.5 H Neut % (Auto) 51.4 Lymph % (Auto) 37.4 [place] % (Auto) 8.9 Eos % (Auto) 1.0 Baso % (Auto) 0.8 Lymph # (Auto) 3.1 [place] # (Auto) 0.8 Eos # (Auto) 0.1 Baso # (Auto) 0.1 Abs Immat Gran (auto) 0.04 H Absolute Neuts (auto) 4.3 Absolute Nucleated RBC 0.000 0.000 Nucleated RBC % (auto) 0.0 0.0 PT 11.2 INR 1.0 APTT 32.8 Anion Gap 9 L 11 L Estim Creat Clear Calc 97.1 86.7 Estimated GFR > 60 > 60 Random Glucose 111 131 H Calcium 9.6 9.5 Magnesium 2.1 Total Bilirubin 0.4 AST 74 H ALT 79 H Alkaline Phosphatase 114 Troponin I High Sens 4.2 Total Protein 7.4 Albumin 3.7 TSH 0.25 L Free T4 0.99 Assessment and Plan (1) Atrial flutter with rapid ventricular response: Status: Acute Plan 63F PMH morbid obesity, mood disorder, PTSD, chronic pain, ?TIA 04/2023 without residual deficits, presented with atrial flutter ?New onset, atrial flutter with rapid ventricular response Diltiazem drip, started Lopressor, Eliquis, echo, cardio eval Morbid obesity Weight loss recommended Morbid obese Weight loss recommended Mood disorder, PTSD Continue Xanax, amitriptyline Chronic pain Continue Lyrica, baclofen DVT prophylaxis on Eliquis Full Code reason for continued hospitalization:still in rapid aflutter Quality Stroke Does the patient have a stroke diagnosis?: No VTE Prior VTE?: No VTE Risk Level:: Medical - moderate - high VTE Device Contraindication: Treatment Not Indicated VTE Drug Contraindication: N/A - Med Ordered
--- NOTE | 2024-02-13 10:35 | PC.NURSE ---
pt c/o wet linens and tj, stated that last night she spilt a cup of water on herself. linens changed and tj changed. pt got up to BR to urinate
--- NOTE | 2024-02-13 10:43 | P.CONCA_ITS ---
History of Present Illness History of Present Illness Date of Service: 02/13/24 Chief complaint: afib Narrative: This is a cardiology consultation regarding atrial flutter with rapid rate. Patient was actually seen in the clinic as today as a new patient. She was complaining of panic attacks. EKG in the clinic at shown atrial flutter with rapid rate in the 130s. Subsequently, she was sent to the ER. She was put on a Cardizem drip and subsequently admitted. She is still on a Cardizem drip. Overall, she is on have any active symptoms like chest pain or shortness of breath. In the past, it seems that her episodes of panic attacks could rather be atrial arrhythmias but not clear. She also has various other comorbidities including chronic pain issues. Review of Systems 2 Review of Systems: Yes all other systems are reviewed and are negative Constitutional: Constitutional: Reports as per HPI and Reports no additional constitutional complaints Eyes: Eyes: Reports as per HPI and Denies no additional eye complaints ENT: Denies system reviewed and no additional complaints, except as documented and Reports as per HPI Cardiovascular: Cardiovascular: Reports as per HPI, Reports no additional cardiovascular complaints, Denies acrocyanosis, Denies cool extremities, Denies chest pain, Denies leg edema, Denies lightheadedness, Reports palpitations and Denies dyspnea Respiratory: Respiratory: Reports as per HPI, Denies no additional respiratory complaints and Denies dyspnea Gastrointestinal: Gastrointestinal: Reports as per HPI and Denies no additional gastrointestinal complaints Genitourinary: Genitourinary: Reports as per HPI Musculoskeletal: Musculoskeletal: Reports no additional musculoskeletal complaints and Reports as per HPI Integumentary/Breasts: Skin/Breast: Reports system reviewed and no additional complaints, except as docu Neurologic: Reports system reviewed and no additional complaints, except as documented and Reports as per HPI Psychiatric: Psychiatric: Reports no additional psychiatric complaints and Reports as per HPI Endocrine: Endocrine: Reports no additional endocrine complaints, Reports as per HPI and Reports palpitations Hematologic/Lymphatic: Hematologic/Lymphatic: Reports no additional hematologic/lymphatic complaints and Reports as per HPI Allergic/Immunologic: Allergic/Immunologic: Reports no additional allergic/immunologic complaints and Reports as per HPI [facility] Past Medical History Medical History Migraine PTSD (post-traumatic stress disorder) Neuropathy Hyperlipidemia Chronic back pain Asthma Anxiety disorder Parasomnia, unspecified Sleep disorder, unspecified Chronic migraine without aura Complex regional pain syndrome type II Family History Family History Mother Cancer Sister Hypertension Surgical History Surgical History Hx of colonoscopy H/O carpal tunnel repair H/O: hysterectomy Social History Social History Household Members: None Housing: Apartment Do you presently have 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) Alcohol intake: current Alcohol intake frequency: a few times a week Patient Tobacco Use Status: Current everyday Tobacco user Cigarettes Per Day: 5 Smoked in Last 30 Days: Yes Patient Interested in Nicotine Replacement: Yes Use of substances other than those prescribed or required for medical reasons: No Do you feel safe in your current relationship?: No Current Relationship Is there a partner from a previous relationship who is making you feel unsafe now?: No Are you made to feel afraid or neglected: No Advance Directives: No Advance Directives Information Provided: Yes Do you have a plan to hurt others: No Plan Recently lost weight without trying: No Eating poorly because of decreased appetite: No Nutrition Risks: No Nutritional Risk Patient : No : No Poor oral hygiene: No Meds Allergies Allergy/AdvReac Type Severity Reaction Status Date / Time bee venom protein (honey bee) Allergy Severe Anaphylaxis Verified 02/12/24 13:46 Penicillins Allergy Severe Unknown Verified 02/12/24 13:46 Active Medications: Current Medications Acetaminophen (Acetaminophen 325 Mg Tablet) 650 mg PO Q6H PRN PRN Reason: Pain, Mild 1-3,fever,headache Albuterol Sulfate (Albuterol Sulfate 90 Mcg 8 Gm Inhaler) 1 puff INHALE QID PRN PRN Reason: Shortness Of Breath Or Wheezing Alprazolam (Alprazolam 0.5 Mg Tablet) 2 mg PO BEDTIME [facility] Last Admin: 02/12/24 20:49 Dose: 2 mg Amitriptyline HCl (Amitriptyline Hcl 25 Mg Tablet) 75 mg PO BEDTIME [facility] Last Admin: 02/12/24 20:49 Dose: 75 mg Apixaban (Apixaban 5 Mg Tablet) 5 mg PO BID [facility] Last Admin: 02/13/24 08:45 Dose: 5 mg Atorvastatin Calcium (Atorvastatin Calcium 20 Mg Tablet) 20 mg PO DAILY COUNT [facility]CLUDES [facility] Last Admin: 02/13/24 08:45 Dose: 20 mg Baclofen (Baclofen 20 Mg Tablet) 20 mg PO BEDTIME COUNT INCLUDES [facility] Last Admin: 02/12/24 20:49 Dose: 20 mg Bisacodyl (Bisacodyl 5 Mg Tablet.) 10 mg PO BEDTIME COUNT INCLUDES [facility] Last Admin: 02/12/24 20:49 Dose: 10 mg Calcium Carbonate (Calcium Carbonate 750 Mg Tab.Chew) 750 mg PO Q4H PRN PRN Reason: Heartburn Carbidopa/Levodopa (Carbidopa/Levodopa 25/100 Tablet) 1 tab PO BEDTIME COUNT [facility]CLUDES [facility] Last Admin: 02/12/24 20:49 Dose: 1 tab Docusate Sodium (Docusate Sodium 100 Mg Capsule) 100 mg PO BEDTIME COUNT [facility]CLUDES [facility] Last Admin: 02/12/24 20:50 Dose: 100 mg Diltiazem HCl 125 mg/ Sodium (Chloride) 125 mls @ 0 mls/hr IVCONT .Q0M COUNT INCLUDES [facility]; Protocol Last Titration: 02/12/24 23:21 Dose: 0 mg/hr, 0 mls/hr Loratadine (Loratadine 10 Mg Tablet) 10 mg PO DAILY PRN PRN Reason: allergies Magnesium Hydroxide (Milk Of Magnesia 30 Ml Oral.Susp) 30 ml PO DAILY PRN PRN Reason: Constipation Melatonin (Melatonin 3 Mg Tablet) 6 mg PO BEDTIME PRN PRN Reason: Insomnia Metoprolol Tartrate (Metoprolol Tartrate 25 Mg Tablet) 25 mg PO BID COUNT [facility]CLUDES [facility]; Protocol Last Admin: 02/13/24 08:45 Dose: 25 mg Multivitamins/Vitamin C (Multivitamin Tablet) 1 tab PO DAILY COUNT [facility]CLUDES [facility] Last Admin: 02/13/24 08:45 Dose: 1 tab Omeprazole (Omeprazole 20 Mg Capsule.) 20 mg PO DAILY@0630 COUNT [facility]CLUDES [facility] Last Admin: 02/13/24 06:44 Dose: 20 mg Oxycodone HCl (Oxycodone Hcl Immed Release 5 Mg Tablet) 5 mg PO Q6H PRN PRN Reason: Pain, Severe (Pain Scale 7-10) Last Admin: 02/12/24 23:22 Dose: 5 mg Pregabalin (Pregabalin 150 Mg Capsule) 150 mg PO BID COUNT [facility]CLUDES [facility] Last Admin: 02/13/24 08:45 Dose: 150 mg Sodium Chloride (0.9 % Sodium Chloride Flush 3 Ml Syringe) 3 ml IVFLUSH QSHIFT COUNT INCLUDES [facility] Last Admin: 02/13/24 08:46 Dose: 3 ml Trazodone HCl (Trazodone Hcl 100 Mg Tablet) 100 mg PO BEDTIME COUNT [facility]CLUDES [facility] Last Admin: 02/12/24 20:50 Dose: 100 mg Home Medications ?Medication ?Instructions ?Recorded ?Confirmed ?Last Taken ?Type alprazolam 2 mg tablet 2 mg PO BEDTIME 02/15/21 02/12/24 02/12/24 History epinephrine 0.3 mg/0.3 mL 0.3 mg IM Q4H PRN Anaphylaxis 02/15/21 02/12/24 Unknown History injection, auto-injector etodolac 500 mg tablet 500 mg PO BID PRN Migraines 02/15/21 02/12/24 Unknown History trazodone 100 mg tablet 100 mg PO BEDTIME 02/15/21 02/12/24 02/11/24 History albuterol sulfate 90 mcg/actuation 1 inh inhalation QID PRN Shortness 02/10/22 02/12/24 Unknown History aerosol inhaler (Ventolin HFA) Of Breath Or Wheezing cetirizine 10 mg tablet 10 mg PO DAILY PRN allergies 02/10/22 02/12/24 02/12/24 History atorvastatin 20 mg tablet 20 mg PO DAILY 05/16/23 02/12/24 02/12/24 History multivitamin with folic acid 400 1 tab PO DAILY 10/30/23 02/12/24 02/12/24 History mcg tablet (Daily-Trinity (with folic acid)) carbidopa 25 mg-levodopa 100 mg 1 tab PO BEDTIME 02/12/24 02/12/24 02/11/24 History tablet lisinopril 20 mg tablet 20 mg PO DAILY 02/12/24 02/12/24 02/12/24 History omeprazole 20 mg capsule,delayed 20 mg PO DAILY@0630 02/12/24 02/12/24 02/12/24 History release pregabalin 150 mg capsule 150 mg PO BID 02/12/24 02/12/24 02/12/24 History verapamil 120 mg tablet,extended 120 mg PO BEDTIME 02/12/24 02/12/24 02/12/24 History release Physical Exam 2 Vital Signs: Vital Signs: Last Vital Signs Temp 98.4 F 02/13/24 06:24 Pulse 99 02/13/24 06:24 Resp 19 02/13/24 06:24 BP 129/85 02/13/24 06:24 Pulse Ox 94 02/13/24 06:24 O2 Del Method Room Air 02/13/24 06:24 BMI result Body Mass Index 38.7 Const: General: comfortable and no acute distress O rientation/consciousness: patient oriented x3 HEENT: Other: Unremarkable Head: Yes normal to inspection Neck: Neck: Yes normal visual inspection Chest: Chest palpation & inspection: normal inspection of the chest Resp: Auscultation: clear to auscultation bilaterally Cardio: Palpation: normal PMI Heart sounds: S1 normal heart sound present, S2 normal heart sound present, no gallops, no murmurs and no rubs GI: Palpation (GI): Soft to palpation Back/Spine/Pelvis: Other: unremarkable Skin: General skin exam: no rashes or lesions noted Neuro: General: patient oriented x3 Extrem: General: Yes normal to inspection Psych: Mental Status: mental status grossly normal Objective Labs and Meds 02/13/24 04:10 02/13/24 04:10 Lab results: Laboratory Results - last 24 hr 02/12/24 02/13/24 14:10 04:10 WBC 8.4 6.4 RBC 4.53 4.39 Hgb 15.0 14.6 Hct 44.6 43.5 MCV 98.5 H 99.1 H MCH 33.1 H 33.3 H MCHC 33.6 33.6 RDW 14.8 15.0 Plt Count 188 173 MPV 13.7 H 13.4 H Immature Gran % (Auto) 0.5 H Neut % (Auto) 51.4 Lymph % (Auto) 37.4 [place] % (Auto) 8.9 Eos % (Auto) 1.0 Baso % (Auto) 0.8 Lymph # (Auto) 3.1 [place] # (Auto) 0.8 Eos # (Auto) 0.1 Baso # (Auto) 0.1 Abs Immat Gran (auto) 0.04 H Absolute Neuts (auto) 4.3 Absolute Nucleated RBC 0.000 0.000 Nucleated RBC % (auto) 0.0 0.0 PT 11.2 INR 1.0 APTT 32.8 Sodium 140 141 Potassium 4.1 4.1 Chloride 111 H 110 H Carbon Dioxide 24 24 Anion Gap 9 L 11 L BUN 10 13 Creatinine 0.75 0.84 Estim Creat Clear Calc 97.1 86.7 Estimated GFR > 60 > 60 Random Glucose 111 131 H Calcium 9.6 9.5 Magnesium 2.1 Total Bilirubin 0.4 AST 74 H ALT 79 H Alkaline Phosphatase 114 Troponin I High Sens 4.2 Total Protein 7.4 Albumin 3.7 TSH 0.25 L Free T4 0.99 ECG Interpretation: Admission EKG with atrial flutter at a rate of 125/Min. Assessment and Plan (1) Atrial flutter with rapid ventricular response: Status: Acute Plan Troponin level is unremarkable. Echocardiogram from August shows LVEF of 55-60%. No significant valve findings. Holter in September shows normal sinus rhythm. Currently, atrial flutter but unknown duration. Also not clear if it is paroxysmal or persistent. For medications, she takes verapamil at nighttime for migraine. However, she states it does not help too much. As the rates are indeed getting controlled with diltiazem drip, we can switch to oral diltiazem. With regard to beta-hina use, she has EpiPen listed. When I inquire more about this, she states she has used it few years back for bee stings. We discussed interactions between beta-blockers/EpiPen and that EpiPen may not work if someone is taking beta-blockers. She states that she is not concerned about that. Any case, we can try diltiazem for now and see how that goes. If necessary, consider adding beta-blockers. Eventually, could be an ablation candidate. Continue anticoagulation. Procedures Date of Service Date of Service: 02/13/24
--- NOTE | 2024-02-13 10:43 | MHC.CM.PN ---
IMM 02/13/24, Pt lives alone, has 44 hrs a week [employer] services through [facility]. For DME, she has w/c, walker, cane. PCP is confirmed: Dr. Foy, HCP discussed, form to be completed here, naming her dtr and son, and form will be added to chart. Pt may need assistance with transport home at DC. DCP: home, resume [employer] services. CM to follow for DC needs.
--- NOTE | 2024-02-13 11:57 | PC.NURSE ---
patient a&ox3, phototypesetting equipment monitor intact-aflutter on monitor, pt walks with cane/assist, rr equal/non labored, lungs clear, vitals to be obtained by tech, pt upset over being in the ED waiting for a inpt bed, also upset because she is unable to order food she wants ,plan of care ongoing
[2024-02-13] MEDS: ALPRAZolam 0.5 MG TABLET PO (13:40)
[2024-02-13] MEDS: oxyCODONE HCl Immed Release 5 MG TABLET PO ×2 (13:41→20:06)
[2024-02-13] MEDS: dilTIAZem HCL 60 MG TABLET PO ×3 (14:01→20:06)
--- NOTE | 2024-02-13 15:24 | MHC.EDTECH ---
EKG was completed yesterday @15:38 and got confirmed but it did not cross over in the computer, RN (PAULINE) aware
[2024-02-13] MEDS: Nicotine 14 MG PATCH.TD24 TRANSDERMA (16:15)
--- NOTE | 2024-02-13 16:18 | PC.NURSE ---
patient a&ox3, laboratory monitor aflutter 90s-low 100s, pt medicated per order. pt was given ear plugs and eye mask- pt upset over the noise of the ED. pt also given a nicotine patch per request. plan of care ongoing
--- NOTE | 2024-02-13 18:49 | PC.NURSE ---
patient a&ox3, vss, radiation monitor intact- pt remains in aflutter, pt has 4/10 back pain which she was previously medicated for, call carbone within reach, plan of care is ongoing
--- NOTE | 2024-02-13 19:26 | PC.NURSE ---
pt ambulated to bathroom with cane slow steady gait. pt report sent. skin pink warm and dry.
[2024-02-13] MEDS: Baclofen 20 MG TABLET PO (20:05)
[2024-02-13] MEDS: ALPRAZolam 0.5 MG TABLET 2 MG PO (20:05)
[2024-02-13] MEDS: bisacodyL 5 MG TABLET.DR 10 MG PO (20:05)
[2024-02-13] MEDS: Carbidopa/Levodopa 25/100 TABLET 1 TAB PO (20:05)
[2024-02-13] MEDS: traZODone HCL 100 MG TABLET PO (20:05)
[2024-02-13] MEDS: Docusate Sodium 100 MG CAPSULE PO (20:05)
[2024-02-13] MEDS: Amitriptyline HCl 25 MG TABLET 75 MG PO (20:06)
[2024-02-14] VITALS (7 sets, daily range): BP systolic 91–119; BP diastolic 64–78; PULSE 71–94; RESP 18–20; TEMP 36.1–36.4; O2SAT 90–96
[2024-02-14] MEDS: HYDROmorphone HCl 1 MG/ML SYRINGE IVPUSH (00:32)
[2024-02-14] MEDS: Omeprazole 20 MG CAPSULE.DR PO (05:46)
[2024-02-14 07:36] LABS: Hematocrit 45.2 % (37.0-47.0); Mean Corpuscular HGB Conc 33.2 g/dl (31.0-35.0); Mean Corpuscular Hemoglobin 33.3 pg (27.0-33.0); Mean Corpuscular Volume 100.2 fL (80.0-98.0); Mean Platelet Volume 13.8 fL (9.4-12.3); Platelet Count 170 X10*3/uL (160-400); Red Blood Count 4.51 X10*6/uL (4.20-5.50); Red Cell Distribution Width 14.8 % (11.0-16.0); White Blood Count 7.3 X10*3/uL (4.8-10.8)
[2024-02-14 07:53] LABS: Anion Gap 11 (12-20); Blood Urea Nitrogen 16 mg/dL (9-16); Calcium 9.8 mg/dL (8.4-10.2); Carbon Dioxide 25 mmol/L (22-29); Chloride 108 mmol/L (96-108); Estimated Glomerular Filt Rate > 60; Glucose Random 129 mg/dL (60-115); Potassium 4.3 mmol/L (3.3-5.1); Sodium 140 mmol/L (135-145)
[2024-02-14] MEDS: Nicotine 14 MG PATCH.TD24 TRANSDERMA (08:49)
[2024-02-14] MEDS: Metoprolol Tartrate 25 MG TABLET PO ×2 (08:52→20:27)
[2024-02-14] MEDS: Atorvastatin Calcium 20 MG TABLET PO (08:52)
[2024-02-14] MEDS: Apixaban 5 MG TABLET PO ×2 (08:52→20:27)
[2024-02-14] MEDS: Multivitamin TABLET 1 TAB PO (08:52)
[2024-02-14] MEDS: Pregabalin 150 MG CAPSULE PO ×2 (08:52→20:28)
[2024-02-14] MEDS: dilTIAZem HCL 60 MG TABLET PO (08:52)
[2024-02-14] MEDS: 0.9 % Sodium Chloride Flush 3 ML SYRINGE IVFLUSH ×3 (08:54→23:31)
[2024-02-14] MEDS: Acetaminophen 325 MG TABLET 650 MG PO ×3 (09:02→23:45)
[2024-02-14] MEDS: oxyCODONE HCl Immed Release 5 MG TABLET PO ×3 (09:02→23:44)
--- NOTE | 2024-02-14 13:53 | HO.PM.IMPN ---
Subjective Subjective Date of Service: 02/14/24 Review of Systems Follow-up atrial fibrillation No complaints of pain or discomfort Physical Exam Vital Signs: Vital Signs: Last Vital Signs Temp 97.6 F 02/14/24 11:05 Pulse 71 02/14/24 13:13 Resp 20 02/14/24 11:05 BP 91/64 02/14/24 13:13 Pulse Ox 93 02/14/24 13:13 O2 Del Method Room Air 02/14/24 11:05 O2 Flow Rate 98 02/13/24 14:05 BMI result Body Mass Index 38.7 Appearing in no acute distress lung sounds are clear to auscultation heart regular rate rhythm, clear S1, S2 positive bowel sounds, abdomen is soft, nontender neuro patient is alert x3, no focal deficits Objective Data Active Medications Acetaminophen (Acetaminophen 325 Mg Tablet) 650 mg PO Q6H PRN PRN Reason: Pain, Mild 1-3,fever,headache Last Admin: 02/14/24 09:02 Dose: 650 mg Documented By: ALIX Albuterol Sulfate (Albuterol Sulfate 90 Mcg 8 Gm Inhaler) 1 puff INHALE QID PRN PRN Reason: Shortness Of Breath Or Wheezing Alprazolam (Alprazolam 0.5 Mg Tablet) 2 mg PO BEDTIME [facility] [place] Last Admin: 02/13/24 20:05 Dose: 2 mg Documented By: CALLIE Amitriptyline HCl (Amitriptyline Hcl 25 Mg Tablet) 75 mg PO BEDTIME [facility] [place] Last Admin: 02/13/24 20:06 Dose: 75 mg Documented By: CALLIE Apixaban (Apixaban 5 Mg Tablet) 5 mg PO BID [facility] [place] Last Admin: 02/14/24 08:52 Dose: 5 mg Documented By: ALIX Atorvastatin Calcium (Atorvastatin Calcium 20 Mg Tablet) 20 mg PO DAILY [facility] [place] Last Admin: 02/14/24 08:52 Dose: 20 mg Documented By: LAIX Baclofen (Baclofen 20 Mg Tablet) 20 mg PO BEDTIME [facility] [place] Last Admin: 02/13/24 20:05 Dose: 20 mg Documented By: CALLIE Bisacodyl (Bisacodyl 5 Mg Tablet.) 10 mg PO BEDTIME [facility] [place] Last Admin: 02/13/24 20:05 Dose: 10 mg Documented By: CALLIE Calcium Carbonate (Calcium Carbonate 750 Mg Tab.Chew) 750 mg PO Q4H PRN PRN Reason: Heartburn Carbidopa/Levodopa (Carbidopa/Levodopa 25/100 Tablet) 1 tab PO BEDTIME [facility] [place] Last Admin: 02/13/24 20:05 Dose: 1 tab Documented By: CALLIE Diltiazem HCl (Diltiazem Hcl 60 Mg Tablet) 60 mg PO QID [facility] [place]; Protocol Last Admin: 02/14/24 08:52 Dose: 60 mg Documented By: ALIX Docusate Sodium (Docusate Sodium 100 Mg Capsule) 100 mg PO BEDTIME [facility] [place] Last Admin: 02/13/24 20:05 Dose: 100 mg Documented By: CALLIE Hydromorphone HCl (Hydromorphone Hcl 1 Mg/Ml Syringe) 1 mg IVPUSH Q3H PRN; Protocol PRN Reason: Pain, Severe (Pain Scale 7-10) Last Admin: 02/14/24 00:32 Dose: 1 mg Documented By: DESTINY Loratadine (Loratadine 10 Mg Tablet) 10 mg PO DAILY PRN PRN Reason: allergies Magnesium Hydroxide (Milk Of Magnesia 30 Ml Oral.Susp) 30 ml PO DAILY PRN PRN Reason: Constipation Melatonin (Melatonin 3 Mg Tablet) 6 mg PO BEDTIME PRN PRN Reason: Insomnia Metoprolol Tartrate (Metoprolol Tartrate 25 Mg Tablet) 25 mg PO BID [facility] [place]; Protocol Last Admin: 02/14/24 08:52 Dose: 25 mg Documented By: ALIX Multivitamins/Vitamin C (Multivitamin Tablet) 1 tab PO DAILY [facility] [place] Last Admin: 02/14/24 08:52 Dose: 1 tab Documented By: ALIX Nicotine (Nicotine 14 Mg Patch.Td24) 14 mg TRANSDERMA DAILY [facility] [place] Last Admin: 02/14/24 08:49 Dose: 14 mg Documented By: ALIX Omeprazole (Omeprazole 20 Mg Capsule.Dr) 20 mg PO DAILY@0630 [facility] [place] Last Admin: 02/14/24 05:46 Dose: 20 mg Documented By: DESTINY Oxycodone HCl (Oxycodone Hcl Immed Release 5 Mg Tablet) 5 mg PO Q6H PRN PRN Reason: Pain, Severe (Pain Scale 7-10) Last Admin: 02/14/24 09:02 Dose: 5 mg Documented By: ALIX Pregabalin (Pregabalin 150 Mg Capsule) 150 mg PO BID [facility] [place] Last Admin: 02/14/24 08:52 Dose: 150 mg Documented By: ALIX Sodium Chloride (0.9 % Sodium Chloride Flush 3 Ml Syringe) 3 ml IVFLUSH QSHIFT [facility] [place] Last Admin: 02/14/24 08:54 Dose: 3 ml Documented By: ALIX Trazodone HCl (Trazodone Hcl 100 Mg Tablet) 100 mg PO BEDTIME [facility] [place] Last Admin: 02/13/24 20:05 Dose: 100 mg Documented By: TOCCHA Labs 02/14/24 06:31 02/14/24 06:31 Labs: Laboratory Results - last 24 hr 02/14/24 06:31 MCV 100.2 H MCH 33.3 H MCHC 33.2 RDW 14.8 Plt Count 170 MPV 13.8 H Absolute Nucleated RBC 0.000 Nucleated RBC % (auto) 0.0 Anion Gap 11 L Estim Creat Clear Calc 91.0 Estimated GFR > 60 Random Glucose 129 H Calcium 9.8 Assessment and Plan (1) Atrial flutter with rapid ventricular response: Status: Acute Plan 63F PMH morbid obesity, mood disorder, PTSD, chronic pain, ?TIA 04/2023 without residual deficits, presented with atrial flutter New onset, atrial flutter with rapid ventricular response s/p Diltiazem drip started cardizem CD, Lopressor and Eliquis echo normal EF cardio eval Severe obese. BMI 38.7 Discussed importance of weight management as this may be contributing to worsening of other comorbidities Mood disorder, PTSD Continue home medications Chronic pain Continue Lyrica, baclofen History of Parkinson's disease Continue Sinemet GERD Continue PPI DISPO PT rec home with PT, ambulate and OOB to chair DVT prophylaxis on Eliquis Full Code reason for continued hospitalization:still in rapid aflutter Quality Stroke Does the patient have a stroke diagnosis?: No VTE Prior VTE?: No VTE Risk Level:: Medical - moderate - high VTE Device Contraindication: Treatment Not Indicated VTE Drug Contraindication: N/A - Med Ordered
--- NOTE | 2024-02-14 14:02 | PM.DS ---
DS: Providers Provider Date of Service: 02/15/24 <GEO Anders - Last Filed: 02/15/24 16:44> Date of admission: 02/12/24 17:38 <Mindi Block NP - Last Filed: 02/14/24 14:05> Date of discharge: 02/15/24 <GEO Anders - Last Filed: 02/15/24 16:44> Primary care physician: Phi Foy MD <Mindi Block NP - Last Filed: 02/14/24 14:05> Consults: 02/12/24 17:45 Consult to Cardiology Routine Consulting Provider[place] [facility] [place] [facility] Reason for consultation: aflutter <Mindi Block NP - Last Filed: 02/14/24 14:05> Attending physician on discharge: Prakash Brown <GEO Anders - Last Filed: 02/15/24 16:44> Discharging clinician: Christiana Reardon <GEO Anders - Last Filed: 02/15/24 16:44> DS: Diagnosis Discharge Diagnosis (1) Atrial flutter with rapid ventricular response: Status: Acute <Mindi Block NP - Last Filed: 02/14/24 14:05> DS: Summary Hospital Course Hospital Course: History and physical as per admitting provider. 63F PMH morbid obesity, mood disorder, PTSD, chronic pain, ?TIA 04/2023 without residual deficits, presented with atrial flutter. Patient had been in outpatient Cardiology. EKG showed atrial flutter with rapid ventricular response of 135. Patient is unaware of any history in the past has no known coronary artery disease has no known history of AFib. Patient denies any change in symptoms. 63-year-old woman treated for new onset atrial flutter with rapid ventricular response, initially treated with IV diltiazem drip. Started on metoprolol, Eliquis and change to Cardizem CD. Seen evaluated by Cardiology. Possible plan for ablation outpatient, patient to follow up with Cardiology in the office. Patient's heart rate is much better controlled at this time on new medications. Seen evaluated by Physical therapy who recommended PT at home. Severe obesity. BMI 38.7. Discussed importance of weight management as this may be contributing to worsening of other comorbidities Mental health. Continue medications Chronic pain. Continue Lyrica and baclofen History of Parkinson's disease. Continue Sinemet GERD. Continue PPI <Mindi Block NP - Last Filed: 02/14/24 14:05> Time Attestation Discharge Coordination Time (in mins): 36 <GEO Anders - Last Filed: 02/15/24 16:44> Quality: Safe Use of Opioids Does Pt have an Active Cancer Diagnosis on the Problem List?: No <GEO Anders - Last Filed: 02/15/24 16:44> Quality: Stroke Does the patient have a stroke diagnosis?: No <GEO Anders - Last Filed: 02/15/24 16:44> Physical Exam Vital Signs: Vital Signs: Last Vital Signs Temp 97.6 F 02/14/24 11:05 Pulse 71 02/14/24 13:13 Resp 20 02/14/24 11:05 BP 91/64 02/14/24 13:13 Pulse Ox 93 02/14/24 13:13 O2 Del Method Room Air 02/14/24 11:05 O2 Flow Rate 98 02/13/24 14:05 BMI result Body Mass Index 38.7 <Mindi Block NP - Last Filed: 02/14/24 14:05> Const: General: cooperative, no acute distress, alert and awake <GEO Anders - Last Filed: 02/15/24 16:44> Nutritional Appearance: overweight <GEO Anders - Last Filed: 02/15/24 16:44> Resp: Effort & Inspection: normal respiratory effort, able to speak in complete sentences, no respiratory distress and no use of accessory muscles <GEO Anders - Last Filed: 02/15/24 16:44> Cardio: Rate: regular rate <GEO Anders - Last Filed: 02/15/24 16:44> DS: Data Data Completed and Pending Labs on day of discharge: Laboratory Results - last 24 hr 02/14/24 06:31 WBC 7.3 RBC 4.51 Hgb 15.0 Hct 45.2 MCV 100.2 H MCH 33.3 H MCHC 33.2 RDW 14.8 Plt Count 170 MPV 13.8 H Absolute Nucleated RBC 0.000 Nucleated RBC % (auto) 0.0 Sodium 140 Potassium 4.3 Chloride 108 Carbon Dioxide 25 Anion Gap 11 L BUN 16 Creatinine 0.80 Estim Creat Clear Calc 91.0 Estimated GFR > 60 Random Glucose 129 H Calcium 9.8 <Mindi Block NP - Last Filed: 02/14/24 14:05> Discharge Plan Discharge Anticipated Discharge Date/Time: 02/15/24 12:53 <Mindi Block NP - Last Filed: 02/14/24 14:05> Patient Disposition: Home Health Service <Mindi Block NP - Last Filed: 02/14/24 14:05> Discharge Diagnosis: Atrial flutter <Mindi Block NP - Last Filed: 02/14/24 14:05> Atrial flutter <GEO Anders - Last Filed: 02/15/24 16:44> Referrals: Kapil PEREZ [Outside] - 1 Week Zack Foy MD [Primary Care Provider] - 1 Week Rei Lawrence MD [Physician] - 1 Week <Mindi Block NP - Last Filed: 02/14/24 14:05> Discharge Medications: New diltiazem HCl 240 mg Capsule,Extended Release 24hr 240 mg PO DAILY Qty: 30 0RF Protocol: Hold for SBP/HR < HOLD for SBP < : 90 HOLD for HR < : 60 metoprolol tartrate 25 mg Tablet 25 mg PO BID Qty: 60 0RF Protocol: Hold for SBP/HR < HOLD for SBP < : 90 HOLD for HR < : 60 Eliquis 5 mg Tablet 5 mg PO BID Qty: 60 0RF lisinopril 10 mg tablet 10 mg PO DAILY 90 Days Qty: 90 0RF Continued vitamin B complex [Vitamins B Complex] Capsule 1 cap PO DAILY 90 Days Qty: 90 1RF (DME) Cane tips 3/4 inch See Rx Instructions .Route .MEDSUPPLY Qty: 1 0RF Rx Instructions: As directed (DME) Ultra-Light Rollator Misc See Rx Instructions .Route Qty: 1 0RF Rx Instructions: Seated 4 wheeled walker with basket (DME) cane Device See Rx Instructions .Route Qty: 1 0RF Rx Instructions: Single point cane. Use when walking (DME) back brace Misc See Rx Instructions .Route Qty: 1 0RF Rx Instructions: Lumbar back support. Use when sitting docusate sodium 100 mg capsule 100 mg PO BEDTIME Qty: 90 3RF baclofen 10 mg tablet 20 mg PO BEDTIME 30 Days Qty: 60 2RF amitriptyline 25 mg tablet 75 mg PO BEDTIME 30 Days Qty: 90 2RF omeprazole 20 mg capsule,delayed release(DR/EC) 20 mg PO DAILY@0630 carbidopa-levodopa 25-100 mg tablet 1 tab PO BEDTIME pregabalin 150 mg capsule 150 mg PO BID alprazolam 2 mg tablet 2 mg PO BEDTIME epinephrine 0.3 mg/0.3 mL auto-injector 0.3 mg IM Q4H PRN (Reason: Anaphylaxis) etodolac 500 mg tablet 500 mg PO BID PRN (Reason: Migraines) trazodone 100 mg tablet 100 mg PO BEDTIME (DME) Door alarm See Rx Instructions .Route .MEDSUPPLY Qty: 2 0RF Rx Instructions: apply to bedroom and exit door at night (DME) Laser alarm See Rx Instructions .Route .MEDSUPPLY Qty: 1 0RF Rx Instructions: Laser alarm applied to head of bed, turn on nightly; albuterol sulfate [Ventolin HFA] 90 mcg/actuation HFA aerosol inhaler 1 inh inhalation QID PRN (Reason: Shortness Of Breath Or Wheezing) cetirizine 10 mg tablet 10 mg PO DAILY PRN (Reason: allergies) simethicone [Gas Relief (simethicone)] 180 mg capsule 180 mg PO BID PRN (Reason: abdominal distention) Qty: 180 4RF (DME) blood pressure monitor Kit See Rx Instructions .Route Qty: 1 0RF Rx Instructions: As directed (DME) cane Device See Rx Instructions .Route Qty: 1 0RF Rx Instructions: As directed atorvastatin 20 mg tablet 20 mg PO DAILY multivitamin with folic acid [Daily-Trinity (with folic acid)] 400 mcg tablet 1 tab PO DAILY bisacodyl [Dulcolax (bisacodyl)] 5 mg tablet,delayed release (DR/EC) 10 mg PO BEDTIME Qty: 180 4RF Motegrity 2 mg tablet 2 mg PO DAILY Qty: 30 2RF magnesium citrate [Citrate of Magnesia] Solution 150 ml PO DAILY PRN (Reason: constipation) Qty: 296 2RF Discontinued lisinopril 20 mg tablet 20 mg PO DAILY Protocol: Hold for SBP< HOLD for SBP < : 115 verapamil 120 mg tablet extended release 120 mg PO BEDTIME <Mindi Block NP - Last Filed: 02/14/24 14:05> Discharge Orders: Discharge Order (Routine); Ordered 02/15/24 Ordered By: Christiana Reardon <Mindi Block NP - Last Filed: 02/14/24 14:05> Diet: Advance to usual diet <Mindi Block NP - Last Filed: 02/14/24 14:05> Advance to usual diet <GEO Anders - Last Filed: 02/15/24 16:44> Activity on Discharge: As tolerated <Mindi Block NP - Last Filed: 02/14/24 14:05> As tolerated <GEO Anders - Last Filed: 02/15/24 16:44> Stand Alone Forms: Patient Portal Discharge page <Mindi Block NP - Last Filed: 02/14/24 14:05> Print Language: Kyrgyz <Mindi Block NP - Last Filed: 02/14/24 14:05> Care Plan Goals: Follow-up with cardiology outpatient management of atrial flutter <Mindi Block NP - Last Filed: 02/14/24 14:05> Health Concerns: Atrial flutter - take cardizem and metoprolol for heart rate control and eliquis to reduce the risk of stroke. Do not drink alcohol with blood thinner, or take NSAIDs with blood thinner unless discussed with your medical provider Call to schedule follow-up appointment with Cardiology Dose of lisinopril has been decreased to 10 mg daily Stopped taking verapamil <Mindi Block NP - Last Filed: 02/14/24 14:05> Plan of Treatment: Take all medications as prescribed <Mindi Block NP - Last Filed: 02/14/24 14:05> Assessment: See discharge summary <Mindi Block NP - Last Filed: 02/14/24 14:05>
[2024-02-14] MEDS: bisacodyL 5 MG TABLET.DR 10 MG PO (20:26)
[2024-02-14] MEDS: Carbidopa/Levodopa 25/100 TABLET 1 TAB PO (20:26)
[2024-02-14] MEDS: traZODone HCL 100 MG TABLET PO (20:27)
[2024-02-14] MEDS: ALPRAZolam 0.5 MG TABLET 2 MG PO (20:27)
[2024-02-14] MEDS: Amitriptyline HCl 25 MG TABLET 75 MG PO (20:27)
[2024-02-14] MEDS: Docusate Sodium 100 MG CAPSULE PO (20:28)
[2024-02-14] MEDS: Baclofen 20 MG TABLET PO (20:28)
[2024-02-15] VITALS: BP 116/70; PULSE 94; RESP 16; TEMP 36.1; O2SAT 92
[2024-02-15 04:00] VITALS: BP 120/65; PULSE 81; RESP 16; TEMP 36.6
[2024-02-15] MEDS: Omeprazole 20 MG CAPSULE.DR PO (05:40)
[2024-02-15 07:30] VITALS: BP 132/73; PULSE 94; RESP 16; TEMP 36; O2SAT 93
[2024-02-15] MEDS: Nicotine 14 MG PATCH.TD24 TRANSDERMA (08:52)
[2024-02-15 08:53] VITALS: BP 132/73; PULSE 94
[2024-02-15] MEDS: dilTIAZem HCL CD 240 MG CAP.ER.DEG PO (08:53)
[2024-02-15] MEDS: Multivitamin TABLET 1 TAB PO (08:53)
[2024-02-15] MEDS: 0.9 % Sodium Chloride Flush 3 ML SYRINGE IVFLUSH (08:53)
[2024-02-15] MEDS: Apixaban 5 MG TABLET PO (08:53)
[2024-02-15] MEDS: Pregabalin 150 MG CAPSULE PO (08:53)
[2024-02-15] MEDS: Atorvastatin Calcium 20 MG TABLET PO (08:53)
[2024-02-15] MEDS: Metoprolol Tartrate 25 MG TABLET PO (08:53)
[2024-02-15] MEDS: HYDROmorphone HCl 1 MG/ML SYRINGE IVPUSH (08:56)
[2024-02-15 10:52] VITALS: BP 130/79; PULSE 108; RESP 18; TEMP 36.1; O2SAT 96
--- NOTE | 2024-02-15 12:22 | P.DS_ITS ---
DS: Providers Provider Date of admission: 02/12/24 17:38 Primary care physician: Phi Foy MD Consults: 02/12/24 17:45 Consult to Cardiology Routine Consulting Provider: [facility] [place] [facility] Reason for consultation: aflutter DS: Diagnosis Discharge Diagnosis (1) Atrial flutter with rapid ventricular response: Status: Acute DS: Summary Hospital Course Hospital Course: History and physical as per admitting provider. 63F PMH morbid obesity, mood disorder, PTSD, chronic pain, ?TIA 04/2023 without residual deficits, presented with atrial flutter. Patient had been in outpatient Cardiology. EKG showed atrial flutter with rapid ventricular response of 135. Patient is unaware of any history in the past has no known coronary artery disease has no known history of AFib. Patient denies any change in symptoms. 63-year-old woman treated for new onset atrial flutter with rapid ventricular response, initially treated with IV diltiazem drip. Started on metoprolol, Eliquis and change to Cardizem CD. Seen evaluated by Cardiology. Possible plan for ablation outpatient, patient to follow up with Cardiology in the office. Patient's heart rate is much better controlled at this time on new medications. Seen evaluated by Physical therapy who recommended PT at home. Severe obesity. BMI 38.7. Discussed importance of weight management as this may be contributing to worsening of other comorbidities Mental health. Continue medications Chronic pain. Continue Lyrica and baclofen History of Parkinson's disease. Continue Sinemet GERD. Continue PPI Physical Exam Vital Signs: Vital Signs: Last Vital Signs Temp 96.9 F 02/15/24 10:52 Pulse 108 H 02/15/24 10:52 Resp 18 02/15/24 10:52 BP 130/79 02/15/24 10:52 Pulse Ox 96 02/15/24 10:52 O2 Del Method Room Air 02/15/24 10:52 O2 Flow Rate 98 02/13/24 14:05 BMI result Body Mass Index 38.7 Discharge Plan Discharge Patient Disposition: Home Health Service Discharge Diagnosis: Atrial flutter Referrals: Zack Foy MD [Primary Care Provider] - 1 Week Discharge Medications: New Eliquis 5 mg Tablet 5 mg PO BID Qty: 60 0RF metoprolol tartrate 25 mg Tablet 25 mg PO BID Qty: 60 0RF Protocol: Hold for SBP/HR < HOLD for SBP < : 90 HOLD for HR < : 60 diltiazem HCl 240 mg Capsule,Extended Release 24hr 240 mg PO DAILY Qty: 30 0RF Protocol: Hold for SBP/HR < HOLD for SBP < : 90 HOLD for HR < : 60 Continued vitamin B complex [Vitamins B Complex] Capsule 1 cap PO DAILY 90 Days Qty: 90 1RF (DME) Cane tips 3/4 inch See Rx Instructions .Route .MEDSUPPLY Qty: 1 0RF Rx Instructions: As directed (DME) Ultra-Light Rollator Misc See Rx Instructions .Route Qty: 1 0RF Rx Instructions: Seated 4 wheeled walker with basket (DME) cane Device See Rx Instructions .Route Qty: 1 0RF Rx Instructions: Single point cane. Use when walking (DME) back brace Misc See Rx Instructions .Route Qty: 1 0RF Rx Instructions: Lumbar back support. Use when sitting docusate sodium 100 mg capsule 100 mg PO BEDTIME Qty: 90 3RF baclofen 10 mg tablet 20 mg PO BEDTIME 30 Days Qty: 60 2RF amitriptyline 25 mg tablet 75 mg PO BEDTIME 30 Days Qty: 90 2RF lisinopril 20 mg tablet 20 mg PO DAILY Protocol: Hold for SBP< HOLD for SBP < : 115 omeprazole 20 mg capsule,delayed release(DR/EC) 20 mg PO DAILY@0630 carbidopa-levodopa 25-100 mg tablet 1 tab PO BEDTIME pregabalin 150 mg capsule 150 mg PO BID alprazolam 2 mg tablet 2 mg PO BEDTIME epinephrine 0.3 mg/0.3 mL auto-injector 0.3 mg IM Q4H PRN (Reason: Anaphylaxis) etodolac 500 mg tablet 500 mg PO BID PRN (Reason: Migraines) trazodone 100 mg tablet 100 mg PO BEDTIME (DME) Door alarm See Rx Instructions .Route .MEDSUPPLY Qty: 2 0RF Rx Instructions: apply to bedroom and exit door at night (DME) Laser alarm See Rx Instructions .Route .MEDSUPPLY Qty: 1 0RF Rx Instructions: Laser alarm applied to head of bed, turn on nightly; albuterol sulfate [Ventolin HFA] 90 mcg/actuation HFA aerosol inhaler 1 inh inhalation QID PRN (Reason: Shortness Of Breath Or Wheezing) cetirizine 10 mg tablet 10 mg PO DAILY PRN (Reason: allergies) simethicone [Gas Relief (simethicone)] 180 mg capsule 180 mg PO BID PRN (Reason: abdominal distention) Qty: 180 4RF (DME) blood pressure monitor Kit See Rx Instructions .Route Qty: 1 0RF Rx Instructions: As directed (DME) cane Device See Rx Instructions .Route Qty: 1 0RF Rx Instructions: As directed atorvastatin 20 mg tablet 20 mg PO DAILY multivitamin with folic acid [Daily-Trinity (with folic acid)] 400 mcg tablet 1 tab PO DAILY bisacodyl [Dulcolax (bisacodyl)] 5 mg tablet,delayed release (DR/EC) 10 mg PO BEDTIME Qty: 180 4RF Motegrity 2 mg tablet 2 mg PO DAILY Qty: 30 2RF magnesium citrate [Citrate of Magnesia] Solution 150 ml PO DAILY PRN (Reason: constipation) Qty: 296 2RF Discontinued verapamil 120 mg tablet extended release 120 mg PO BEDTIME Diet: Advance to usual diet Activity on Discharge: As tolerated Stand Alone Forms: Patient Portal Discharge page Print Language: Kyrgyz Care Plan Goals: Follow-up with cardiology outpatient management of atrial flutter Health Concerns: Atrial flutter Plan of Treatment: Take all medications as prescribed Assessment: See discharge summary
--- NOTE | 2024-02-15 12:29 | P.F2F_ITS ---
Service Date Service Date: 02/15/24 Encounter Date of encounter: 02/15/24 Reasons for Services Signs and symptoms assessed: needs PT for bed mobility, transfer training, gait training, therapeutic activities and exercises Reason for physical therapy: home safety and mobility and therapeutic exercises Overseeing Care: Zack Foy Homebound: Leaving the home is medically contraindicated at this time without the asist of a device and/or another person due th the listed conditions above and below. Reason homebound: poor balance / fall risk Certification: Based on the above findings, I certify that this patient is confined to the home and needs intermittent correction care, physical therapy and/or speech therapy, or continues to need occupational therapy. The patient is under my care, and I have initiated the establishment of the plan of care. The patient will be followed by a physician who will periodically review the plan of care. Time Spent With Patient Time: Total time managing care of this patient today ____ minutes.
--- NOTE | 2024-02-15 15:22 | MHC.CM.PN ---
Pt has been medically cleared for DC, she will go home via private transport and have home care services from [facility]
== END 2024-02-15 17:19 | disposition home health service (06) | DRG 310 ==
LOC: HO.ED 17:15 → HO.EDOVER 17:41 → HO.IMC 02-13 19:04
PROVIDERS: Physician Assistant; Admitting Provider Internal Medicine; Emergency Provider Emergency Medicine; PCP Internal Medicine; Visit Provider Physician Assistant Medical
DX: I48.92 Unspecified atrial flutter (principal); F17.210 Nicotine dependence, cigarettes, uncomplicated; Z71.6 Tobacco abuse counseling; E66.01 Morbid (severe) obesity due to excess calories; F43.10 Post-traumatic stress disorder, unspecified; G89.29 Other chronic pain; Z68.38 Body mass index [BMI] 38.0-38.9, adult; Z71.3 Dietary counseling and surveillance; Z86.73 Personal history of transient ischemic attack (TIA), and cerebral infarction without residual deficits; Z79.899 Other long term (current) drug therapy
CPT/HCPCS: 36415; 80048; 80053; 83735; 84439; 84443; 84484; 85025; 85027; 85610; 85730; 93005; 93306; 97162; 99285; J1171; Q9957

== ENCOUNTER 2024-02-12 17:38 | Outpatient (BNV) | payer OTHER, SELFPAY | END 2024-02-13 07:00 | PROVIDERS: Admitting Provider Internal Medicine; Emergency Provider Emergency Medicine; PCP Internal Medicine; Visit Provider Internal Medicine | DX: I48.91 Unspecified atrial fibrillation (principal) | CPT/HCPCS: 93306 ==

== ENCOUNTER → 2024-02-12 17:38 | Outpatient (BNV) | payer OTHER, SELFPAY | PROVIDERS: Admitting Provider Internal Medicine; Emergency Provider Emergency Medicine; PCP Internal Medicine; Visit Provider Internal Medicine | DX: I48.92 Unspecified atrial flutter (principal) | CPT/HCPCS: 99223 ==

== ENCOUNTER → 2024-02-12 17:38 | Outpatient (BNV) | payer OTHER, SELFPAY | PROVIDERS: Admitting Provider Internal Medicine; Emergency Provider Emergency Medicine; PCP Internal Medicine; Visit Provider Internal Medicine | DX: I48.92 Unspecified atrial flutter (principal) | CPT/HCPCS: G0180 ==

== ENCOUNTER 2024-02-28 10:50 | Outpatient (AMB) | payer OTHER, SELFPAY ==
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
[2024-02-28 11:05] VITALS: BP 128/76; PULSE 105; O2SAT 95
== END 2024-02-28 11:20 | disposition home or self-care (01) ==
PROVIDERS: PCP Internal Medicine; Referring Provider Nurse Practitioner Family; Visit Provider Anesthesiology
DX: M47.812 Spondylosis without myelopathy or radiculopathy, cervical region (principal); M43.12 Spondylolisthesis, cervical region; G56.43 Causalgia of bilateral upper limbs
CPT/HCPCS: 99203

== ENCOUNTER → 2024-02-28 10:50 | Outpatient (BNVA) | payer OTHER, SELFPAY | PROVIDERS: PCP Internal Medicine; Referring Provider Nurse Practitioner Family; Visit Provider Anesthesiology | DX: M47.812 Spondylosis without myelopathy or radiculopathy, cervical region (principal); M43.12 Spondylolisthesis, cervical region; G56.43 Causalgia of bilateral upper limbs | CPT/HCPCS: 99202 ==

== ENCOUNTER 2024-03-04 13:29 | Emergency (ER) | payer OTHER, SELFPAY ==
--- NOTE | ~2024-03-04 | CT_ITS ---
EXAMINATION: CT HEAD WITHOUT CONTRAST (STROKE PROTOCOL) CLINICAL INFORMATION: Stroke protocol. Change in speech. 63-year-old female. COMPARISON: None available. TECHNIQUE: Contiguous axial imaging was performed from the skull base to vertex without intravenous administration of contrast. This CT examination was performed using dose optimization techniques as appropriate, variously including the following: *Automated exposure control *Adjustment of mA and/or kV according to patient size (this includes techniques or standardized protocols for targeted exams where dose is matched to indication/reason for exam; i.e. extremities or head) *Use of iterative reconstruction technique FINDINGS: There is no evidence of intracranial hemorrhage or extra-axial fluid collection. There is no mass effect, or edema. No CT evidence of acute territorial infarct. Ventricles, sulci, and cisterns are normal in size and configuration for patient age. No hydrocephalus. No midline shift. Negative hyperdense MCA sign. Negative insular ribbon sign. Chronic appearing tiny old lacunar infarcts noted bilateral anterior gangliocapsular regions. Otherwise, no significant white matter abnormalities. Partial empty sella noted. Mild atheromatous calcification of the bilateral carotid siphons and V4 segments vertebral arteries bilaterally. Globes and orbital contents image normally. No extracranial soft tissue abnormalities. The paranasal sinuses, mastoid air cells, and tympanic cavities are normally aerated. No suspicious bony abnormalities. CT/CT head for STROKE IMPRESSION: No acute intracranial abnormality. Electronically signed by: Casa Anne MD 03/04/2024 02:32 PM [facility] [place]
--- NOTE | ~2024-03-04 | CT_ITS ---
EXAMINATION: CT ABDOMEN AND PELVIS WITH CONTRAST CLINICAL INFORMATION: GI bleed. COMPARISON: None available. TECHNIQUE: Multidetector volumetric images were obtained from the superior aspect of the liver through the pubic symphysis following administration 85 mL of Omnipaque 350 intravenous contrast. Sagittal and coronal reformatted images were obtained on the technologist's workstation. Oral contrast: No This CT examination was performed using dose optimization techniques as appropriate, variously including the following: *Automated exposure control *Adjustment of mA and/or kV according to patient size (this includes techniques or standardized protocols for targeted exams where dose is matched to indication/reason for exam; i.e. extremities or head) *Use of iterative reconstruction technique DLP: 2407 mGy/cm. FINDINGS: LUNG BASES: There is minimal scarring/atelectasis in lung bases. The heart size is normal. LIVER, GALLBLADDER, AND BILIARY TREE: The liver is enlarged in size measuring 20 cm in craniocaudad length. It has normal shape and and attenuation. No focal hepatic lesion or biliary ductal dilatation is present. The gallbladder is unremarkable with no evidence of radiopaque gallstones, gallbladder wall thickening, or obvious pericholecystic inflammatory changes. PANCREAS: Unremarkable. SPLEEN: Unremarkable. ADRENAL GLANDS: There is a 9 mm left adrenal nodule, too small to correctly characterize. The right adrenal gland is unremarkable. KIDNEYS AND URETERS: The kidneys are normal in size, shape, and attenuation. No hydronephrosis, hydroureter, or calculi seen. No perinephric stranding. BLADDER: Unremarkable. GASTROINTESTINAL TRACT: Visualized stomach appears unremarkable. The small bowel loops are normal caliber. Scattered stool and gas is seen in colon without distention. The ileocecal junction appears normal. Appendix is likely normal. No fat stranding, free air or free fluid seen. ABDOMINAL WALL: No significant hernia is appreciated. LYMPH NODES: Normal. VASCULAR: Unremarkable. PELVIC VISCERA: The uterus is surgically absent. There is no free fluid or free air. OSSEOUS STRUCTURES: There is grade 1 anterolisthesis L3 over L4 with mild loss of L3-4 disc height. Mild degenerative disc changes L5-S1, L4-5 disc levels are noted. CT/CT abdomen pelvis w IV con IMPRESSION: No acute intra-abdominal process seen. Mild constipation. Hepatomegaly without focal lesion. Bibasilar atelectasis/scarring. Fleischner guidelines were followed. Electronically signed by: Juan Alanis MD 03/04/2024 02:43 PM EST RP
--- NOTE | ~2024-03-04 | XR_ITS ---
EXAMINATION: XR CHEST CLINICAL INFORMATION: Screening-no further clinical information provided COMPARISON: None available. TECHNIQUE: AP portable view of the chest was obtained. FINDINGS: Cardiac silhouette is prominent but may be magnified by AP technique. Mediastinal and hilar contours appear normal. Lungs demonstrate mildly increased background bronchovascular markings, likely technical and secondary to patient habitus. Lungs otherwise clear. No effusion or pneumothorax. No focal osseous or soft tissue abnormality. Degenerative spinal changes. XR/XR chest 1V IMPRESSION: Within confines of technique and habitus, no active disease. Electronically signed by: Casa Anne MD 03/04/2024 02:58 PM [facility]
--- NOTE | ~2024-03-04 | CT_ITS ---
EXAMINATION: CT ANGIOGRAM HEAD AND NECK CLINICAL INFORMATION: Suspect stroke. COMPARISON: No prior CT angiography. TECHNIQUE: Noncontrast axial imaging of the head was performed. This was followed by test bolus sequences and head and neck intravenous bolus administration 85 mL of Omnipaque 350 contrast. Helical imaging was performed in the axial plane from the aortic arch to the skull vertex. A [address] head was also obtained. The data was processed at the interventional technologist's workstation for generation of MIP sequences. Angled MIPs and volume rendered reformatted images were also generated at an offline 3D workstation. Stenoses are assessed in accordance with NASCET criteria unless otherwise indicated. This CT examination was performed using dose optimization techniques as appropriate, variously including the following: *Automated exposure control *Adjustment of mA and/or kV according to patient size (this includes techniques or standardized protocols for targeted exams where dose is matched to indication/reason for exam; i.e. extremities or head) *Use of iterative reconstruction technique FINDINGS: NECK CTA: -AORTIC ARCH: Normal in caliber. Moderate atheromatous changes. -GREAT VESSEL ORIGINS: 3 vessel branching pattern. There is a mild stenosis at the origin of the left subclavian artery due to soft plaque. Great vessels otherwise patent -RIGHT COMMON CAROTID ARTERY: Normal in course and caliber to the level of the bifurcation. -CERVICAL RIGHT INTERNAL CAROTID ARTERY: Calcific atherosclerotic disease of the carotid bulb and proximal internal carotid artery causing less than 50% stenosis. Remainder of the artery is normal in course and caliber into the skull base. -LEFT COMMON CAROTID ARTERY: Normal in course and caliber to the bifurcation. -CERVICAL LEFT INTERNAL CAROTID ARTERY: Mild calcific atherosclerotic disease of the carotid bulb and proximal internal carotid artery without flow-limiting stenosis. -CERVICAL RIGHT VERTEBRAL ARTERY: Codominant. Normal origin, course and caliber into the skull base. -CERVICAL LEFT VERTEBRAL ARTERY: Codominant. Limited evaluation of the origin due to focal artifact. There is a probable moderate stenosis. Otherwise, the vessel is normal in course and caliber into the skull base. OTHER, SOFT TISSUES: -Imaged superior mediastinal structures is straight small reactive appearing lymph nodes. -Imaged lung apices are clear. -Global enlargement of the thyroid with numerous poorly defined nodules and right lobe calcifications. CTA OF THE BRAIN: -INTRACRANIAL INTERNAL CAROTID ARTERIES: Calcific atherosclerotic disease of the intracranial internal carotid arteries without occlusion or flow-limiting stenosis. -RIGHT ANTERIOR CEREBRAL ARTERY: Normal A1 segment. Normal arborization of the distal segments. -LEFT ANTERIOR CEREBRAL ARTERY: Normal A1 segment. Normal arborization of the distal segments. -ANTERIOR COMMUNICATING ARTERY: Normal. -RIGHT MIDDLE CEREBRAL ARTERY: Normal M1 segment of the MCA without focal stenosis or occlusion. Normal arborization of the distal segments. -LEFT MIDDLE CEREBRAL ARTERY: Normal M1 segment of the MCA without focal stenosis or occlusion. Normal arborization of the distal segments. -RIGHT VERTEBRAL ARTERY V4: Normal in course and caliber. -LEFT VERTEBRAL ARTERY V4: Normal in course and caliber. -BASILAR ARTERY: Normal without focal stenosis or occlusion. Normal appearance of the proximal superior cerebellar arteries. Normal basilar tip. -RIGHT POSTERIOR CEREBRAL ARTERY: Normal P1 segment. Normal opacification of the distal FRESH FOOD MANAGER segments. -LEFT POSTERIOR CEREBRAL ARTERY: Normal P1 segment. Normal opacification of the distal FRESH FOOD MANAGER segments. -POSTERIOR COMMUNICATING ARTERIES: The right is diminutive. The left is not well seen. Normal opacification of the superior sagittal, straight, transverse, and sigmoid sinuses. No venous thrombosis. CT/CT angio head neck STROKE IMPRESSION: 1. Mild to moderate atheromatous plaque of the right carotid bulb with a less than 50% luminal stenosis. 2. Minimal plaque left carotid bulb with no significant luminal stenosis. 3. Motion artifact limits evaluation of the left vertebral artery origin, which is likely moderately stenotic. Both vertebral arteries are otherwise normal in course and caliber. 4. No major intracranial arterial occlusion, significant stenosis, aneurysm, or dissection. Electronically signed by: Casa Anne MD 03/04/2024 02:55 PM [facility]
--- NOTE | 2024-03-04 13:35 | ECG_ITS ---
Test Reason : STROKE Blood Pressure : */* mmHG Vent. Rate : 88 BPM Atrial Rate : 256 BPM P-R Int : * ms QRS Dur : 92 ms QT Int : 374 ms P-R-T Axes : * 57 35 degrees QTcB Int : 452 ms Atrial flutter with variable A-V block Abnormal ECG When compared with ECG of 12-Feb-2024 13:38, No significant change was found Referred By: Erin Rios Electronically Signed By: EVITA SUTTON
[2024-03-04 13:38] VITALS: BP 129/67; PULSE 89; PULSE 90; RESP 18; TEMP 36.4; O2SAT 99; BMI 40.1
--- NOTE | 2024-03-04 13:53 | ED.GENADULT ---
HPI - General Adult General Chief complaint: Stroke Stated complaint: STROKE? GI BLEED Time Seen by Provider: 03/04/24 13:34 History of Present Illness ED Provider: Dr. Rios HPI narrative: 63 y/o F patient; PMH atrial fibrillation on Eliquis, hx TIA, HLD, HTN, mood disorder, morbid obesity; presents from home via EMS with report of new speech abnormalities. The patient states she was recently admitted to the hospital from 02/11 - 02/13 for new onset atrial fibrillation/flutter. She was started on Eliquis at that time. She was discharged to home but states she never really felt better. On Wednesday 03/01 she developed bright red rectal bleeding. She spoke with her Cover Assembler who stopped her Eliquis. Today her Cover Assembler called her twice to check in. When they spoke the patient said she was recommended to call 911. Unclear why this recommendation was made. EMS arrived and noticed word finding difficulty with slurred speech. The patient states she lives alone and is uncertain how long she has had these symptoms. She did not notice them until EMS informed her of their concerns. She does endorse a mild right sided headache. She otherwise denies: abdominal pain, falls or head trauma, nausea/vomiting, fever or chills. Patient does have halting speech however no significant aphasia or dysarthria noted. Patient seen immediately as she was EMS activated code stroke. Patient sent to CT scanner due to risk of intra-cranial hemorrhage. Related Data Home Medications ?Medication ?Instructions ?Recorded ?Confirmed alprazolam 2 mg tablet 2 mg PO BEDTIME 02/15/21 02/12/24 epinephrine 0.3 mg/0.3 mL 0.3 mg IM Q4H PRN Anaphylaxis 02/15/21 02/12/24 injection, auto-injector etodolac 500 mg tablet 500 mg PO BID PRN Migraines 02/15/21 02/12/24 trazodone 100 mg tablet 100 mg PO BEDTIME 02/15/21 02/12/24 albuterol sulfate 90 mcg/actuation 1 inh inhalation QID PRN Shortness 02/10/22 02/12/24 aerosol inhaler (Ventolin HFA) Of Breath Or Wheezing cetirizine 10 mg tablet 10 mg PO DAILY PRN allergies 02/10/22 02/12/24 atorvastatin 20 mg tablet 20 mg PO DAILY 05/16/23 02/12/24 multivitamin with folic acid 400 1 tab PO DAILY 10/30/23 02/12/24 mcg tablet (Daily-Trinity (with folic acid)) carbidopa 25 mg-levodopa 100 mg 1 tab PO BEDTIME 02/12/24 02/12/24 tablet pregabalin 150 mg capsule 150 mg PO BID 02/12/24 02/12/24 lisinopril 20 mg tablet 20 mg PO DAILY 02/28/24 02/28/24 Previous Rx's ?Medication ?Instructions ?Recorded Door alarm #2 ea 02/15/21 Laser alarm #1 ea 02/15/21 vitamin B complex (Vitamins B 1 cap PO DAILY 90 days #90 caps 07/14/21 Complex capsule) blood pressure monitor #1 ea 08/16/22 cane #1 ea 08/16/22 Cane tips #1 ea 03/06/23 back brace #1 ea 03/06/23 cane #1 ea 03/06/23 walker (Ultra-Light Rollator misc) #1 ea 03/06/23 simethicone 180 mg capsule (Gas 180 mg PO BID PRN abdominal 03/07/23 Relief (simethicone)) distention #180 caps bisacodyl 5 mg tablet,delayed 10 mg (2 x 5 mg) PO BEDTIME #180 10/30/23 release (Dulcolax (bisacodyl)) tabs magnesium citrate (Citrate of 150 ml PO DAILY PRN constipation 10/30/23 Magnesia oral) #296 mL prucalopride 2 mg tablet 2 mg PO DAILY #30 tabs 10/30/23 (Motegrity) docusate sodium 100 mg capsule 100 mg PO BEDTIME #90 caps 01/22/24 amitriptyline 25 mg tablet 75 mg (3 x 25 mg) PO BEDTIME 30 01/30/24 days #90 tabs baclofen 10 mg tablet 20 mg (2 x 10 mg) PO BEDTIME 30 01/30/24 days #60 tabs apixaban 5 mg tablet (Eliquis) 5 mg PO BID #60 tabs 02/14/24 diltiazem HCl 240 mg 240 mg PO DAILY #30 caps 02/14/24 capsule,extended release 24 hr metoprolol tartrate 25 mg tablet 25 mg PO BID #60 tabs 02/14/24 lisinopril 10 mg tablet 10 mg PO DAILY 90 days #90 tabs 02/15/24 omeprazole 20 mg capsule,delayed 20 mg PO DAILY #90 caps 02/28/24 release Allergies Allergy/AdvReac Type Severity Reaction Status Date / Time bee venom protein (honey bee) Allergy Severe Anaphylaxis Verified 03/04/24 13:41 Penicillins Allergy Severe Unknown Verified 03/04/24 13:41 Review of Systems Review of Systems: Yes all other systems are reviewed and are negative Neurologic: Denies Sensory deficit (Neuro) [facility] Past Medical History Attestation statement: The following information was validated with the patient. 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) Alcohol intake: current Alcohol intake frequency: a few times a week Patient Tobacco Use Status: Current everyday Tobacco user Cigarettes Per Day: 5 Smoked in Last 30 Days: Yes Use of substances other than those prescribed or required for medical reasons: No Advance Directives: Yes Advance Directives on File: Yes Advance Directives Date on File: 02/16/24 Do you have a plan to hurt others: No Plan Patient : No service: No Physical Exam ED Vital Signs: Vital Signs - 24 hr 03/04/24 13:38 Temperature 97.6 F Pulse Rate 89 Respiratory Rate 18 Blood Pressure 129/67 Pulse Oximetry 99 Oxygen Delivery Method Room Air BMI result Body Mass Index 40.1 Patient is afebrile and hemodynamically stable. Const General: cooperative Orientation/consciousness: patient oriented x3 HENMT Head: Yes normal to inspection and Yes atraumatic Eyes General: appearance normal, both eyes and all related structures Pupils: Equal, round and reactive pupils present EOM: EOMs intact bilaterally Neck Neck: Yes normal visual inspection, Yes full ROM, Yes supple and No tender Chest Chest palpation & inspection: normal inspection of the chest and normal palpation of entire chest wall Resp Effort & Inspection: normal respiratory effort, able to speak in complete sentences, no cough and no respiratory distress Auscultation: clear to auscultation bilaterally Cardio Rate: regular rate Rhythm: regular rhythm Peripheral pulses: Peripheral pulses 2+ throughout GI Inspection: Yes normal to inspection, No Abdominal wall edema and No distended Palpation (GI): Soft to palpation, not firm, nontender, no guarding and not rigid Auscultation: normal bowel sounds Back/Spine/Pelvis Back: No back tenderness Neuro General: patient oriented x3 Cranial nerves: Yes Equal, round and reactive pupils present Speech: Other speech findings present (Neuro) (Mildlslw hating speech without aphasia or dysarthria) Motor exam (neuro): 5/5 motor strength present throughout Sensory Exam: No Sensory deficit (Neuro) NIH Stroke Scale Internal: Other (Unknown time of symptom onset ) Level of Consciousness: Alert Level of Consciousness Questions: Answers both questions correctly Level of Consciousness Commands: Performs both tasks correctly Best Gaze: Normal Visual: No visual loss Facial Palsy: Normal Motor Arm (Right): No drift Motor Arm (Left): No drift Motor Leg (Right): No drift Motor Leg (Left): No drift Limb Ataxia: Absent Sensory: Normal Best Language: No aphasia Dysarthia: Normal Extinction and Inattention: No abnormality Score: 0 Course Course Course Narrative: Patient is afebrile and hemodynamically stable. NIHSS 0. Patient states she lives alone - she was informed to call 911 by her supervisor fur floor worker on the phone today. However patient does not know how long she has had speech abnormalities. EMS noted the speech abnormalities. Halting speech noted in the emergency department without significant aphasia or dysarthria. CT Head unremarkable for acute pathology. CTA unremarkable for acute pathology. CT Abdomen/Pelvis unremarkable for acute pathology. CXR unremarkable for acute pathology. I spoke with patient's supervisor fur floor worker. They confirmed they recommended the patient attend the emergency department to have her blood counts checked given the degree of bleeding she was describing. There was no concern on Monday or Monday (today) regarding the patient having speech abnormalities. Patient was seen by her therapist this morning and her son. Her Cover Assembler recommended the patient's son drive her to the hospital but the patient declined and instead had her son drop her off and then called 911 herself. Patient is not eligible for tnk given NIHSS 0, concern for GI bleed, unclear time of symptom onset, and recent eliquis use. However it appears that patient's speech is likely her baseline. No concern for acute TIA CVA at this time. Regarding her abdominal cramping and concern for GI bleed, patient's blood counts are fine. Patient's supervisor fur floor worker recommended continuing eliquis and follow up with them in the office out-patient. Plan: Discharge to home with PCP and Cardiology followup Return precautions given Medications Administered Discontinued Medications Generic Name Dose Route Start Last Admin Trade Name Freq PRN Reason Stop Dose Admin Iohexol 100 ml 03/04/24 14:02 03/04/24 14:02 Iohexol 350 Mg/Ml 100 Ml Infus..Btl IV 03/04/24 14:03 85 ml ONCE ONE Administration Medical Decision Making Lab Data 03/04/24 14:35 03/04/24 14:35 Labs: Lab Results 03/04/24 03/04/24 Range/Units 14:06 14:35 WBC 8.3 (4.8-10.8) X10*3/uL RBC 4.31 (4.20-5.50) X10*6/uL Hgb 14.4 (12.0-16.0) g/dl Hct 43.0 (37.0-47.0) % MCV 99.8 H (80.0-98.0) fL MCH 33.4 H (27.0-33.0) pg MCHC 33.5 (31.0-35.0) g/dl RDW 14.8 (11.0-16.0) % Plt Count 187 (160-400) X10*3/uL MPV 12.8 H (9.4-12.3) fL Immature Gran % (Auto) 0.5 H (0.0-0.4) % Neut % (Auto) 53.8 (45-73) % Lymph % (Auto) 33.0 (20-40) % [place] % (Auto) 9.6 (2-11) % Eos % (Auto) 2.3 (0-4) % Baso % (Auto) 0.8 (0-2) % Lymph # (Auto) 2.7 (1.2-4.9) X10*3/uL [place] # (Auto) 0.8 (0.1-1.2) X10*3/uL Eos # (Auto) 0.2 (0.0-0.4) X10*3/uL Baso # (Auto) 0.1 (0.0-0.2) X10*3/uL Abs Immat Gran (auto) 0.04 H (0.00-0.03) X10*3/uL Absolute Neuts (auto) 4.5 (2.0-8.3) x10*3/uL Absolute Nucleated RBC 0.000 (0.0-0.012) X10*3/uL Nucleated RBC % (auto) 0.0 (0.0-0.2) /100WBC PT 11.9 (10.9-12.4) SEC Whole Blood PT 12.3 (11.1-13.5) sec INR 1.0 (0.9-1.1) Whole Blood INR 1.0 (0.9-1.1) Sodium 140 (135-145) mmol/L Potassium 3.9 (3.3-5.1) mmol/L Chloride 109 H (96-108) mmol/L Carbon Dioxide 28 (22-29) mmol/L Anion Gap 7 L (12-20) BUN 8 L (9-16) mg/dL Creatinine 0.73 (0.5-1.4) mg/dL Estim Creat Clear Calc 101.7 Estimated GFR > 60 POC Glucose 129 H (60-115) mg/dL Random Glucose 112 (60-115) mg/dL Estimat Average Glucose 120 mg/dL Hemoglobin A1c % 5.8 (<6.0) % Lactic Acid 0.9 (0.5-2.0) mmol/L Calcium 8.8 D (8.4-10.2) mg/dL Total Bilirubin 0.3 (0.0-1.0) mg/dL Direct Bilirubin 0.1 (0.0-0.5) mg/dL AST 73 H (5-31) U/L ALT 91 H (0-31) U/L Alkaline Phosphatase 115 (39-117) U/L Total Protein 7.3 (6.5-8.0) g/dL Albumin 3.4 L (3.5-5.0) g/dL Triglycerides 291 H (<150) mg/dL Cholesterol 151 (<200) mg/dL LDL Cholesterol, Calc 35 (<100) mg/dL HDL Cholesterol 58 (>40) mg/dL Lipase 15 (8-78) U/L TSH 0.51 (0.32-4.0) uIU/mL Ethyl Alcohol < 10 mg/dL Independent Interpretation I performed an independent interpretation of an: EKG Interpretation: A flutter 88BPM Radiology Impression Discussion of test interpretation with radiology: I have reviewed the radiologist's reading. Radiologist Impression: Report Number: [id number]: Total DLP = 708.00 mGy-cm EXAMINATION: CT HEAD WITHOUT CONTRAST (STROKE PROTOCOL) CLINICAL INFORMATION: Stroke protocol. Change in speech. 63-year-old female. COMPARISON: None available. TECHNIQUE: Contiguous axial imaging was performed from the skull base to vertex without intravenous administration of contrast. This CT examination was performed using dose optimization techniques as appropriate, variously including the following: *Automated exposure control *Adjustment of mA and/or kV according to patient size (this includes techniques or standardized protocols for targeted exams where dose is matched to indication/reason for exam; i.e. extremities or head) *Use of iterative reconstruction technique FINDINGS: There is no evidence of intracranial hemorrhage or extra-axial fluid collection. There is no mass effect, or edema. No CT evidence of acute territorial infarct. Ventricles, sulci, and cisterns are normal in size and configuration for patient age. No hydrocephalus. No midline shift. Negative hyperdense MCA sign. Negative insular ribbon sign. Chronic appearing tiny old lacunar infarcts noted bilateral anterior gangliocapsular regions. Otherwise, no significant white matter abnormalities. Partial empty sella noted. Mild atheromatous calcification of the bilateral carotid siphons and V4 segments vertebral arteries bilaterally. Globes and orbital contents image normally. No extracranial soft tissue abnormalities. The paranasal sinuses, mastoid air cells, and tympanic cavities are normally aerated. No suspicious bony abnormalities. CT/CT head for STROKE IMPRESSION: No acute intracranial abnormality. Electronically signed by: Casa Anne MD 03/04/2024 02:32 PM [facility] EXAMINATION: CT ABDOMEN AND PELVIS WITH CONTRAST CLINICAL INFORMATION: GI bleed. COMPARISON: None available. TECHNIQUE: Multidetector volumetric images were obtained from the superior aspect of the liver through the pubic symphysis following administration 85 mL of Omnipaque 350 intravenous contrast. Sagittal and coronal reformatted images were obtained on the technologist's workstation. Oral contrast: No This CT examination was performed using dose optimization techniques as appropriate, variously including the following: *Automated exposure control *Adjustment of mA and/or kV according to patient size (this includes techniques or standardized protocols for targeted exams where dose is matched to indication/reason for exam; i.e. extremities or head) *Use of iterative reconstruction technique DLP: 2407 mGy/cm. FINDINGS: LUNG BASES: There is minimal scarring/atelectasis in lung bases. The heart size is normal. LIVER, GALLBLADDER, AND BILIARY TREE: The liver is enlarged in size measuring 20 cm in craniocaudad length. It has normal shape and and attenuation. No focal hepatic lesion or biliary ductal dilatation is present. The gallbladder is unremarkable with no evidence of radiopaque gallstones, gallbladder wall thickening, or obvious pericholecystic inflammatory changes. PANCREAS: Unremarkable. SPLEEN: Unremarkable. ADRENAL GLANDS: There is a 9 mm left adrenal nodule, too small to correctly characterize. The right adrenal gland is unremarkable. KIDNEYS AND URETERS: The kidneys are normal in size, shape, and attenuation. No hydronephrosis, hydroureter, or calculi seen. No perinephric stranding. BLADDER: Unremarkable. GASTROINTESTINAL TRACT: Visualized stomach appears unremarkable. The small bowel loops are normal caliber. Scattered stool and gas is seen in colon without distention. The ileocecal junction appears normal. Appendix is likely normal. No fat stranding, free air or free fluid seen. ABDOMINAL WALL: No significant hernia is appreciated. LYMPH NODES: Normal. VASCULAR: Unremarkable. PELVIC VISCERA: The uterus is surgically absent. There is no free fluid or free air. OSSEOUS STRUCTURES: There is grade 1 anterolisthesis L3 over L4 with mild loss of L3-4 disc height. Mild degenerative disc changes L5-S1, L4-5 disc levels [address]/CT abdomen pelvis w IV con IMPRESSION: No acute intra-abdominal process seen. Mild constipation. Hepatomegaly without focal lesion. Bibasilar atelectasis/scarring. Fleischner guidelines were followed. Electronically signed by: Juan Alanis MD 03/04/2024 02:43 PM [facility] EXAMINATION: CT ANGIOGRAM HEAD AND NECK CLINICAL INFORMATION: Suspect stroke. COMPARISON: No prior CT angiography. TECHNIQUE: Noncontrast axial imaging of the head was performed. This was followed by test bolus sequences and head and neck intravenous bolus administration 85 mL of Omnipaque 350 contrast. Helical imaging was performed in the axial plane from the aortic arch to the skull vertex. A [address] head was also obtained. The data was processed at the generation engineering technologist's workstation for generation of MIP sequences. Angled MIPs and volume rendered reformatted images were also generated at an offline 3D workstation. Stenoses are assessed in accordance with NASCET criteria unless otherwise indicated. This CT examination was performed using dose optimization techniques as appropriate, variously including the following: *Automated exposure control *Adjustment of mA and/or kV according to patient size (this includes techniques or standardized protocols for targeted exams where dose is matched to indication/reason for exam; i.e. extremities or head) *Use of iterative reconstruction technique FINDINGS: NECK CTA: -AORTIC ARCH: Normal in caliber. Moderate atheromatous changes. -GREAT VESSEL ORIGINS: 3 vessel branching pattern. There is a mild stenosis at the origin of the left subclavian artery due to soft plaque. Great vessels otherwise patent -RIGHT COMMON CAROTID ARTERY: Normal in course and caliber to the level of the bifurcation. -CERVICAL RIGHT INTERNAL CAROTID ARTERY: Calcific atherosclerotic disease of the carotid bulb and proximal internal carotid artery causing less than 50% stenosis. Remainder of the artery is normal in course and caliber into the skull base. -LEFT COMMON CAROTID ARTERY: Normal in course and caliber to the bifurcation. -CERVICAL LEFT INTERNAL CAROTID ARTERY: Mild calcific atherosclerotic disease of the carotid bulb and proximal internal carotid artery without flow-limiting stenosis. -CERVICAL RIGHT VERTEBRAL ARTERY: Codominant. Normal origin, course and caliber into the skull base. -CERVICAL LEFT VERTEBRAL ARTERY: Codominant. Limited evaluation of the origin due to focal artifact. There is a probable moderate stenosis. Otherwise, the vessel is normal in course and caliber into the skull base. OTHER, SOFT TISSUES: -Imaged superior mediastinal structures is straight small reactive appearing lymph nodes. -Imaged lung apices are clear. -Global enlargement of the thyroid with numerous poorly defined nodules and right lobe calcifications. CTA OF THE BRAIN: -INTRACRANIAL INTERNAL CAROTID ARTERIES: Calcific atherosclerotic disease of the intracranial internal carotid arteries without occlusion or flow-limiting stenosis. -RIGHT ANTERIOR CEREBRAL ARTERY: Normal A1 segment. Normal arborization of the distal segments. -LEFT ANTERIOR CEREBRAL ARTERY: Normal A1 segment. Normal arborization of the distal segments. -ANTERIOR COMMUNICATING ARTERY: Normal. -RIGHT MIDDLE CEREBRAL ARTERY: Normal M1 segment of the MCA without focal stenosis or occlusion. Normal arborization of the distal segments. -LEFT MIDDLE CEREBRAL ARTERY: Normal M1 segment of the MCA without focal stenosis or occlusion. Normal arborization of the distal segments. -RIGHT VERTEBRAL ARTERY V4: Normal in course and caliber. -LEFT VERTEBRAL ARTERY V4: Normal in course and caliber. -BASILAR ARTERY: Normal without focal stenosis or occlusion. Normal appearance of the proximal superior cerebellar arteries. Normal basilar tip. -RIGHT POSTERIOR CEREBRAL ARTERY: Normal P1 segment. Normal opacification of the distal REPAIRER AND CHECKER segments. -LEFT POSTERIOR CEREBRAL ARTERY: Normal P1 segment. Normal opacification of the distal REPAIRER AND CHECKER segments. -POSTERIOR COMMUNICATING ARTERIES: The right is diminutive. The left is not well seen. Normal opacification of the superior sagittal, straight, transverse, and sigmoid sinuses. No venous thrombosis. CT/CT angio head neck STROKE IMPRESSION: 1. Mild to moderate atheromatous plaque of the right carotid bulb with a less than 50% luminal stenosis. 2. Minimal plaque left carotid bulb with no significant luminal stenosis. 3. Motion artifact limits evaluation of the left vertebral artery origin, which is likely moderately stenotic. Both vertebral arteries are otherwise normal in course and caliber. 4. No major intracranial arterial occlusion, significant stenosis, aneurysm, or dissection. Electronically signed by: Casa Anne MD 03/04/2024 02:55 PM [facility] EXAMINATION: XR CHEST CLINICAL INFORMATION: Screening-no further clinical information provided COMPARISON: None available. TECHNIQUE: AP portable view of the chest was obtained. FINDINGS: Cardiac silhouette is prominent but may be magnified by AP technique. Mediastinal and hilar contours appear normal. Lungs demonstrate mildly increased background bronchovascular markings, likely technical and secondary to patient habitus. Lungs otherwise clear. No effusion or pneumothorax. No focal osseous or soft tissue abnormality. Degenerative spinal changes. XR/XR chest 1V IMPRESSION: Within confines of technique and habitus, no active disease. Electronically signed by: Casa Anne MD 03/04/2024 02:58 PM EST Discharge Plan Discharge Clinical Impression: Bright red rectal bleeding Patient Disposition: Home, Self-Care Instructions: Rectal Bleeding (ED) Additional Instructions: As we discussed, you were seen today with concern for bright red rectal bleeding. Your blood counts were normal today with appropriate Hgb level. Your Cover Assembler recommended re-starting your Eliquis and closely following up with them in the office. I would encourage you to return to the emergency department for: Lightheadedness/dizziness/passing out Chest pain Shortness of breath Prescriptions: No Action vitamin B complex [Vitamins B Complex] Capsule 1 cap PO DAILY 90 Days Qty: 90 1RF (DME) Cane tips 3/4 inch See Rx Instructions .Route .MEDSUPPLY Qty: 1 0RF Rx Instructions: As directed (DME) Ultra-Light Rollator Misc See Rx Instructions .Route Qty: 1 0RF Rx Instructions: Seated 4 wheeled walker with basket (DME) cane Device See Rx Instructions .Route Qty: 1 0RF Rx Instructions: Single point cane. Use when walking (DME) back brace Misc See Rx Instructions .Route Qty: 1 0RF Rx Instructions: Lumbar back support. Use when sitting docusate sodium 100 mg capsule 100 mg PO BEDTIME Qty: 90 3RF baclofen 10 mg tablet 20 mg PO BEDTIME 30 Days Qty: 60 2RF amitriptyline 25 mg tablet 75 mg PO BEDTIME 30 Days Qty: 90 2RF omeprazole 20 mg capsule,delayed release(DR/EC) 20 mg PO DAILY Qty: 90 2RF carbidopa-levodopa 25-100 mg tablet 1 tab PO BEDTIME pregabalin 150 mg capsule 150 mg PO BID diltiazem HCl 240 mg Capsule,Extended Release 24hr 240 mg PO DAILY Qty: 30 0RF Protocol: Hold for SBP/HR < HOLD for SBP < : 90 HOLD for HR < : 60 metoprolol tartrate 25 mg Tablet 25 mg PO BID Qty: 60 0RF Protocol: Hold for SBP/HR < HOLD for SBP < : 90 HOLD for HR < : 60 Eliquis 5 mg Tablet 5 mg PO BID Qty: 60 0RF lisinopril 10 mg tablet 10 mg PO DAILY 90 Days Qty: 90 0RF alprazolam 2 mg tablet 2 mg PO BEDTIME epinephrine 0.3 mg/0.3 mL auto-injector 0.3 mg IM Q4H PRN (Reason: Anaphylaxis) etodolac 500 mg tablet 500 mg PO BID PRN (Reason: Migraines) trazodone 100 mg tablet 100 mg PO BEDTIME (DME) Door alarm See Rx Instructions .Route .MEDSUPPLY Qty: 2 0RF Rx Instructions: apply to bedroom and exit door at night (DME) Laser alarm See Rx Instructions .Route .MEDSUPPLY Qty: 1 0RF Rx Instructions: Laser alarm applied to head of bed, turn on nightly; albuterol sulfate [Ventolin HFA] 90 mcg/actuation HFA aerosol inhaler 1 inh inhalation QID PRN (Reason: Shortness Of Breath Or Wheezing) cetirizine 10 mg tablet 10 mg PO DAILY PRN (Reason: allergies) simethicone [Gas Relief (simethicone)] 180 mg capsule 180 mg PO BID PRN (Reason: abdominal distention) Qty: 180 4RF lisinopril 20 mg tablet 20 mg PO DAILY (DME) blood pressure monitor Kit See Rx Instructions .Route Qty: 1 0RF Rx Instructions: As directed (DME) cane Device See Rx Instructions .Route Qty: 1 0RF Rx Instructions: As directed atorvastatin 20 mg tablet 20 mg PO DAILY multivitamin with folic acid [Daily-Trinity (with folic acid)] 400 mcg tablet 1 tab PO DAILY bisacodyl [Dulcolax (bisacodyl)] 5 mg tablet,delayed release (DR/EC) 10 mg PO BEDTIME Qty: 180 4RF Motegrity 2 mg tablet 2 mg PO DAILY Qty: 30 2RF magnesium citrate [Citrate of Magnesia] Solution 150 ml PO DAILY PRN (Reason: constipation) Qty: 296 2RF Print Language: Turkmen
[2024-03-04] MEDS: iohexoL 350 MG/ML 100 ML INFUS..BTL IV (14:02)
[2024-03-04 14:10] LABS: Prothrombin Time Whole Bld POC 12.3 sec (11.1-13.5)
[2024-03-04 14:11] LABS: Glucose, Whole Blood 129 mg/dL (60-115)
--- NOTE | 2024-03-04 14:11 | MHC.EDTECH ---
PT result 12.3, INR Result 1.0
[2024-03-04 14:40] LABS: MANUAL DIFF FLAG NO
[2024-03-04 14:42] LABS: Basophils Absolute Auto 0.1 X10*3/uL (0.0-0.2); Basophils Percent Auto 0.8 % (0-2); Eosinophils Absolute Auto 0.2 X10*3/uL (0.0-0.4); Eosinophils Percent Auto 2.3 % (0-4); Hemoglobin 14.4 g/dl (12.0-16.0); Imm Gran Abs Auto 0.04 X10*3/uL (0.00-0.03); Imm Gran Pct Auto 0.5 % (0.0-0.4); Lymphocytes Absolute Auto 2.7 X10*3/uL (1.2-4.9); Mean Corpuscular HGB Conc 33.5 g/dl (31.0-35.0); Mean Corpuscular Hemoglobin 33.4 pg (27.0-33.0); Mean Corpuscular Volume 99.8 fL (80.0-98.0); Mean Platelet Volume 12.8 fL (9.4-12.3); Monocytes Absolute Auto 0.8 X10*3/uL (0.1-1.2); Monocytes Percent Auto 9.6 % (2-11); Neutrophils Absolute Auto 4.5 x10*3/uL (2.0-8.3); Neutrophils Percent Auto 53.8 % (45-73); Platelet Count 187 X10*3/uL (160-400); Red Blood Count 4.31 X10*6/uL (4.20-5.50); Red Cell Distribution Width 14.8 % (11.0-16.0); White Blood Count 8.3 X10*3/uL (4.8-10.8)
[2024-03-04 14:46] LABS: Prothrombin Time 11.9 SEC (10.9-12.4)
[2024-03-04 14:49] LABS: Estimated Average Glucose 120 mg/dL; Hemoglobin A1C 146.9876 umol/L; Hemoglobin A1c % 5.8 % (<6.0); Total Hemoglobin (HGBA1C) 3687.5828 umol/L
--- NOTE | 2024-03-04 14:53 | MHC.STROKE ---
Notified of potential stroke protocol in ED bed 5. Met with patient to discuss reason for ED visit. Pt reports that she was hospitalized a couple of weeks ago and started on a blood thinner for her AFib. On Monday, she reported to the hydraulic lift driver that she had been bleeding (rectally, nasally) for a couple of weeks . Patient was told to stop her Eliquis. Patient reports that today she received a phone call from the cardiology office and was told to call 911. Upon arrival to ED, patient alert and oriented x 4. Answering questions appropriately. Moving all extremties. Speaking in full clear sentences. No obvious bleeding noted. Multiple CT's completed. Provider attempting to reach cardiology to discuss the phone call they had with the patient earlier in the day. Stroke Education provided. Pamphlet given. Risk factors discussed including medical hx, medications, and diet/activity. Will continue to assist as needed.
[2024-03-04 14:55] LABS: Lactic Acid 0.9 mmol/L (0.5-2.0)
[2024-03-04 14:56] LABS: Ethanol < 10 mg/dL
[2024-03-04 15:14] LABS: Alanine Aminotransferase 91 U/L (0-31); Albumin Level 3.4 g/dL (3.5-5.0); Alkaline Phosphatase 115 U/L (39-117); Anion Gap 7 (12-20); Aspartate Amino Transferase 73 U/L (5-31); Bilirubin Direct 0.1 mg/dL (0.0-0.5); Bilirubin Total 0.3 mg/dL (0.0-1.0); Blood Urea Nitrogen 8 mg/dL (9-16); Calcium 8.8 mg/dL (8.4-10.2); Carbon Dioxide 28 mmol/L (22-29); Chloride 109 mmol/L (96-108); Cholesterol 151 mg/dL (<200); Creatinine Clr Calc Pharmacy 101.7; Estimated Glomerular Filt Rate > 60; Glucose Random 112 mg/dL (60-115); HDL Cholesterol 58 mg/dL (>40); LDL Cholesterol Calculated 35 mg/dL (<100); Lipase 15 U/L (8-78); Potassium 3.9 mmol/L (3.3-5.1); Sodium 140 mmol/L (135-145); Total Protein 7.3 g/dL (6.5-8.0); Triglycerides 291 mg/dL (<150)
[2024-03-04 15:18] LABS: Thyroid Stimulating Hormone 0.51 uIU/mL (0.32-4.0)
[2024-03-04 17:39] VITALS: BP 129/67; PULSE 89; RESP 18; TEMP 36.4; O2SAT 99
== END 2024-03-04 17:39 | disposition home or self-care (01) ==
PROVIDERS: Emergency Provider Emergency Medicine; PCP Internal Medicine
DX: K62.5 Hemorrhage of anus and rectum (principal); R47.9 Unspecified speech disturbances; R29.700 NIHSS score 0; I10 Essential (primary) hypertension; E78.5 Hyperlipidemia, unspecified; I48.20 Chronic atrial fibrillation, unspecified; F17.210 Nicotine dependence, cigarettes, uncomplicated; Z86.73 Personal history of transient ischemic attack (TIA), and cerebral infarction without residual deficits; Z79.01 Long term (current) use of anticoagulants; Z79.02 Long term (current) use of antithrombotics/antiplatelets; Z79.899 Other long term (current) drug therapy
CPT/HCPCS: 36415; 70450; 70496; 70498; 71045; 74177; 80048; 80061; 80076; 80307; 82947; 83036; 83605; 83690; 84443; 85025; 85610; 93005; 99284; Q9967

== ENCOUNTER → 2024-03-04 13:34 | Outpatient (BNV) | payer OTHER, SELFPAY | PROVIDERS: Emergency Provider Emergency Medicine; PCP Internal Medicine; Visit Provider Radiology Diagnostic Radiology | DX: I63.9 Cerebral infarction, unspecified (principal); R16.0 Hepatomegaly, not elsewhere classified | CPT/HCPCS: 70450; 70496; 70498; 71045; 74177 ==

== ENCOUNTER → 2024-03-04 13:35 | Outpatient (BNV) | payer OTHER, SELFPAY | PROVIDERS: Emergency Provider Emergency Medicine; PCP Internal Medicine; Visit Provider Internal Medicine | DX: R94.31 Abnormal electrocardiogram [ECG] [EKG] (principal) | CPT/HCPCS: 93010 ==

== ENCOUNTER → 2024-03-11 08:32 | Outpatient (BNV) | payer OTHER, SELFPAY | PROVIDERS: PCP Internal Medicine; Visit Provider Internal Medicine Cardiovascular Disease | DX: I48.92 Unspecified atrial flutter (principal); I49.3 Ventricular premature depolarization | CPT/HCPCS: 93244 ==

== ENCOUNTER 2024-03-12 08:41 | Outpatient (AMB) | payer OTHER, SELFPAY ==
--- NOTE | 2024-03-12 08:50 | A.OFFVIS_ITS ---
Vital Signs 03/12/24 08:51 Height 5 ft 6 in Weight 234 lb 9.149 oz BMI 37.9 BP 138/68 Blood Pressure Location Lt brachial Position Sitting Pulse 101 H Pulse Source Pulse Oximeter Intake Visit Reasons: ED follow up Private Branch Exchange Installer Required: No Allergies bee venom protein (honey bee) Allergy (Severe, Verified 03/12/24 10:01) Anaphylaxis Penicillins Allergy (Severe, Verified 03/12/24 10:01) Unknown Medication List - Last Reconciled 03/12/24 by JHONY Walker albuterol sulfate 90 mcg/actuation (Ventolin HFA) 1 inh inhalation QID PRN alprazolam 2 mg PO BEDTIME amitriptyline 75 mg (3 x 25 mg) PO BEDTIME 30 days apixaban (Eliquis) 5 mg PO BID atorvastatin 20 mg PO DAILY back brace Lumbar back support. Use when sitting baclofen 20 mg (2 x 10 mg) PO BEDTIME 30 days bisacodyl (Dulcolax (bisacodyl)) 10 mg (2 x 5 mg) PO BEDTIME blood pressure monitor As directed cane As directed cane Single point cane. Use when walking [Cane tips As directed] carbidopa-levodopa 25-100 mg 1 tab PO BEDTIME cetirizine 10 mg PO DAILY PRN diltiazem HCl CD 240 mg See Protocol PO DAILY docusate sodium (Colace) 100 mg PO BID 30 days docusate sodium 100 mg PO BEDTIME [Door alarm apply to bedroom and exit door at night] epinephrine 0.3 mg IM Q4H PRN etodolac 500 mg PO BID PRN hydrocortisone 1% (Preparation H Hydrocortisone) 1 appl topical QID PRN 30 days [Laser alarm Laser alarm applied to head of bed, turn on nightly; ] linaclotide (Linzess) 290 mcg PO QAM lisinopril 10 mg PO DAILY 90 days magnesium citrate (Citrate of Magnesia oral) 150 mL PO DAILY PRN metoprolol tartrate 25 mg See Protocol PO BID multivitamin with folic acid 400 mcg (Daily-Trinity (with folic acid)) 1 tab PO D AILY omeprazole 20 mg PO DAILY pregabalin 150 mg PO BID simethicone (Gas Relief (simethicone)) 180 mg PO BID PRN trazodone 100 mg PO BEDTIME vitamin B complex (Vitamins B Complex capsule) 1 cap PO DAILY 90 days walker (Ultra-Light Rollator misc) Seated 4 wheeled walker with basket HPI HPI ED follow up: Details: Cecille is a 63-year-old female past medical history of hyperlipidemia, asthma, anxiety/PTSD who was recently seen in Cardiology due to recent TIA. At that time she was noted to have atrial flutter and was sent to the emergency room for evaluation. She was admitted and started on rate slowing medications as well as anticoagulation. Following her discharge she did call our office and report rectal bleeding. She again was seen in the emergency room last week and her blood counts were noted to be stable. Her anticoagulation had been briefly held then restarted. She now presents for follow-up. Today she reports that she has not been feeling well. She says she has no memory of when she stayed in the hospital early February. She has not had any new neurological changes. She has a chronic tremor to her right hand. She reports random pains in her chest occurring at rest. No discomfort brought on by physical activity. She has shortness of breath with activity which is not new. She ambulates slowly with a cane. No presyncope, syncope. She will feel her heart beating fast. She continues to past blood rectally when she goes to the bathroom. She has a follow-up with GI after our appointment today. She says she has been taking her meds as directed. 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) Alcohol intake: current Alcohol intake frequency: a few times a week Patient Tobacco Use Status: Current everyday Tobacco user Cigarettes Per Day: 5 Advance Directives Date on File: 02/16/24 service: No Review of Systems Const All systems reviewed & are unremarkable except as noted in HPI and below Reports fatigue ENT Reports dizziness Card Reports chest pain, Reports chest pain at rest, Denies chest pain with activity, Denies rapid heart rate, Denies pedal edema, Denies edema, Reports leg edema, Denies lightheadedness, Denies palpitations, Denies dyspnea, Reports dyspnea on exertion and Denies orthopnea Resp Denies cough, Denies dyspnea and Reports dyspnea on exertion GI Reports hematochezia and Denies change in stool character Musc Details: tremor right hand Reports abnormal gait, Denies limited range of motion, Denies muscle cramps, Reports muscle weakness, Denies numbness, Denies radiating pain into limb, Denies stiffness and Denies tingling Neuro Reports abnormal gait, Reports dizziness, Denies numbness and Denies tingling Endo Reports fatigue and Denies palpitations Physical Exam Vital Signs: Last Vital Signs Pulse 101 H 03/12/24 08:51 BP 138/68 03/12/24 08:51 BMI result Body Mass Index 37.9 Const General: cooperative, no acute distress, well developed (obese), alert and well groomed Orientation/consciousness: patient oriented x3 Neck Neck: Yes normal visual inspection Resp Effort & Inspection: normal respiratory effort Auscultation: clear to auscultation bilaterally, no rales, no rhonchi and no wheezes Cardio Rate: regular rate Rhythm: regular rhythm Heart sounds: S1 normal heart sound present, S2 normal heart sound present, no murmurs and no rubs Neuro General: patient oriented x3 Extrem Other: ambulates with can General: Yes normal to inspection Psych Appearance: grossly normal Mental Status: mental status grossly normal Speech and movement: Normal speech and movement present Office Procedures EKG Details: Today, read by me, atrial flutter with variable AV block, lwo voltage QRS, rate 107, QTc 467ms [id number], Complete Assessment & Plan Assessment & Plan (1) New onset atrial flutter: Code(s): I48.92 - Unspecified atrial flutter Category: Medical Plan: New finding of atrial flutter on office EKG 02/12/2024. She did have a TIA type event, April 2023. She has not had known recurrent neurological events since that time. With her new finding of a flutter she was admitted to [facility] for rate control and was started on diltiazem and metoprolol. She was put on Eliquis for anticoagulation. An echocardiogram done 02/13/2024 shows EF 55-60%, no valve abnormalities, left atrium mildly dilated. Since her hospital discharge she reported having rectal bleeding. She did have an ER evaluation for this on 03/04/2024. Her labs that day showed hemoglobin 14.4, hematocrit 43. Her Eliquis had been briefly held, for 2-3 days then resumed. Today she reports that she still having issues with rectal bleeding. She has a follow-up with GI after our appointment today. It is thought that she has bleeding hemorrhoids and a colonoscopy is being planned. EKG done today is showing atrial flutter, rate 107. When she was in the ER last week her pulse rate was well controlled. At this time will have her continue on current medications including diltiazem, metoprolol for rate control. Continue Eliquis for anticoagulation. Will order a pharmacological nuclear stress test to evaluate for any underlying ischemia. She did have a sleep study back 06/2021 which showed no obstructive sleep apnea, moderate snoring. Going forward she may benefit from cardioversion. It can not be planned at this time as her Eliquis will be held for her upcoming colonoscopy. Cardiology follow-up in 3 months, sooner if needed. (2) HTN (hypertension): Code(s): I10 - Essential (primary) hypertension Category: Medical Plan: Well controlled at present. No med changes made. 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 She is being evaluated by GI today. (5) Sleep disorder, unspecified: Comment: REM sleep behavior, fatigue, snoring, excessive daytime sleepiness, ESS 12. Code(s): G47.9 - Sleep disorder, unspecified Category: Medical Plan: She follows with neurology/sleep medicine. Sleep study in 2021 showed no sleep apnea (6) TIA (transient ischemic attack): Code(s): G45.9 - Transient cerebral ischemic attack, unspecified Category: Medical Plan: TIA type event April 2023. No acute findings identified and symptoms resolved. (7) Hospital discharge follow-up: Code(s): Z09 - Encounter for follow-up examination after completed treatment for conditions other than malignant neoplasm Category: Medical Plan: As above (8) Preop cardiovascular exam: Code(s): Z01.810 - Encounter for preprocedural cardiovascular examination Category: Medical Plan: Preop for upcoming colonoscopy. No date yet. Patient can proceed with low to intermediate cardiac risk. She has a stress test ordered however it does not need to be completed prior to her procedure. She was reporting atypical symptoms. Eliquis can be held 48 hours prior to the procedure and restarted as soon as cleared by GI to do so. Continue diltiazem and metoprolol without interruption. Call/consult Cardiology if needed. Plan Time spent on chart review, documentation, interview and assessment Orders: Orders CA lexiscan stress w frank Today I48.92 - Unspecified atrial flutter NM cardiolite stress test Today I48.92 - Unspecified atrial flutter Coding Level of Care Code Est Pt Level 4 (42903) Complex EM visit Add On G2211 Diagnoses New onset atrial flutter I48.92 HTN (hypertension) I10 Anticoagulated Z79.01 Rectal bleeding K62.5 Sleep disorder, unspecified G47.9 TIA (transient ischemic attack) G45.9 Hospital discharge follow-up Z09 Preop cardiovascular exam Z01.810 CPT Codes EKG - CPT: 43311-[id number], Complete ([id number]) Time Spent (min) 30
[2024-03-12 08:51] VITALS: BP 138/68; PULSE 101; BMI 37.9
== END 2024-03-12 10:02 | disposition home or self-care (01) ==
PROVIDERS: PCP Internal Medicine; Visit Provider Nurse Practitioner Family
DX: I48.92 Unspecified atrial flutter (principal); I10 Essential (primary) hypertension; Z79.01 Long term (current) use of anticoagulants; K62.5 Hemorrhage of anus and rectum; G47.9 Sleep disorder, unspecified; G45.9 Transient cerebral ischemic attack, unspecified; Z09 Encounter for follow-up examination after completed treatment for conditions other than malignant neoplasm; Z01.810 Encounter for preprocedural cardiovascular examination
CPT/HCPCS: 93010; 99214; G2211

== ENCOUNTER → 2024-03-12 08:41 | Outpatient (BNVA) | payer OTHER, SELFPAY | PROVIDERS: PCP Internal Medicine; Visit Provider Nurse Practitioner Family | DX: Z01.810 Encounter for preprocedural cardiovascular examination (principal); K21.9 Gastro-esophageal reflux disease without esophagitis; K62.5 Hemorrhage of anus and rectum; K59.03 Drug induced constipation; K58.2 Mixed irritable bowel syndrome; R74.01 Elevation of levels of liver transaminase levels; R79.89 Other specified abnormal findings of blood chemistry; R63.5 Abnormal weight gain; R60.9 Edema, unspecified; R60.0 Localized edema; R14.0 Abdominal distension (gaseous); I48.92 Unspecified atrial flutter; I10 Essential (primary) hypertension; G47.9 Sleep disorder, unspecified; F17.210 Nicotine dependence, cigarettes, uncomplicated; Z09 Encounter for follow-up examination after completed treatment for conditions other than malignant neoplasm; Z86.73 Personal history of transient ischemic attack (TIA), and cerebral infarction without residual deficits; Z79.01 Long term (current) use of anticoagulants | CPT/HCPCS: 93005; 99212 ==

== ENCOUNTER 2024-03-28 11:11 | Outpatient (AMB) | payer OTHER, SELFPAY ==
[2024-03-28 11:14] VITALS: BP 130/84; PULSE 113; O2SAT 97
--- NOTE | 2024-03-28 11:14 | MHC.OFFVIS ---
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 Use when sitting baclofen 20 mg (2 x 10 mg) PO BEDTIME 30 days bisacodyl (Dulcolax (bisacodyl)) 10 mg (2 x 5 mg) PO BEDTIME blood pressure monitor As directed cane As directed cane Single point cane. Use when walking [Cane tips As directed] carbidopa-levodopa 25-100 mg 1 tab PO BEDTIME cetirizine 10 mg PO DAILY PRN diltiazem HCl CD 240 mg See Protocol PO DAILY docusate sodium (Colace) 100 mg PO BID 30 days docusate sodium 100 mg PO BEDTIME [Door alarm apply to bedroom and exit door at night] epinephrine 0.3 mg IM Q4H PRN etodolac 500 mg PO BID PRN hydrocortisone 1% (Preparation H Hydrocortisone) 1 appl topical QID PRN 30 days [Laser alarm Laser alarm applied to head of bed, turn on nightly; ] linaclotide (Linzess) 290 mcg PO QAM lisinopril 10 mg PO DAILY 90 days magnesium citrate (Citrate of Magnesia oral) 150 mL PO DAILY PRN metoprolol tartrate 25 mg See Protocol PO BID multivitamin with folic acid 400 mcg (Daily-Trinity (with folic acid)) 1 tab PO DAILY omeprazole 20 mg PO DAILY pregabalin 150 mg PO BID simethicone (Gas Relief (simethicone)) 180 mg PO BID PRN trazodone 100 mg PO BEDTIME vitamin B complex (Vitamins B Complex capsule) 1 cap PO DAILY 90 days walker (Ultra-Light Rollator misc) Seated 4 wheeled walker with basket HPI Comments Details: 63-yr-old female presents for f/u CRPS, tremor and migraine. Patient had a Feb 11-20[place] [facility] [place], and was d/x'd w/ new a-flutter, and is now being followed by [facility]. Her verapamil, which we were prescribing for migraine management, was changed to diltiazem. And patient was also started on Eliquis and metoprolol. She is to be scheduled for nuclear stress test. She continues to be followed closely by GI for abdominal bloating, elevated LFTs, and more recently rectal bleeding. GI recently advised her to stop Motegrityand start Linzess- though today it does not seem that patient has started Linzess. Patient states she was scheduled for colonoscopy, however this was put on hold due to new a flutter diagnosis. She recently had initial pain management consult, who raised possibility of spinal stimulator, however wanted to to see an updated C-spine MRI prior to make a formal decision. Patient was not thought to be a candidate for oral opioid therapy, due to reports of drinking 1-2 glasses of wine per night, and recently being started on Eliquis. Patient states she has not been doing well since she had a hospitalization in November for pneumonia. She further states that she does not remember any thing from her February [facility] [place], the was told that time she was swearing and argumentative- which is not like her. States she thought she possibly could have had an allergic reaction to the diltiazem drip, and this is why she did not remember anything- I did inform her that the diltiazem drip to his converted to oral diltiazem which she is currently taking. She does note that she had had conversations with her daughter during the hospitalization, though did not recall them. She did have follow-up head CT which was unremarkable, and head/neck CTA showing right cervical ICA mild-moderate calcific atherosclerosis of the carotid bulb and proximal ICA stenosis- < 50%; Left cervical ICA mild calcific atherosclerosis carotid bulb and proximal ICA without flow-limiting stenosis; left cervical vertebral artery with probable moderate stenosis; also mentioned of enlarged thyroid with poorly defined nodules and right lobe calcifications. She states she was shaking/jerking, this can make it hard for her to use her phone. She continues to need assist with ADLs, has a home health aide. She continues to have significant pain, decreased mobility. She is using a cane to walk. States previous trials of Pt were not helpful. She has gain proximally 30 lb in the past year. She is taking the carbidopa levodopa 25-100 mg 1 tab b.i.d. To his compliant with amitriptyline 75 mg q.h.s.. 07/18/2023 HPI via televideo visit: Pt states she is getting worse overall. Pt reports she had [facility] in late April for stroke and [place]. Per [facility] notes, pt had presented w/ left facial/sided weakness which self-resolved. Her work-up, brain MRI, CT/CTa, was non-acute- and was advised to undergo out-pt echocardiogram and holter- which she has not done yet. 05/02/23, Brain MRI w/o: 1. No acute/subacute infarct, mass, hemorrhage, or other acute intracranial abnormality. 2. Mild T2/FLAIR hyperintense foci in the white matter, nonspecific but most likely reflecting chronic small vessel disease. Lipid panel in April 2023- was WNL. States she is compliant w/ her statin. Her BP is at goal of < 130/80. She also notes she has been having increasing difficulty keeping her upper body upright. Her knee pops out of socket. She states her stomach is even larger. She states it makes it difficult to complete her ADLs and toilet hygiene. It also makes it difficult to bend over. She is f/b [facility]- had recent abd US and thought she was to have a colonoscopy- but has not heard. I have reached out to [facility] on this question. She needs a podiatry referal- will defer to PCP or [facility]. Pt also notes a lower body rash. 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 Bilateral posterior cervical tightness and tenderness. Right upper extremity rest and postural tremor RUE > LUE mild tone BUE bradykinesia- more so on right DTRs dulled throughout, symmetric. Generalized slowness of movements. Slow to stand, short steps, antalgic gait w/ cane. Results Reviewed Results Reviewed: 03/04/2024, CT/CT head for STROKE IMPRESSION: No acute intracranial abnormality. 03/04/2024, CT/CT angio head neck STROKE her name that you go check them in with the other phone IMPRESSION: 1. Mild to moderate atheromatous plaque of the right carotid bulb with a less than 50% luminal stenosis. 2. Minimal plaque left carotid bulb with no significant luminal stenosis. 3. Motion artifact limits evaluation of the left vertebral artery origin, which is likely moderately stenotic. Both vertebral arteries are otherwise normal in course and caliber. 4. No major intracranial arterial occlusion, significant stenosis, aneurysm, or dissection. Assessment & Plan Assessment & Plan (1) Complex regional pain syndrome type II: Comment: s/p injury at work on 12/01/15. Progressed to include BUE & BLE. Code(s): G56.40 - Causalgia of unspecified upper limb Category: Medical (2) Rash: Code(s): R21 - Rash and other nonspecific skin eruption Category: Medical (3) Gait difficulty: Code(s): R26.9 - Unspecified abnormalities of gait and mobility Category: Medical (4) TIA (transient ischemic attack): Code(s): G45.9 - Transient cerebral ischemic attack, unspecified Category: Medical (5) Spondylosis of cervical region without myelopathy or radiculopathy: Code(s): M47.812 - Spondylosis without myelopathy or radiculopathy, cervical region Category: Medical (6) Spondylolisthesis, cervical region: Code(s): M43.12 - Spondylolisthesis, cervical region Category: Medical (7) Complex regional pain syndrome type 2 of both upper extremities: Code(s): G56.43 - Causalgia of bilateral upper limbs Category: Medical Plan For h/o TIA, a-flutter dx, GI symptoms: We will check amitriptyline level. August 2023 Echocardiogram- LVEF of 55-60% without significant valve findings. September 2023 Holter- normal sinus rhythm. Continue Eliquis, metoprolol, lisinopril, diltiazem per cardiology. Reviewed most recent GI note with patient- advise patient to reach out to GI to determine status of colonoscopy. ? For sleep disorder with parasomnias- Continue safety measures. Can continue Xanax per out-side provider- we will defer to PCP for refills. ? For migraine- Continue Amitriptyline 75 mg qhs- consider decreasing upon review of amitriptyline level.. Discontinue Verapamil SR 120mg qhs- per cardiology. Discontinue etodolac prn- due to current Eliquis use. Future considerations- CGRP MAB (Emgality or Ajovy d/t no constipation ADR risk). ? For CRPS/tremor, back pain, and gait difficulty- We will order C-spine MRI to further evaluate known spondylolisthesis. Increased Sinemet 25-100mg from 1 tab b.i.d. to tid- for tremor, tone, and bradykinesia. Continue Amitriptyline 75mg qhs- consider adjusting as above. Continue Pregabalin 150mg tid. Continue to hold Tramadol 50mg prn. Walk w/ cane. Follow-up with pain management as scheduled. Patient is not interested in being referred back to PT at this time. It is unclear if patient had follow-up with previous veneer stacker for rash- no current rash symptoms, we will hold on this for now.. 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 Previous trials- Gabapentin- lost effectiveness. Tramadol- helpful, given for short courses only. ? f/u in 4-6 months or sooner prn. Orders: Orders MR cervical spine wo con 03/28/24 G56.43 - Causalgia of bilateral upper limbs, M43.12 - Spondylolisthesis, cervical region, M47.812 - Spondylosis without myelopathy or radiculopathy, cervical region Amitriptyline (Elavil), Serum 03/28/24 I48.92 - Unspecified atrial flutter Medications: Changed From carbidopa-levodopa 25-100 mg 1 tab PO BEDTIME To carbidopa-levodopa 25-100 mg 1 tab PO TID 30 days 90 tabs 6RF Discontinued metoprolol tartrate Discontinued Reason: Doctor's Order 25 mg See Protocol PO BID 60 tabs 0RF Coding Level of Care Code Est Pt Level 4 (60285) Diagnoses Complex regional pain syndrome type II G56.40 Rash R21 Gait difficulty R26.9 TIA (transient ischemic attack) G45.9 Spondylosis of cervical region without myelopathy or radiculopathy M47.812 Spondylolisthesis, cervical region M43.12 Complex regional pain syndrome type 2 of both upper extremities G56.43
== END 2024-03-28 12:11 | disposition home or self-care (01) ==
PROVIDERS: PCP Internal Medicine; Visit Provider Nurse Practitioner Family
DX: G56.40 Causalgia of unspecified upper limb (principal); R21 Rash and other nonspecific skin eruption; R26.9 Unspecified abnormalities of gait and mobility; G45.9 Transient cerebral ischemic attack, unspecified; M47.812 Spondylosis without myelopathy or radiculopathy, cervical region; M43.12 Spondylolisthesis, cervical region; G56.43 Causalgia of bilateral upper limbs
CPT/HCPCS: 99214

== ENCOUNTER → 2024-03-28 11:11 | Outpatient (BNVA) | payer OTHER, SELFPAY | PROVIDERS: PCP Internal Medicine; Visit Provider Nurse Practitioner Family | DX: G56.43 Causalgia of bilateral upper limbs (principal); G57.73 Causalgia of bilateral lower limbs; R21 Rash and other nonspecific skin eruption; R26.9 Unspecified abnormalities of gait and mobility; M47.812 Spondylosis without myelopathy or radiculopathy, cervical region; M43.12 Spondylolisthesis, cervical region; Z79.01 Long term (current) use of anticoagulants; Z86.73 Personal history of transient ischemic attack (TIA), and cerebral infarction without residual deficits | CPT/HCPCS: 99212 ==

== ENCOUNTER 2024-04-16 09:16 | Outpatient (AMB) | payer OTHER, SELFPAY ==
--- NOTE | 2024-04-16 09:39 | A.OFFVIS_ITS ---
Vital Signs 04/16/24 09:42 Height 5 ft 6 in BMI Reason not done Patient refused/unable BP 100/66 Blood Pressure Location Rt radial Position Sitting Pulse 94 Pulse Source Pulse Oximeter Pulse Oximetry (%) 94 Oxygen Delivery Method Room Air Intake Visit Reasons: 5 wk okay to book per wilber Intake Note: ESTABLISHED PATIENT for Abd bloating / pain mgmt. Chief Complaint; C/O constipation w/ BRB per rectum; varying amounts of bleeding however constant - daily. Pt states that this has been the case since she was started on eliquis. Pt reports that she is taking her medications to her knowledge but did not remember to bring her medication list to this visit as requested. Pt also reports nausea + reflux, no vomiting, and general malaise + fogginess. 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 Smaller meals and more often. Patient was encouraged to take fiber with pre and probiotics. Patient will stop Motegrity as not effective. Will start Linzess daily. Increase fluid intake and activity to promote better bowel motility. Patient will follow-up in 5 weeks and we will discuss going for colonoscopy. Examined today benign, negative for tenderness, hypoactive bowels. Patient is agreeable to this plan and verbalizes understanding of instructions. She was given the opportunity to ask questions and all questions answered. ? Thank you for allowing me to participate in her care Medications New linaclotide (Linzess) 290 mcg PO QAM 30 caps 4RF K59.00 Discontinued prucalopride (Motegrity) Discontinued Reason: Doctor's Order 2 mg PO DAILY 30 tabs 2RF K59.04 TODAY'S VISIT: Patient is here today for follow-up. Patient reports that she has not been feeling very well. Patient is unable to pinpoint on anything specific. Reports feeling tired, no energy. Patient is reporting waking up during the night time having nightmares. Waking herself from sleep, patient is talking loudly in her dreams which makes her abruptly. Patient is reporting sharp pain burning in her chest. Increased tremors specially during the night time, patient reports her arms flopping around . Patient spoke to our office staff few days ago and r eported similar symptoms and was told to go to ER. Patient has not been to ER. Today patient has been checked in for over an hour before seen. Patient checked in and then went to get an MRI. Patient denies dyspepsia, dysphagia or odynophagia. Reflux better, however she still have occasional burning in her chest. Patient reports that she is taking Dulcolax and Linzess and still has trouble moving her bowels. Occasional blood when having a stool. Patient has appointment with her enrolled nurse as well as nuclear stress test in June. We will send request for clearance before sending her for upper endoscopy and colonoscopy. 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) Alcohol intake: current Alcohol intake frequency: a few times a week Patient Tobacco Use Status: Current everyday Tobacco user Cigarettes Per Day: 5 Advance Directives: Yes Advance Directives on File: Yes Advance Directives Date on File: 02/16/24 service: No Review of Systems Const Denies weight gain and Denies weight loss ENT Reports no additional complaints, Denies dysphagia and Denies odynophagia Card Reports no additional complaints Resp Reports no additional complaints GI Reports abdominal pain (EPIGASTRIC), Denies belching, Denies melena, Reports bloating, Reports hematochezia (Occasional when constipated), Reports constipation, Denies dysphagia, Denies excessive flatus, Denies dyspepsia, Denies heartburn, Denies diarrhea, Denies loose stools, Denies nausea, Denies odynophagia and Denies vomiting Reports no additional complaints Musc Reports no additional complaints Neuro Reports no additional complaints Psych Reports no additional complaints Endo Reports no additional complaints Physical Exam Vital Signs: Last Vital Signs Pulse 94 04/16/24 09:42 BP 100/66 04/16/24 09:42 Pulse Ox 94 04/16/24 09:42 Oxygen Delivery Method Room Air 04/16/24 09:42 Const General: healthy appearing and no acute distress Nutritional Appearance: obese Orientation/consciousness: patient oriented x3 Resp Effort & Inspection: normal respiratory effort, able to speak in complete sentences, no tracheal deviation and symmetric chest movement Auscultation: clear to auscultation bilaterally Cardio Rate: regular rate GI Inspection: Yes normal to inspection, No distended and Yes obesity Palpation (GI): Soft to palpation, not firm, nontender and No hepatosplenomegaly present Auscultation: Hypoactive bowel sounds present General: Yes no CVA tenderness Back/Spine/Pelvis Back: no CVA tenderness Skin General skin exam: elasticity normal, turgor normal and dry skin Neuro General: patient oriented x3 Extrem Other: Bilateral lower extremity edema, 2+ pitting bilaterally, positive pedal pulses Psych Appearance: grossly normal Mental Status: mental status grossly normal Assessment & Plan Assessment & Plan (1) Rectal bleeding: Code(s): K62.5 - Hemorrhage of anus and rectum Category: Medical (2) Constipation: Code(s): K59.00 - Constipation, unspecified Category: Medical Qualifiers: Constipation type: drug induced constipation Qualified Code(s): K59.03 - Drug induced constipation (3) GERD (gastroesophageal reflux disease): Code(s): K21.9 - Gastro-esophageal reflux disease without esophagitis Qualifiers: Esophagitis presence: esophagitis presence not specified Qualified Code(s): K21.9 - Gastro-esophageal reflux disease without esophagitis (4) IBS (irritable bowel syndrome): Code(s): K58.9 - Irritable bowel syndrome, unspecified Qualifiers: Irritable bowel syndrome type: with constipation Qualified Code(s): K58.1 - Irritable bowel syndrome with constipation (5) Transaminitis: Code(s): R74.01 - Elevation of levels of liver transaminase levels (6) Elevated ferritin level: Code(s): R79.89 - Other specified abnormal findings of blood chemistry (7) Weight gain with edema: Code(s): R63.5 - Abnormal weight gain; R60.9 - Edema, unspecified (8) Bilateral lower extremity edema: Code(s): R60.0 - Localized edema (9) Abdominal bloating: Code(s): R14.0 - Abdominal distension (gaseous) Plan Patient continues to have constipation. She can take Dulcolax with stool softener. Patient was in encouraged to increase fluid intake and activity to promote better bowel motility. Patient continues to have acid reflux. Reports burning like sensation in her chest and burping. Will change PPI to Nexium. Patient was encouraged to avoid dietary triggers and late night snacking. Staying upright for minimum 3 hours after meals discussed with patient. Patient reports nightmares related to PTSD. Patient was encouraged to go and speak to her therapist. Patient does not have shortness of breath or chest pain. Reports generalized weakness. Patient feels like she should be admitted to the hospital. Patient was encouraged to go to ED to get further evaluation. Patient never went to ED after she spoke with our staff few days ago. Her symptoms have been ongoing since February. Ask patient if she is seeing therapist or psychiatrist due to her PTSD and depression. Patient states that she has a therapist that she sees regularly. Patient will be seeing enrolled nurse in June. She is going for nuclear stress test in June as well. We will ask for risk stratification before sending her for upper endoscopy and colonoscopy. Patient will return to the office in 2 months to discuss going for colonoscopy and upper endoscopy. . She is agreeable to current plan of care and verbalizes understanding of instructions. She was given the opportunity to ask questions and all questions answered. Thank you for allowing me to participate in her care Patient was wheeled down in a wheelchair by medical resident to sign into ER for more in that evaluation. Medications: New docusate sodium 100 mg PO BEDTIME 90 caps 3RF K59.00 - Constipation, unspecified esomeprazole magnesium (Nexium) 40 mg PO DAILY 30 caps 5RF K21.9 - Gastro- esophageal reflux disease without esophagitis Refilled bisacodyl (Dulcolax (bisacodyl)) 10 mg (2 x 5 mg) PO BEDTIME 180 tabs 4RF magnesium citrate (Citrate of Magnesia oral) 150 mL PO DAILY PRN 296 mL 2RF constipation K59.00 - Constipation, unspecified Discontinued omeprazole Discontinued Reason: Doctor's Order 20 mg PO DAILY 90 caps 2RF Coding Level of Care Code Est Pt Level 4 (41147) Complex EM visit Add On G2211 Diagnoses Rectal bleeding K62.5 Drug-induced constipation K59.03 Constipation type: drug induced constipation Gastroesophageal reflux disease, unspecified whether esophagitis present K21.9 Esophagitis presence: esophagitis presence not specified Irritable bowel syndrome with constipation K58.1 Irritable bowel syndrome type: with constipation Transaminitis R74.01 Elevated ferritin level R79.89 Weight gain with edema R63.5; R60.9 Bilateral lower extremity edema R60.0 Abdominal bloating R14.0 Time Spent (min) 40 Comment 25 minute spent with patient and additional 15 minutes spent reviewing her records
[2024-04-16 09:42] VITALS: BP 100/66; PULSE 94; O2SAT 94
== END 2024-04-16 11:09 | disposition home or self-care (01) ==
LOC: HO.HGI 09:17
PROVIDERS: PCP Internal Medicine; Visit Provider Nurse Practitioner Family
DX: K62.5 Hemorrhage of anus and rectum (principal); K59.03 Drug induced constipation; K21.9 Gastro-esophageal reflux disease without esophagitis; K58.1 Irritable bowel syndrome with constipation; R74.01 Elevation of levels of liver transaminase levels; R79.89 Other specified abnormal findings of blood chemistry; R63.5 Abnormal weight gain; R60.9 Edema, unspecified; R60.0 Localized edema; R14.0 Abdominal distension (gaseous)
CPT/HCPCS: 99214; G2211

== ENCOUNTER 2024-04-16 09:28 | Outpatient (REF) | payer OTHER, SELFPAY ==
--- NOTE | ~2024-04-16 | MR_ITS ---
EXAMINATION: MR CERVICAL SPINE WITHOUT CONTRAST CLINICAL INFORMATION: History of Parkinson's, neck pain, tremors, and spasms in the upper extremities. COMPARISON: None. Correlation made with CT angiogram head and neck 03/04/2024. TECHNIQUE: Multiplanar multisequence MR imaging of the cervical spine was done prior to and without the administration IV gadolinium. Examination was performed on a 1.5 Oliva Siemens unit, using standard sequences. FINDINGS: CORONAL ALIGNMENT: -There is a mild levoconvex scoliosis centered at C6-7. SAGITTAL ALIGNMENT: -There is straightening of the normal lordosis. -There is a 2 mm anterolisthesis of C4 on C5. Alignment is otherwise anatomic. CRANIOCERVICAL JUNCTION/C1-2 ARTICULATIONS: -Intact and aligned. -Moderate degenerative arthritis with minimal posterior pannus formation. No craniocervical Junction narrowing. VERTEBRAL BODIES/BONE MARROW: -No fracture, compression deformity, or suspicious bone lesion. No gross bone marrow edema evident. DISCS: -Mild to moderate diffuse loss of disc height and signal, most significant C4-5 and C5-6. CERVICAL CORD: -Normal in caliber and signal throughout. There are no regions of cord impingement, expansion, or narrowing. PARAVERTEBRAL SOFT TISSUES: -Normal in appearance. No prevertebral abnormality. -Thyroid is obscured by a saturation band. VISUALIZED INTRACRANIAL STRUCTURES: -There are patchy T2 hyperintensities within the central artis, nonspecific. AXIAL DISC SPACE IMAGING: C2-C3: No significant disc bulge. Moderate to severe right hypertrophic facet changes with associated right uncinate spurring, resulting in severe right neural foraminal stenosis. The left neural foramen is patent. No central canal narrowing. C3-C4: Trace disc osteophytic bulging, without significant mass effect upon the thecal sac. Severe right right greater than left hypertrophic facet changes, mild bilateral uncinate spurring, resulting in severe right neural foraminal narrowing. There is mild left neural foraminal narrowing. C4-C5: Trace disc bulging present, minimally indenting upon the thecal sac but not contacting the cord. No significant central canal narrowing. Moderate to severe hypertrophic degenerative facet changes bilaterally, with bilateral uncinate spurring, resulting in moderate to severe bilateral neural foraminal stenosis. C5-C6: Shallow disc osteophytic bulging present, indenting on the ventral thecal sac but not contacting the cord. There is minimal central canal stenosis. There is severe right greater than left hypertrophic degenerative facet change, with moderate bilateral uncinate spurring, resulting in severe right and moderate left neural foraminal stenosis. C6-C7: Minimal disc bulging present, without significant mass effect upon the thecal sac. Mild bilateral uncinate spurs and mild bilateral facet spurring, contributing to bilateral mild neural foraminal narrowing. Minimal central canal narrowing. There are small nerve root sleeve cysts in both neural foramen. C7-T1: There is no central canal or significant neural foraminal narrowing. Mild facet degeneration bilaterally right greater than left. T1-T4: There is no central canal or significant neural foraminal encroachment. MR/MR cervical spine wo con IMPRESSION: 1. Mild to moderate multilevel cervical spondylosis most significant spanning C2-3 through C5-6. See above for details. 2. There is no significant central canal narrowing, cord impingement, flattening, or signal abnormality. Electronically signed by: Casa Anne MD 04/16/2024 03:15 PM EDT
== END 2024-04-16 09:29 | disposition home or self-care (01) ==
LOC: HO.MRI 09:28
PROVIDERS: PCP Internal Medicine; Visit Provider Nurse Practitioner Family
DX: Z13.89 Encounter for screening for other disorder (principal)
CPT/HCPCS: 72141

== ENCOUNTER 2024-04-16 11:18 | Emergency (ER) | payer OTHER, SELFPAY ==
[2024-04-16] VITALS (10 sets, daily range): BP systolic 95–169; BP diastolic 38–110; PULSE 78–96; RESP 13–20; TEMP 36.3–37.3; O2SAT 95–98; BMI 40.3
--- NOTE | ~2024-04-16 | US_ITS ---
CLINICAL HISTORY: RUQ pain, GB, CBD US abdomen, limited. COMPARISON: US abdomen dated 11/12/21 at 12:29 EDT Technique: Real time sonographic imaging, including color-flow imaging, was performed by the instrument engineer. Multiple customer service representative teacher static images were saved for review. FINDINGS: The gallbladder is normal in size. No cholelithiasis or sludge identified. There is a positive sonographic Myers's sign. Gallbladder wall: 2 mm, normal. Common bile duct: 7 mm, upper limits normal. No free intraperitoneal fluid identified. IMPRESSION: 1. Positive sonographic Myers's sign. Otherwise no evidence for cholecystitis. No gallbladder wall thickening or cholelithiasis. 2. Upper limits normal common bile duct. No choledocholithiasis identified. This document has been electronically signed by: Jerzy Brunner MD on 04/16/2024 18:10:24
--- NOTE | ~2024-04-16 | CT_ITS ---
EXAMINATION: CT HEAD WITHOUT IV CONTRAST HISTORY: headache. TECHNIQUE: Unenhanced helical CT of the head was performed per standard departmental protocol. Coronal and sagittal reformats of the head were also evaluated. One or more of the following techniques was used for dose reduction: Automated exposure control, adjustment of the mA and/or kV according to patient size, use of iterative reconstruction technique. DLP: 707 mGy-cm COMPARISON: Comparison is made with the prior examination dated 03/04/2024. FINDINGS: BRAIN: The brain parenchyma is unremarkable. There is normal castaneda/white differentiation. The ventricular system is normal in size and configuration. There is no mass effect or midline shift. No intra- or extra-axial fluid collections are identified. SINUSES: The visualized paranasal sinuses are clear. The mastoid air cells and middle ear cavities are well pneumatized. ORBITS: The visualized orbits are unremarkable. BONES/SOFT TISSUES: The extracranial soft tissues are unremarkable. The calvarium is intact. No suspicious lytic or sclerotic lesions. CT/CT head/brain wo IV con IMPRESSION: No acute intracranial abnormality. Electronically signed by: Yoel Yap MD 04/16/2024 12:39 PM EDT
--- NOTE | ~2024-04-16 | XR_ITS ---
EXAMINATION: XR CHEST 2 VIEWS HISTORY: shortness of breath COMPARISON: Comparison is made with the prior examination dated 03/04/2024. FINDINGS: PA and lateral views of the chest are submitted. There is scarring in the lingula. The lungs are otherwise clear. There is no pleural effusion, pneumothorax, or pulmonary vascular congestion. The heart is normal in size. The bones are intact. XR/XR chest 2V IMPRESSION: No acute cardiopulmonary abnormality. Electronically signed by: Yoel Yap MD 04/16/2024 12:31 PM EDT
--- NOTE | 2024-04-16 11:51 | ED.GENADULT ---
HPI - General Adult General Chief complaint: General Medical Stated complaint: Brain fog, dizziness, rectal bleeding Time Seen by Provider: 04/16/24 12:22 Source: patient and RN notes reviewed Mode of arrival: ambulatory Limitations: no limitations History of Present Illness ED Provider: Molly Rausch PA-C HPI narrative: This is a 63-year-old female, with a history of atrial fibrillation on Eliquis, Parkinson's, TIA, hyperlipidemia, hypertension, mood disorder, morbid obesity, who presents emergency department with multiple complaints. Patient states that since February she has been exhausted, and has had tiredness. She states that she feels worn out. She states that the symptoms have been ongoing since February - specifically since she was discharged from the hospital. She states that she has had the symptoms over the last several months, since she was discharged from the hospital in February. In February, she was seen and evaluated, and was found to be in a flutter with RVR of 135. She was discharged 2 days later, and was prescribed metoprolol, Cardizem, and was discharged on Eliquis. Patient was then seen here in the emergency department after having speech abnormalities. At that time, she had a head CT, CTA, CT abdomen and pelvis, and chest x-ray. Which were all unremarkable. She was advised to follow-up with your GI specialist and telecommunication lines repairer in regards to bloody stool that she has been experiencing asleep started on Eliquis. Patient has been routinely being followed by Lucía Andre from GI, with complaints of constipation with bright red blood per rectum. She last saw them this morning. She also reports that she has been monitoring her blood pressure over the weekend, and found to have elevated blood pressure readings 160s over 110s. She denies any current chest pain, shortness for breath, fevers, chills, abdominal pain, nausea, vomiting or diarrhea. No urinary frequency, urgency, dysuria or hematuria. No constipation. No other complaints or concerns at this time. MD complaint: multiple complaints Onset (ago): month(s) Radiation: non-radiation Severity: moderate Quality: aching Pain Consistency: constant Relieving factors: none Exacerbating factors: none Treatments prior to arrival: none Related Data Home Medications ?Medication ?Instructions ?Recorded ?Confirmed epinephrine 0.3 mg/0.3 mL 0.3 mg IM Q4H PRN Anaphylaxis 02/15/21 04/16/24 injection, auto-injector etodolac 500 mg tablet 500 mg PO BID PRN Migraines 02/15/21 04/16/24 trazodone 100 mg tablet 100 mg PO BEDTIME 02/15/21 04/16/24 albuterol sulfate 90 mcg/actuation 1 inh inhalation QID PRN Shortness 02/10/22 04/17/24 aerosol inhaler (Ventolin HFA) Of Breath Or Wheezing cetirizine 10 mg tablet 10 mg PO DAILY PRN allergies 02/10/22 04/16/24 atorvastatin 20 mg tablet 20 mg PO DAILY 05/16/23 04/17/24 multivitamin with folic acid 400 1 tab PO DAILY 10/30/23 04/16/24 mcg tablet (Daily-Trinity (with folic acid)) pregabalin 150 mg capsule 150 mg PO BID 02/12/24 04/16/24 alprazolam 2 mg tablet 2 mg PO BEDTIME PRN anxiety 04/17/24 04/17/24 metoprolol tartrate 25 mg tablet 25 mg PO BID 04/17/24 04/17/24 sennosides 8.6 mg tablet (senna) 17.2 mg PO BEDTIME PRN constipation 04/17/24 04/17/24 Previous Rx's ?Medication ?Instructions ?Recorded Door alarm #2 ea 02/15/21 Laser alarm #1 02/15/21 vitamin B complex (Vitamins B 1 cap PO DAILY 90 days #90 caps 07/14/21 Complex capsule) blood pressure monitor #1 ea 08/16/22 cane #1 ea 08/16/22 Cane tips #1 ea 03/06/23 back brace #1 03/06/23 cane #1 ea 03/06/23 walker (Ultra-Light Rollator misc) #1 ea 03/06/23 amitriptyline 25 mg tablet 75 mg (3 x 25 mg) PO BEDTIME 30 01/30/24 days #90 tabs baclofen 10 mg tablet 20 mg (2 x 10 mg) PO BEDTIME 30 01/30/24 days #60 tabs apixaban 5 mg tablet (Eliquis) 5 mg PO BID #60 tabs 02/14/24 diltiazem HCl 240 mg 240 mg PO DAILY #30 caps 02/14/24 capsule,extended release 24 hr lisinopril 10 mg tablet 10 mg PO DAILY 90 days #90 tabs 02/15/24 linaclotide 290 mcg capsule 290 mcg PO QAM #30 caps 03/12/24 (Linzess) carbidopa 25 mg-levodopa 100 mg 1 tab PO TID 30 days #90 tabs 03/28/24 tablet simethicone 180 mg capsule 180 mg PO BID PRN for abdominal 04/02/24 (Anti-Gas Ultra Strength) pain #180 caps bisacodyl 5 mg tablet,delayed 10 mg (2 x 5 mg) PO BEDTIME #180 04/16/24 release (Dulcolax (bisacodyl)) tabs docusate sodium 100 mg capsule 100 mg PO BEDTIME #90 caps 04/16/24 esomeprazole magnesium 40 mg 40 mg PO DAILY #30 caps 04/16/24 capsule,delayed release (Nexium) magnesium citrate (Citrate of 150 ml PO DAILY PRN constipation 04/16/24 Magnesia oral) #296 mL Allergies Allergy/AdvReac Type Severity Reaction Status Date / Time bee venom protein (honey bee) Allergy Severe Anaphylaxis Verified 04/16/24 11:54 Penicillins Allergy Severe Unknown Verified 04/16/24 11:54 Review of Systems Review of Systems: Yes all other systems are reviewed and are negative Constitutional: Constitutional: Reports as per [facility] Past Medical History Attestation statement: The following information was validated with the patient. 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) Alcohol intake: current Alcohol intake frequency: holidays/special occasions only Patient Tobacco Use Status: Current everyday Tobacco user Cigarettes Per Day: 5 Smoked in Last 30 Days: No Use of substances other than those prescribed or required for medical reasons: No Advance Directives: Yes Advance Directives on File: Yes Advance Directives Date on File: 02/16/24 Patient : No service: No Physical Exam ED Vital Signs: Vital Signs - 24 hr 04/17/24 14:19 04/17/24 20:45 04/17/24 21:02 Temperature 98.3 F 97.0 F Pulse Rate 101 H 95 95 Respiratory Rate 20 20 Blood Pressure 137/101 H 115/74 115/74 Pulse Oximetry 98 94 Oxygen Delivery Method Room Air Room Air 04/18/24 05:30 Temperature 97 F Pulse Rate 98 Respiratory Rate 18 Blood Pressure 157/72 H Pulse Oximetry 99 Oxygen Delivery Method Room Air BMI result Body Mass Index 40.3 Const General: cooperative, comfortable and no acute distress Orientation/consciousness: patient oriented x3 Limitations: no limitations HENMT Head: Yes normal to inspection, Yes normocephalic and Yes atraumatic Ears: hearing grossly normal bilaterally General nose exam: Normal external nose present Face and sinus: Yes normal facial exam Mouth: Normal oral and palatal mucosa present, oropharynx normal and moist mucous membranes Throat: Yes posterior oropharynx normal Eyes General: appearance normal, both eyes and all related structures Eyelids: Yes eyelids normal Conjunctivae: conjunctivae normal Sclerae: sclerae normal Pupils: Equal, round and reactive pupils present EOM: EOMs intact bilaterally Neck Neck: Yes normal visual inspection, Yes full ROM and Yes no lymphadenopathy Lymphatic: no lymphadenopathy noted Chest Chest palpation & inspection: normal inspection of the chest Resp Effort & Inspection: normal respiratory effort and able to speak in complete sentences Auscultation: clear to auscultation bilaterally, no crackles, no rales, no rhonchi and no wheezes Cardio Rate: regular rate Rhythm: regular rhythm Heart sounds: S1 normal heart sound present and S2 normal heart sound present GI Inspection: Yes normal to inspection Skin General skin exam: no rashes or lesions noted Trauma: no lacerations or abrasions Wounds: no wounds Neuro Other: Resting tremor on the right hand noted General: patient oriented x3 and moves all extremities Cranial nerves: Yes Equal, round and reactive pupils present Cognition (Neuro): normal cognition Motor exam (neuro): 5/5 motor strength present throughout and Pronator motor function not present Extrem Other: 5/5 strength in lower extremities bilaterally. General: Yes normal to inspection Right upper extremity: normal to inspection Left upper extremity: normal to inspection Right lower extremity: normal to inspection Left lower extremity: normal to inspection NIH Stroke Scale Internal: Initial- Upon Arrival Level of Consciousness: Alert Level of Consciousness Questions: Answers both questions correctly Level of Consciousness Commands: Performs both tasks correctly Best Gaze: Normal Visual: No visual loss Facial Palsy: Normal Motor Arm (Right): No drift Motor Arm (Left): No drift Motor Leg (Right): No drift Motor Leg (Left): No drift Limb Ataxia: Absent Sensory: Normal Best Language: No aphasia Dysarthia: Normal Extinction and Inattention: No abnormality Score: 0 Course Course Course Narrative: RME, this is a rapid medical exam performed by Daniel Babb please refer to primary provider for complete H&P- 63 year old female presents for evaluation of multiple complaints including chest pain, headache, shortness of breath. She reports rectal bleeding. She reports that she has had rectal bleeding ever since being started on Eliquis which was done 2 months ago after being diagnosed with AFib. Plan for labs, CT scan of the brain, chest x-ray. Reevaluation(s) Reevaluation #1: Overall workup today was reassuring, labs with no leukocytosis, stable H&H, chemistry with no significant electrolyte derangement. Upon my reassessment, patient reporting of right upper quadrant pain, with tenderness palpation, will obtain ultrasound of the right upper quadrant to rule out any acute pathology. TSH is low at 0.2, chest x-ray and head CT unremarkable. EKG revealing atrial fibrillation, which patient has a history of. I discussed at length that patient is coming in with multiple complaints that has been ongoing for the last several months. She states primarily her biggest concern is feeling very generalized weak, and states that she feels as though that she has had problems with memory. She states that she would be going about her day, and states that she has times in her day where she does not remember anything. Patient states that she feels so weak that she is unable to perform her activities of daily living. She states that she was unsure if the medications that she was started on > diltiazem, metoprolol, Eliquis, has been the cause of her to feel the symptoms. Upon re-evaluation, she does report now experiencing right upper quadrant pain. Mildly tender to palpation. Will obtain ultrasound of the right upper quadrant, repeat troponin. 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 Patient will likely need PT Case Management evaluation however awaiting medical workup. sign-out given to my colleague, Grace Dobbins PA-C pending results. Time: 16:33 Reevaluation #2: I Tania Dobbins PA-C have accepted care of the patient and signed out pending ultrasound and hold over for case management PT due to the patient's weakness requiring help with her activities of daily living I have independently reviewed the following tests: Ultrasound right upper quadrant:FINDINGS: The gallbladder is normal in size. No cholelithiasis or sludge identified. There is a positive sonographic Myers's sign. Gallbladder wall: 2 mm, normal. Common bile duct: 7 mm, upper limits normal. No free intraperitoneal fluid identified. IMPRESSION: 1. Positive sonographic Myers's sign. Otherwise no evidence for cholecystitis. No gallbladder wall thickening or cholelithiasis. 2. Upper limits normal common bile duct. No choledocholithiasis identified. This document has been electronically signed by: Jerzy Brunner MD on 04/16/2024 18:10:24 Reevaluation #3: 04/17/2024 - 0819 - physician observation continued. Awaiting PT Case Management eval. Additional Reevaluation(s): 04/18/24-- 1000- Physician observation completed at 1000 Patient does not meet medical necessity for hospitalization. patient declining short-term rehab and will DC home with VNA for physical therapy. Final disposition discussed with patient and family who verbalized understanding and are in agreement. Medications Administered Generic Name Dose Route Start Last Admin Trade Name Freq PRN Reason Stop Dose Admin Acetaminophen 975 mg 04/17/24 09:11 04/18/24 01:59 Acetaminophen 325 Mg Tablet PO 975 mg Q8H PRN Administration Pain, Moderate(Pain Scale 4-6) Alprazolam 2 mg 04/16/24 22:30 04/17/24 21:02 Alprazolam 0.5 Mg Tablet PO 2 mg BEDTIME KAVITA Administration Amitriptyline HCl 75 mg 04/16/24 22:30 04/17/24 21:02 Amitriptyline Hcl 25 Mg Tablet PO 75 mg BEDTIME KAVITA Administration Apixaban 5 mg 04/16/24 22:30 04/18/24 09:32 Apixaban 5 Mg Tablet PO 5 mg BID KAVITA Administration Baclofen 20 mg 04/16/24 22:30 04/17/24 21:02 Baclofen 20 Mg Tablet PO 20 mg BEDTIME KAVITA Administration Bisacodyl 10 mg 04/16/24 22:30 04/17/24 21:02 Bisacodyl 5 Mg Tablet.Dr PO 10 mg BEDTIME KAVITA Administration Carbidopa/Levodopa 1 tab 04/16/24 22:30 04/18/24 09:32 Carbidopa/Levodopa 25/100 Tablet PO 1 tab TID KAVITA Administration Diltiazem HCl 240 mg 04/17/24 09:00 04/18/24 09:32 Diltiazem Hcl Cd 240 Mg Cap.Er.Deg PO 240 mg DAILY KAVITA Administration Protocol Docusate Sodium 100 mg 04/16/24 22:30 04/17/24 21:03 Docusate Sodium 100 Mg Capsule PO 100 mg BEDTIME KAVITA Administration Lisinopril 10 mg 04/17/24 09:00 04/18/24 09:32 Lisinopril 10 Mg Tablet PO 10 mg DAILY KAVITA Administration Protocol Metoprolol Tartrate 50 mg 04/16/24 22:30 04/18/24 09:32 Metoprolol Tartrate 50 Mg Tablet PO 50 mg BID KAVITA Administration Protocol Multivitamins/Vitamin C 1 tab 04/17/24 09:00 04/18/24 09:32 Multivitamin Tablet PO 1 tab DAILY KAVITA Administration Omeprazole 20 mg 04/17/24 06:30 04/18/24 05:56 Omeprazole 20 Mg Capsule. PO 20 mg DAILY@0630 KAVITA Administration Pregabalin 150 mg 04/16/24 22:30 04/18/24 09:32 Pregabalin 150 Mg Capsule PO 150 mg BID KAVITA Administration Trazodone HCl 100 mg 04/16/24 22:30 04/17/24 21:32 Trazodone Hcl 100 Mg Tablet PO 100 mg BEDTIME KAVITA Administration Discontinued Medications Generic Name Dose Route Start Last Admin Trade Name Freq PRN Reason Stop Dose Admin Lactated Ringer's 1,000 mls @ 999 mls/hr 04/16/24 13:30 04/16/24 14:40 Lr IV 04/16/24 14:30 999 mls/hr .Q1H1M ONE Administration Lidocaine 1 patch 04/17/24 09:11 04/17/24 09:34 Lidocaine 4 % Patch Adh..Patch TRANSDERMA 04/17/24 09:12 1 patch ONCE ONE Administration Protocol Nicotine 7 mg 04/17/24 10:46 04/17/24 11:45 Nicotine 7 Mg Patch.Td24 TRANSDERMA 04/17/24 10:47 7 mg ONCE ONE Administration Medical Decision Making Medical Decision Making [facility] Narrative: This is a 63-year-old female, with a history of Parkinson's, complex regional pain syndrome type 2, atrial fibrillation on Eliquis, TIA, hyperlipidemia, hypertension, mood disorder, morbid obesity, who presents emergency department with multiple complaints. On arrival, patient mildly hypotensive at 95/38, all other vital signs within normal limits. She is speaking full sentences under no acute distress. She was neurologically intact with no focal deficits on examination. She has an NIH score of 0. Patient discusses multiple symptoms that she has been experiencing for several months ever since she was started on Eliquis. She states that she has had brain fogginess, as well as bloody stool. She is being followed by GI. Plan to have a endoscopy/colonoscopy in the near future. Her abdomen is soft, with no tenderness on examination. She reports that she has had generalized weakness and fatigue. And this has been ongoing for the last several months. Differential Diagnosis Differential Diagnoses: The differential diagnosis associated with the presentation includes Admission/Observation Consideration of admission/observation: Escalation of care including admission/observation considered Lab Data [facility] Lab Attestation statement: I reviewed the patient's lab results. No leukocytosis, H&H stable, no evidence of RED, AST and ALT mildly elevated, patient has a history of this, alk phos slightly elevated at 126, lipase within normal limits. Troponin less than 2.7, CRP slightly elevated at 0.8, TSH low at 0.2, she does have a history of hyperthyroidism. Viral swabs negative. 04/16/24 13:09 04/16/24 13:09 Labs: Lab Results 04/16/24 04/16/24 04/16/24 Range/Units 13:09 16:32 16:33 WBC 7.4 (4.8-10.8) X10*3/uL RBC 4.70 (4.20-5.50) X10*6/uL Hgb 15.5 (12.0-16.0) g/dl Hct 46.5 (37.0-47.0) % MCV 98.9 H (80.0-98.0) fL MCH 33.0 (27.0-33.0) pg MCHC 33.3 (31.0-35.0) g/dl RDW 14.3 (11.0-16.0) % Plt Count 173 (160-400) X10*3/uL MPV 12.4 H (9.4-12.3) fL Immature Gran % (Auto) 0.7 H (0.0-0.4) % Neut % (Auto) 52.3 (45-73) % Lymph % (Auto) 34.5 (20-40) % [place] % (Auto) 10.0 (2-11) % Eos % (Auto) 1.3 (0-4) % Baso % (Auto) 1.2 (0-2) % Lymph # (Auto) 2.6 (1.2-4.9) X10*3/uL [place] # (Auto) 0.7 (0.1-1.2) X10*3/uL Eos # (Auto) 0.1 (0.0-0.4) X10*3/uL Baso # (Auto) 0.1 (0.0-0.2) X10*3/uL Abs Immat Gran (auto) 0.05 H (0.00-0.03) X10*3/uL Absolute Neuts (auto) 3.9 (2.0-8.3) x10*3/uL Absolute Nucleated RBC 0.000 (0.0-0.012) X10*3/uL Nucleated RBC % (auto) 0.0 (0.0-0.2) /100WBC ESR 13 (0-20) MM/HR Sodium 141 (135-145) mmol/L Potassium 4.6 (3.3-5.1) mmol/L Chloride 109 H (96-108) mmol/L Carbon Dioxide 26 (22-29) mmol/L Anion Gap 11 L (12-20) BUN 12 (9-16) mg/dL Creatinine 0.78 (0.5-1.4) mg/dL Estim Creat Clear Calc 95.5 Estimated GFR > 60 Random Glucose 109 (60-115) mg/dL Calcium 9.2 (8.4-10.2) mg/dL Total Bilirubin 0.3 (0.0-1.0) mg/dL AST 57 H (5-31) U/L ALT 46 H (0-31) U/L Alkaline Phosphatase 126 H (39-117) U/L Troponin I High Sens < 2.7 < 2.7 (<3.5-17.0) ng/L C-Reactive Protein 0.81 H (< or = 0.50) mg/dL B-Natriuretic Peptide 97 (<100) pg/mL Total Protein 7.6 (6.5-8.0) g/dL Albumin 3.6 (3.5-5.0) g/dL Lipase 16 (8-78) U/L TSH 0.20 L (0.32-4.0) uIU/mL Free T4 0.91 (0.71-1.85) ng/dL Urine Opiates Screen (Not Detect) Ur Buprenorphine Scrn (Not Detect) ng/mL Ur Oxycodone Screen (Not Detect) ng/mL Urine Methadone Screen (Not Detect) ng/mL Urine Fentanyl Screen (Not Detect) Ur Barbiturates Screen (Not Detect) Ur Phencyclidine Scrn (Not Detect) Ur Amphetamines Screen (Not Detect) U Benzodiazepines Scrn (Not Detect) Urine Cocaine Screen (Not Detect) U Marijuana (THC) Screen (Not Detect) Ethyl Alcohol < 10 mg/dL Influenza Type A (PCR) NEGATIVE (Negative) Influenza Type B (PCR) NEGATIVE (Negative) RSV RNA Qual (PCR) NEGATIVE (Negative) SARS-CoV-2 RNA (RT-PCR) NEGATIVE (Negative) 04/16/24 Range/Units 17:07 WBC (4.8-10.8) X10*3/uL RBC (4.20-5.50) X10*6/uL Hgb (12.0-16.0) g/dl Hct (37.0-47.0) % MCV (80.0-98.0) fL MCH (27.0-33.0) pg MCHC (31.0-35.0) g/dl RDW (11.0-16.0) % Plt Count (160-400) X10*3/uL MPV (9.4-12.3) fL Immature Gran % (Auto) (0.0-0.4) % Neut % (Auto) (45-73) % Lymph % (Auto) (20-40) % [place] % (Auto) (2-11) % Eos % (Auto) (0-4) % Baso % (Auto) (0-2) % Lymph # (Auto) (1.2-4.9) X10*3/uL [place] # (Auto) (0.1-1.2) X10*3/uL Eos # (Auto) (0.0-0.4) X10*3/uL Baso # (Auto) (0.0-0.2) X10*3/uL Abs Immat Gran (auto) (0.00-0.03) X10*3/uL Absolute Neuts (auto) (2.0-8.3) x10*3/uL Absolute Nucleated RBC (0.0-0.012) X10*3/uL Nucleated RBC % (auto) (0.0-0.2) /100WBC ESR (0-20) MM/HR Sodium (135-145) mmol/L Potassium (3.3-5.1) mmol/L Chloride (96-108) mmol/L Carbon Dioxide (22-29) mmol/L Anion Gap (12-20) BUN (9-16) mg/dL Creatinine (0.5-1.4) mg/dL Estim Creat Clear Calc Estimated GFR Random Glucose (60-115) mg/dL Calcium (8.4-10.2) mg/dL Total Bilirubin (0.0-1.0) mg/dL AST (5-31) U/L ALT (0-31) U/L Alkaline Phosphatase (39-117) U/L Troponin I High Sens (<3.5-17.0) ng/L C-Reactive Protein (< or = 0.50) mg/dL B-Natriuretic Peptide (<100) pg/mL Total Protein (6.5-8.0) g/dL Albumin (3.5-5.0) g/dL Lipase (8-78) U/L TSH (0.32-4.0) uIU/mL Free T4 (0.71-1.85) ng/dL Urine Opiates Screen Not Detected (Not Detect) Ur Buprenorphine Scrn Not Detected (Not Detect) ng/mL Ur Oxycodone Screen Not Detected (Not Detect) ng/mL Urine Methadone Screen Not Detected (Not Detect) ng/mL Urine Fentanyl Screen Not Detected (Not Detect) Ur Barbiturates Screen Not Detected (Not Detect) Ur Phencyclidine Scrn Not Detected (Not Detect) Ur Amphetamines Screen Not Detected (Not Detect) U Benzodiazepines Scrn POSITIVE H (Not Detect) Urine Cocaine Screen Not Detected (Not Detect) U Marijuana (THC) Screen Not Detected (Not Detect) Ethyl Alcohol mg/dL Influenza Type A (PCR) (Negative) Influenza Type B (PCR) (Negative) RSV RNA Qual (PCR) (Negative) SARS-CoV-2 RNA (RT-PCR) (Negative) Independent Interpretation I performed an independent interpretation of an: EKG Interpretation: Atrial fibrillation with competing junctional pacemaker > rate of 77 beats per minute, no ST elevation or depression. Radiology Impression Discussion of test interpretation with radiology: I have reviewed the radiologist's reading. Radiologist Impression: EXAMINATION: XR CHEST 2 VIEWS HISTORY: shortness of breath COMPARISON: Comparison is made with the prior examination dated 03/04/2024. FINDINGS: PA and lateral views of the chest are submitted. There is scarring in the lingula. The lungs are otherwise clear. There is no pleural effusion, pneumothorax, or pulmonary vascular congestion. The heart is normal in size. The bones are intact. XR/XR chest 2V IMPRESSION: No acute cardiopulmonary abnormality. Electronically signed by: Yoel Yap MD 04/16/2024 12:31 PM EDT RP Dictated By: Yoel Yap MD HISTORY: headache. TECHNIQUE: Unenhanced helical CT of the head was performed per standard departmental protocol. Coronal and sagittal reformats of the head were also evaluated. One or more of the following techniques was used for dose reduction: Automated exposure control, adjustment of the mA and/or kV according to patient size, use of iterative reconstruction technique. DLP: 707 mGy-cm COMPARISON: Comparison is made with the prior examination dated 03/04/2024. FINDINGS: BRAIN: The brain parenchyma is unremarkable. There is normal castaneda/white differentiation. The ventricular system is normal in size and configuration. There is no mass effect or midline shift. No intra- or extra-axial fluid collections are identified. SINUSES: The visualized paranasal sinuses are clear. The mastoid air cells and middle ear cavities are well pneumatized. ORBITS: The visualized orbits are unremarkable. BONES/SOFT TISSUES: The extracranial soft tissues are unremarkable. The calvarium is intact. No suspicious lytic or sclerotic lesions. CT/CT head/brain wo IV con IMPRESSION: No acute intracranial abnormality. Electronically signed by: Yoel Yap MD 04/16/2024 12:39 PM EDT RP Dictated By: Yoel Yap MD External Record Review External record reviewed: Outpatient record Discharge Plan Discharge Clinical Impression: Fatigue, Weakness Patient Disposition: Still a Patient Prescriptions: No Action vitamin B complex [Vitamins B Complex] Capsule 1 cap PO DAILY 90 Days Qty: 90 1RF (DME) Cane tips 3/4 inch See Rx Instructions .Route .MEDSUPPLY Qty: 1 0RF Rx Instructions: As directed (DME) Ultra-Light Rollator Misc See Rx Instructions .Route Qty: 1 0RF Rx Instructions: Seated 4 wheeled walker with basket (DME) cane Device See Rx Instructions .Route Qty: 1 0RF Rx Instructions: Single point cane. Use when walking (DME) back brace Misc See Rx Instructions .Route Qty: 1 0RF Rx Instructions: Lumbar back support. Use when sitting baclofen 10 mg tablet 20 mg PO BEDTIME 30 Days Qty: 60 2RF amitriptyline 25 mg tablet 75 mg PO BEDTIME 30 Days Qty: 90 2RF simethicone [Anti-Gas Ultra Strength] 180 mg capsule 180 mg PO BID PRN (Reason: for abdominal pain) Qty: 180 4RF pregabalin 150 mg capsule 150 mg PO BID diltiazem HCl 240 mg Capsule,Extended Release 24hr 240 mg PO DAILY Qty: 30 0RF Protocol: Hold for SBP/HR < HOLD for SBP < : 90 HOLD for HR < : 60 Eliquis 5 mg Tablet 5 mg PO BID Qty: 60 0RF lisinopril 10 mg tablet 10 mg PO DAILY 90 Days Qty: 90 0RF sennosides [senna] 8.6 mg tablet 17.2 mg PO BEDTIME PRN (Reason: constipation) alprazolam 2 mg tablet 2 mg PO BEDTIME PRN (Reason: anxiety) metoprolol tartrate 25 mg tablet 25 mg PO BID epinephrine 0.3 mg/0.3 mL auto-injector 0.3 mg IM Q4H PRN (Reason: Anaphylaxis) etodolac 500 mg tablet 500 mg PO BID PRN (Reason: Migraines) trazodone 100 mg tablet 100 mg PO BEDTIME (DME) Door alarm See Rx Instructions .Route .MEDSUPPLY Qty: 2 0RF Rx Instructions: apply to bedroom and exit door at night (DME) Laser alarm See Rx Instructions .Route .MEDSUPPLY Qty: 1 0RF Rx Instructions: Laser alarm applied to head of bed, turn on nightly; albuterol sulfate [Ventolin HFA] 90 mcg/actuation HFA aerosol inhaler 1 inh inhalation QID PRN (Reason: Shortness Of Breath Or Wheezing) cetirizine 10 mg tablet 10 mg PO DAILY PRN (Reason: allergies) (DME) blood pressure monitor Kit See Rx Instructions .Route Qty: 1 0RF Rx Instructions: As directed (DME) cane Device See Rx Instructions .Route Qty: 1 0RF Rx Instructions: As directed atorvastatin 20 mg tablet 20 mg PO DAILY multivitamin with folic acid [Daily-Trinity (with folic acid)] 400 mcg tablet 1 tab PO DAILY carbidopa-levodopa 25-100 mg tablet 1 tab PO TID 30 Days Qty: 90 6RF Linzess 290 mcg capsule 290 mcg PO QAM Qty: 30 4RF bisacodyl [Dulcolax (bisacodyl)] 5 mg tablet,delayed release (DR/EC) 10 mg PO BEDTIME Qty: 180 4RF docusate sodium 100 mg capsule 100 mg PO BEDTIME Qty: 90 3RF magnesium citrate [Citrate of Magnesia] Solution 150 ml PO DAILY PRN (Reason: constipation) Qty: 296 2RF esomeprazole magnesium [Nexium] 40 mg capsule,delayed release(DR/EC) 40 mg PO DAILY Qty: 30 5RF Referrals: [facility] [Outside] (Agency will call you to arrange visits. ) Print Language: Maltese
--- NOTE | 2024-04-16 11:54 | ECG_ITS ---
Test Reason : dyspnea Blood Pressure : */* mmHG Vent. Rate : 77 BPM Atrial Rate : * BPM P-R Int : * ms QRS Dur : 84 ms QT Int : 416 ms P-R-T Axes : * 42 37 degrees QTcB Int : 470 ms Artifact in tracing Atrial fibrillation vs flutter Abnormal ECG When compared with ECG of 04-Mar-2024 14:19, No significant changes seen Referred By: Richie Babb Electronically Signed By: EVITA SUTTON
[2024-04-16 13:14] LABS: MANUAL DIFF FLAG NO
[2024-04-16 13:18] LABS: Basophils Absolute Auto 0.1 X10*3/uL (0.0-0.2); Basophils Percent Auto 1.2 % (0-2); Eosinophils Absolute Auto 0.1 X10*3/uL (0.0-0.4); Eosinophils Percent Auto 1.3 % (0-4); Hematocrit 46.5 % (37.0-47.0); Hemoglobin 15.5 g/dl (12.0-16.0); Imm Gran Abs Auto 0.05 X10*3/uL (0.00-0.03); Imm Gran Pct Auto 0.7 % (0.0-0.4); Lymphocytes Absolute Auto 2.6 X10*3/uL (1.2-4.9); Lymphocytes Percent Auto 34.5 % (20-40); Mean Corpuscular HGB Conc 33.3 g/dl (31.0-35.0); Mean Corpuscular Volume 98.9 fL (80.0-98.0); Mean Platelet Volume 12.4 fL (9.4-12.3); Monocytes Absolute Auto 0.7 X10*3/uL (0.1-1.2); Neutrophils Absolute Auto 3.9 x10*3/uL (2.0-8.3); Neutrophils Percent Auto 52.3 % (45-73); Platelet Count 173 X10*3/uL (160-400); Red Cell Distribution Width 14.3 % (11.0-16.0); White Blood Count 7.4 X10*3/uL (4.8-10.8)
[2024-04-16 13:32] LABS: Alanine Aminotransferase 46 U/L (0-31); Albumin Level 3.6 g/dL (3.5-5.0); Alkaline Phosphatase 126 U/L (39-117); Anion Gap 11 (12-20); Aspartate Amino Transferase 57 U/L (5-31); Bilirubin Total 0.3 mg/dL (0.0-1.0); Blood Urea Nitrogen 12 mg/dL (9-16); Calcium 9.2 mg/dL (8.4-10.2); Carbon Dioxide 26 mmol/L (22-29); Chloride 109 mmol/L (96-108); Creatinine Clr Calc Pharmacy 95.5; Estimated Glomerular Filt Rate > 60; Glucose Random 109 mg/dL (60-115); Lipase 16 U/L (8-78); Potassium 4.6 mmol/L (3.3-5.1); Sodium 141 mmol/L (135-145); Total Protein 7.6 g/dL (6.5-8.0)
[2024-04-16 13:37] LABS: C Reactive Protein 0.81 mg/dL (< or = 0.50)
[2024-04-16 13:38] LABS: B Type Natriuretic Peptide 97 pg/mL (<100)
[2024-04-16 13:42] LABS: Troponin-I High Sensitivity < 2.7 ng/L (<3.5-17.0)
[2024-04-16 13:55] LABS: Erythrocyte Sedimentation Rate 13 MM/HR (0-20); Influenza A PCR NEGATIVE (Negative); Influenza B PCR NEGATIVE (Negative); Resp Syncy Virus RNA Qual PCR NEGATIVE (Negative); SARS COV2 PCR INHOUSE NEGATIVE (Negative)
[2024-04-16] MEDS: Lactated Ringers 1,000 ML 999 ML IV (14:40)
[2024-04-16 15:56] LABS: Free T4 (Free Thyroxine) 0.91 ng/dL (0.71-1.85)
[2024-04-16 16:58] LABS: Ethanol < 10 mg/dL
[2024-04-16 17:07] LABS: Troponin-I High Sensitivity < 2.7 ng/L (<3.5-17.0)
[2024-04-16 17:27] LABS: Amphetamine Screen Urine Not Detected (Not Detect); Barbiturates, Urine Not Detected (Not Detect); Benzodiazepines Screen Urine POSITIVE (Not Detect); Buprenorphine Scr Not Detected (Not Detect); Cannabinoid Screen Urine Not Detected (Not Detect); Cocaine Screen Urine Not Detected (Not Detect); Fentanyl, urine Not Detected (Not Detect); Methadone Screen, Urine Not Detected (Not Detect); Opiate Screen Urine Not Detected (Not Detect); Oxycodone Screen Urine Not Detected (Not Detect); Phencyclidine Screen Urine Not Detected (Not Detect)
--- NOTE | 2024-04-16 17:38 | PC.NURSE ---
IVF infusing very slowly d/t patient no able to keep arm in position as IV is postional. attempted education multiple times.
--- NOTE | 2024-04-16 21:47 | PC.NURSE ---
Addendum entered by Heather Echols RN 04/17/24 06:23: pt rested well throughout the night, remained calm and cooperative. Pt ate 100% of chicken salad and turkey half sandwiches, ice cream and water/gingerale. Pt used bedside commode, liner changed. Complaint with meds. pts needs met at this time call carbone is within reach. plan of care ongoing. Original Note: assumed care for this pt at 1999. pt a&o x4 speaking in full clear sentences. EDT noted pts bp to be 169/110 automated and manual bp of 150/100, GEO Dobbins aware. attemptig med rec wi pt provided list.
[2024-04-16] MEDS: ALPRAZolam 0.5 MG TABLET 2 MG PO (22:57)
[2024-04-16] MEDS: Docusate Sodium 100 MG CAPSULE PO (22:58)
[2024-04-16] MEDS: bisacodyL 5 MG TABLET.DR 10 MG PO (22:58)
[2024-04-16] MEDS: Metoprolol Tartrate 50 MG TABLET PO (22:58)
[2024-04-16] MEDS: Apixaban 5 MG TABLET PO (22:58)
[2024-04-16] MEDS: Pregabalin 150 MG CAPSULE PO (22:58)
[2024-04-16] MEDS: Baclofen 20 MG TABLET PO (22:58)
[2024-04-16] MEDS: Carbidopa/Levodopa 25/100 TABLET 1 TAB PO (23:00)
[2024-04-16] MEDS: traZODone HCL 100 MG TABLET PO (23:00)
[2024-04-16] MEDS: Amitriptyline HCl 25 MG TABLET 75 MG PO (23:00)
[2024-04-17] VITALS (7 sets, daily range): BP systolic 115–160; BP diastolic 74–101; PULSE 95–113; RESP 20–22; TEMP 36.1–36.8; O2SAT 94–98
[2024-04-17] MEDS: Omeprazole 20 MG CAPSULE.DR PO (06:12)
--- NOTE | 2024-04-17 07:40 | PC.NURSE ---
pt is alert and oriented, skin pwd, pt reports left mid back pain that wraps to the rib area, pt reports pain at 9/10, pain gets worse with deep inspirations reaching out to the provider for pain medications because currently there is no orders
[2024-04-17] MEDS: Acetaminophen 325 MG TABLET 975 MG PO (09:33)
[2024-04-17] MEDS: Metoprolol Tartrate 50 MG TABLET PO ×2 (09:33→21:02)
[2024-04-17] MEDS: Pregabalin 150 MG CAPSULE PO ×2 (09:33→21:02)
[2024-04-17] MEDS: Apixaban 5 MG TABLET PO ×2 (09:33→21:02)
[2024-04-17] MEDS: Multivitamin TABLET 1 TAB PO (09:34)
[2024-04-17] MEDS: Lidocaine 4 % Patch ADH..PATCH 1 PATCH TRANSDERMA (09:34)
[2024-04-17] MEDS: Carbidopa/Levodopa 25/100 TABLET 1 TAB PO ×3 (10:41→21:02)
[2024-04-17] MEDS: dilTIAZem HCL CD 240 MG CAP.ER.DEG PO (10:41)
[2024-04-17] MEDS: lisinopriL 10 MG TABLET PO (10:41)
[2024-04-17] MEDS: Nicotine 7 MG PATCH.TD24 TRANSDERMA (11:45)
--- NOTE | 2024-04-17 12:57 | PHA.MEDREC ---
Addendum entered by Adam Goncalves 04/17/24 13:48: reviewed Original Note: Pharmacy Consult ? Medication Reconciliation Pharmacy has reviewed the medication reconciliation done by nursing. Spoke to patient to confirm med list. Patient states she was here in February and there are no changes in her medication. Utilized claims and discharge packet to confirm med list.
--- NOTE | 2024-04-17 13:53 | PC.NURSE ---
Alba edwards from case management is meeting with the pt, pt is currently refusing to go to rehab
--- NOTE | 2024-04-17 14:07 | MHC.CM.ED ---
Received case management consult overnight. Patient came to the ER due to dizziness and weakness. Physical therapy eval completed. Short term rehab is recommended. Met with patient in regards to discharge planning. Patient lives alone, ambulates with a cane and has STAFF INTERNIST OFFICE BASED ONLY hours through [employer] [facility] [employer]. PCP verified. Copy of HCP verified to be on file. Patient is declining rehab at this time. Requesting physical therapy at home. Patient is active with [facility]. T/W spoke with Raphael from [facility]. Patient should be active with [facility] for SN. Referral made to [facility]. Patient is not active with their agency at this time. Referral broadcasted to all agencies that are contracted with patient's insurance for physical therapy availability. Patient states she will drive herself home. Yadira FARAH and Molly GUARDADO aware. Continue to monitor for d/c needs.
--- NOTE | 2024-04-17 14:15 | PC.NURSE ---
pt decide that she would like a little more information about how rehab works and more details in regards to the facilities before she completely makes the decision of not going to a rehab this rn contacted Molly GUARDADO and Alba from case management about this information, pt did decent ambulating a short distance with her cane
--- NOTE | 2024-04-17 15:40 | PC.NURSE ---
Alba meeting with the patient again, pt is not exactuly sure what she would like to do in regards to going home or rehab- as of know the pt is staying the night in the ED and thinking over and will re-group tomorrow morning with Alba
--- NOTE | 2024-04-17 15:47 | MHC.CM.ED ---
Met with patient and re-explained STR vs home with [facility] for physical therapy. Patient is unsure what is the safest plan for her. Patient will stay in ER overnight. CM will meet with patient again in morning to determine final d/c plan. Continue to monitor for d/c needs.
[2024-04-17] MEDS: ALPRAZolam 0.5 MG TABLET 2 MG PO (21:02)
[2024-04-17] MEDS: Amitriptyline HCl 25 MG TABLET 75 MG PO (21:02)
[2024-04-17] MEDS: Baclofen 20 MG TABLET PO (21:02)
[2024-04-17] MEDS: bisacodyL 5 MG TABLET.DR 10 MG PO (21:02)
[2024-04-17] MEDS: Docusate Sodium 100 MG CAPSULE PO (21:03)
[2024-04-17] MEDS: traZODone HCL 100 MG TABLET PO (21:32)
[2024-04-18] MEDS: Acetaminophen 325 MG TABLET 975 MG PO (01:59)
[2024-04-18 05:30] VITALS: BP 157/72; PULSE 98; RESP 18; TEMP 36.1; O2SAT 99
[2024-04-18] MEDS: Omeprazole 20 MG CAPSULE.DR PO (05:56)
--- NOTE | 2024-04-18 07:06 | MHC.EDTECH ---
Patient is sleeping now.
[2024-04-18] MEDS: dilTIAZem HCL CD 240 MG CAP.ER.DEG PO (09:32)
[2024-04-18] MEDS: lisinopriL 10 MG TABLET PO (09:32)
[2024-04-18] MEDS: Multivitamin TABLET 1 TAB PO (09:32)
[2024-04-18] MEDS: Metoprolol Tartrate 50 MG TABLET PO (09:32)
[2024-04-18] MEDS: Apixaban 5 MG TABLET PO (09:32)
[2024-04-18] MEDS: Pregabalin 150 MG CAPSULE PO (09:32)
[2024-04-18] MEDS: Carbidopa/Levodopa 25/100 TABLET 1 TAB PO (09:32)
--- NOTE | 2024-04-18 09:42 | MHC.CM.ED ---
Patient remains in ER overflow. Met with patient in regards to discharge planning. Patient is still declining STR and will d/c home with [facility]. Brenda FARAH and Tawanna GUARDADO aware. Continue to monitor for d/c needs.
[2024-04-18 10:36] VITALS: BP 139/84; PULSE 93; RESP 17; TEMP 36.1; O2SAT 97
== END 2024-04-18 10:59 | disposition home or self-care (01) ==
PROVIDERS: Physician Assistant; Physician Assistant Medical; Emergency Provider Student in an Organized Health Care Education/Training Program; PCP Internal Medicine
DX: R53.1 Weakness (principal); R53.83 Other fatigue; R42 Dizziness and giddiness; I48.91 Unspecified atrial fibrillation; K62.5 Hemorrhage of anus and rectum; K59.00 Constipation, unspecified; R51.9 Headache, unspecified; F17.210 Nicotine dependence, cigarettes, uncomplicated; R06.02 Shortness of breath; R26.81 Unsteadiness on feet; I10 Essential (primary) hypertension; Z03.818 Encounter for observation for suspected exposure to other biological agents ruled out; Z79.01 Long term (current) use of anticoagulants; Z79.899 Other long term (current) drug therapy; Z51.81 Encounter for therapeutic drug level monitoring
CPT/HCPCS: 0241U; 36415; 70450; 71046; 72141; 76705; 80053; 80307; 83690; 83880; 84439; 84443; 84484; 85025; 85652; 86140; 93005; 97162; 99212; 99285; J7120

== ENCOUNTER → 2024-04-16 11:54 | Outpatient (BNV) | payer OTHER, SELFPAY | PROVIDERS: Emergency Provider Student in an Organized Health Care Education/Training Program; PCP Internal Medicine; Visit Provider Internal Medicine | DX: R94.31 Abnormal electrocardiogram [ECG] [EKG] (principal); R06.00 Dyspnea, unspecified | CPT/HCPCS: 93010 ==

== ENCOUNTER → 2024-04-16 11:54 | Outpatient (BNV) | payer OTHER, SELFPAY | PROVIDERS: Emergency Provider Student in an Organized Health Care Education/Training Program; PCP Internal Medicine; Visit Provider Radiology Diagnostic Radiology | DX: M47.812 Spondylosis without myelopathy or radiculopathy, cervical region (principal); R51.9 Headache, unspecified; K80.50 Calculus of bile duct without cholangitis or cholecystitis without obstruction; R10.11 Right upper quadrant pain; R06.02 Shortness of breath | CPT/HCPCS: 70450; 71046; 72141; 76705 ==

== ENCOUNTER → 2024-06-18 09:06 | Outpatient (REF) | payer OTHER, SELFPAY ==
--- NOTE | ~2024-06-18 | NM_ITS ---
Lexiscan Myocardial perfusion study Indication: Cardiac arrhythmias to evaluate for myocardial ischemia Technique: The patient was brought in for a Lexiscan perfusion study on 06/18/2024 and was injected 0.4 mg of Lexiscan intravenously. Within a minute of this injection 40 mCi of sestamibi was given intravenously. Images were obtained using the SPECT gamma camera interlaced with the gating device. Images were obtained in supine position. Resting perfusion study was performed on 06/19/2024. Patient was administered 40 mCi of sestamibi intravenously at rest. Images were then obtained in supine position. Images obtained without without CT attenuation. Total DLP 130 mGy-cm. Images were processed with the software and compared side to side in short axis, horizontal long axis and vertical long axis views. Findings: The stress perfusion study showed nonattenuated images show minimal thinning of the distal anterior wall of the LV myocardium. Remainder of the LV myocardium is normally perfused. Attenuated corrected images show normal uptake of radiotracer in all segments of the myocardium with some thinning of the apex. The gated study shows normal LV systolic function with calculated LVEF of 57%. LV cavity is normal in size. The gated study shows normal systolic wall thickening and contraction of segments. Resting study shows normal attenuation mildly reduced uptake in the inferior and inferolateral wall of the LV myocardium suggests of breast attenuation. Attenuated corrected images show mildly. Gating at rest reveals normal systolic wall motion with ejection fraction at 55%. The findings are consistent with normal myocardial perfusion. NM/NM cardiolite stress test Impression: 1. Myocardial perfusion imaging study shows normal myocardial perfusion 2. Gated LVEF is 57% 3. Transient ischemic dilatation not present Nondiagnostic changes on EKG. Electronically signed by: Alexx Gurrola MD 06/19/2024 05:52 PM EDT
--- NOTE | 2024-06-18 09:08 | CA_ITS ---
Acquisition Time: 2024-06-18 09:31:02 Total Exercise Time: 00:02:00 Test Indications: Abnormal ECG CP Medications: SEE H&P Protocol: LEXISCAN Max HR: 93 BPM 58% of Pred: 158 BPM Max BP: 144/70 mmHG Max Work Load: 1.0 METS Pharmacological stress test with Lexiscan while pt swings her legs in chair, with reports of SOB and cough, with isolated PVCs, with normotensive response to injection. Nondiagnostic EKG for ischemia. In recovery, pt treated with IVP Aminophylline 75 mg to reverse to Lexiscan after which pt feeling back to baseline. Nuclear images pending. Test reviewed with Dr. Gurrola. Referred By: Izabella Munson Electronically Signed By: Bayron Watson
== END ==
LOC: HO.CARD 09:06
PROVIDERS: PCP Internal Medicine; Visit Provider Nurse Practitioner Family
DX: I48.92 Unspecified atrial flutter (principal)
CPT/HCPCS: 78452; 93017; A9500; J0280; J2785

== ENCOUNTER → 2024-06-18 09:08 | Outpatient (BNV) | payer OTHER, SELFPAY | PROVIDERS: PCP Internal Medicine | DX: R94.31 Abnormal electrocardiogram [ECG] [EKG] (principal) | CPT/HCPCS: 78452; 93016; 93018 ==

== ENCOUNTER 2024-06-26 09:04 | Outpatient (AMB) | payer OTHER, SELFPAY ==
--- NOTE | 2024-06-26 09:06 | MHC.OFFVIS ---
Vital Signs 06/26/24 09:09 Height 5 ft 6 in Weight 244 lb 11.41 oz BMI 39.5 BP 130/64 Blood Pressure Location Lt brachial Position Sitting Pulse 90 Pulse Source Pulse Oximeter Intake Visit Reasons: f/up after tests [facility] d/c Fire Support Specialist Required: No Accompanied by: Self / Same As Patient Allergies bee venom protein (honey bee) Allergy (Severe, Verified 04/16/24 11:54) Anaphylaxis Penicillins Allergy (Severe, Verified 04/16/24 11:54) Unknown Medication List - Last Reconciled 06/26/24 by Rei Lawrence MD albuterol sulfate 90 mcg/actuation (Ventolin HFA) 1 inh inhalation QID PRN alprazolam 2 mg PO BEDTIME PRN amitriptyline 75 mg (3 x 25 mg) PO BEDTIME 30 days apixaban (Eliquis) 5 mg PO BID atorvastatin 20 mg PO DAILY back brace Lumbar back support. Use when sitting baclofen 20 mg (2 x 10 mg) PO BEDTIME 30 days bisacodyl (Dulcolax (bisacodyl)) 10 mg (2 x 5 mg) PO BEDTIME blood pressure monitor As directed cane As directed cane Single point cane. Use when walking [Cane tips As directed] carbidopa-levodopa 25-100 mg 1 tab PO TID 30 days cetirizine 10 mg PO DAILY PRN dapagliflozin propanediol 10 mg PO DAILY docusate sodium 100 mg PO BEDTIME [Door alarm apply to bedroom and exit door at night] epinephrine 0.3 mg IM Q4H PRN esomeprazole magnesium (Nexium) 40 mg PO DAILY etodolac 500 mg PO BID PRN [Laser alarm Laser alarm applied to head of bed, turn on nightly; ] linaclotide (Linzess) 290 mcg PO QAM lisinopril 10 mg PO DAILY 90 days magnesium citrate (Citrate of Magnesia oral) 150 mL PO DAILY PRN metoprolol succinate ER 50 mg PO DAILY multivitamin with folic acid 400 mcg (Daily-Trinity (with folic acid)) 1 tab PO DAILY pregabalin 150 mg PO BID sennosides (senna) 17.2 mg PO BEDTIME PRN simethicone (Anti-Gas Ultra Strength) 180 mg PO BID PRN trazodone 100 mg PO BEDTIME vitamin B complex (Vitamins B Complex capsule) 1 cap PO DAILY 90 days walker (Ultra-Light Rollator misc) Seated 4 wheeled walker with basket HPI Comments Details: Cecille returns for follow-up. Few months back, she was seen in the clinic when she actually had atrial flutter with rapid rate on the EKG. Subsequently, managed initially by rate control but it seems that she actually got admitted to [facility] where she underwent MARSHALL/cardioversion. Currently on beta-blockers and Eliquis. She states she just feels tired and has nonspecific symptoms but nothing clear-cut cardiac. She did have preserved LVEF in the past but in the MARSHALL at [facility] there was LV dysfunction most likely tachycardia mediated. She has no history of any ischemic heart disease. Many pain issues. 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) Alcohol intake: current Alcohol intake frequency: holidays/special occasions only Patient Tobacco Use Status: Current everyday Tobacco user Cigarettes Per Day: 5 Advance Directives Date on File: 02/16/24 service: No Review of Systems Const Denies chills, Denies fatigue, Denies fever(s), Denies frequent falls, Denies weakness, Denies weight gain and Denies weight loss ENT Denies dizziness Card Denies chest pain, Denies leg edema, Denies lightheadedness, Denies palpitations, Denies dyspnea and Denies dyspnea on exertion Resp Denies cough, Denies dyspnea and Denies dyspnea on exertion GI Denies hematochezia Musc Denies abnormal gait, Denies muscle weakness, Denies numbness, Denies radiating pain into limb and Denies tingling Neuro Denies abnormal gait, Denies dizziness, Denies frequent falls, Denies numbness, Denies tingling and Denies weakness Endo Denies fatigue and Denies palpitations Physical Exam Vital Signs: Last Vital Signs Pulse 90 06/26/24 09:09 BP 130/64 06/26/24 09:09 BMI result Body Mass Index 39.5 Const General: comfortable and no acute distress Orientation/consciousness: patient oriented x3 HEENT Other: Unremarkable Head: Yes normal to inspection Neck Neck: Yes normal visual inspection Chest Chest palpation & inspection: normal inspection of the chest Resp Auscultation: clear to auscultation bilaterally Cardio Palpation: normal PMI Heart sounds: S1 normal heart sound present, S2 normal heart sound present, no gallops, no murmurs and no rubs GI Palpation (GI): Soft to palpation Back/Spine/Pelvis Other: unremarkable Skin General skin exam: no rashes or lesions noted Neuro General: patient oriented x3 Extrem General: Yes normal to inspection Psych Mental Status: mental status grossly normal Office Procedures EKG Details: EKG with underlying sinus rhythm at 85/Min; no ischemic changes; [place] [id number], Complete Assessment & Plan Assessment & Plan (1) Atrial flutter by electrocardiogram: Code(s): I48.92 - Unspecified atrial flutter Category: Medical Plan: Status post MARSHALL/cardioversion 06/2024. She remains on beta-blockers/anticoagulation. By EKG, she is in sinus rhythm. Needs EP follow-up for atrial flutter ablation. Message sent to EP. (2) Cardiomyopathy: Code(s): I42.9 - Cardiomyopathy, unspecified Category: Medical Plan: Per MARSHALL, LV systolic function moderate to severely reduced. Most likely tachycardia mediated. We will follow up with a repeat echocardiogram to ensure this normalizes. Clinically, she has got no congestive heart failure. Coding Level of Care Code Est Pt Level 4 (90194) Complex EM visit Add On G2211 Diagnoses Atrial flutter by electrocardiogram I48.92 Cardiomyopathy I42.9 CPT Codes EKG - CPT: 35362-[id number], Complete ([id number])
[2024-06-26 09:09] VITALS: BP 130/64; PULSE 90; BMI 39.5
== END 2024-06-26 09:39 | disposition home or self-care (01) ==
LOC: HO.HCS 09:05
PROVIDERS: PCP Internal Medicine; Visit Provider Internal Medicine
DX: I48.92 Unspecified atrial flutter (principal); I42.9 Cardiomyopathy, unspecified
CPT/HCPCS: 93010; 99214; G2211

== ENCOUNTER → 2024-06-26 09:04 | Outpatient (BNVA) | payer OTHER, SELFPAY | PROVIDERS: PCP Internal Medicine; Visit Provider Internal Medicine | DX: I48.92 Unspecified atrial flutter (principal); I42.9 Cardiomyopathy, unspecified | CPT/HCPCS: 93005; 99212 ==

== ENCOUNTER 2024-06-28 11:03 | Outpatient (AMB) | payer OTHER, SELFPAY ==
--- NOTE | 2024-06-28 11:06 | MHC.OFFVIS ---
Intake Visit Reasons: 2 mo Constipation GERD Intake Note: ESTABLISHED PATIENT for mgmt of GERD + CIC. CC; C.O. dysphagia, no burning. Pt reports that her BMs are still irregular despite her current tx. Pt is unable to formally verify her medications as she forgot her med list. Pt states she sometimes has multiple BMs per day, sometimes will go 3-4 days without having any BMs. Pt reports recent cardiac workup at [facility]. Supervisor Opening And Picking Required: No Accompanied by: Self / Same As Patient Allergies bee venom protein (honey bee) Allergy (Severe, Verified 06/28/24 11:12) Anaphylaxis Penicillins Allergy (Severe, Verified 06/28/24 11:12) Unknown HPI HPI 2 mo Constipation GERD: Details: LAST VISIT Rectal bleeding Constipation GERD (gastroesophageal reflux disease) IBS (irritable bowel syndrome) Transaminitis Elevated ferritin level Weight gain with edema Bilateral lower extremity edema Abdominal bloating Plan Patient continues to have constipation. She can take Dulcolax with stool softener. Patient was in encouraged to increase fluid intake and activity to promote better bowel motility. Patient continues to have acid reflux. Reports burning like sensation in her chest and burping. Will change PPI to Nexium. Patient was encouraged to avoid dietary triggers and late night snacking. Staying upright for minimum 3 hours after meals discussed with patient. Patient reports nightmares related to PTSD. Patient was encouraged to go and speak to her therapist. Patient does not have shortness of breath or chest pain. Reports generalized weakness. Patient feels like she should be admitted to the hospital. Patient was encouraged to go to ED to get further evaluation. Patient never went to ED after she spoke with our staff few days ago. Her symptoms have been ongoing since February. Ask patient if she is seeing therapist or psychiatrist due to her PTSD and depression. Patient states that she has a therapist that she sees regularly. Patient will be seeing block sawyer in June. She is going for nuclear stress test in June as well. We will ask for risk stratification before sending her for upper endoscopy and colonoscopy. Patient will return to the office in 2 months to discuss going for colonoscopy and upper endoscopy. . She is agreeable to current plan of care and verbalizes understanding of instructions. She was given the opportunity to ask questions and all questions answered. ? Thank you for allowing me to participate in her care ? Patient was wheeled down in a wheelchair by medical care administrator to sign into ER for more in that evaluation. Medications New docusate sodium 100 mg PO BEDTIME 90 caps 3RF K59.00 esomeprazole magnesium (Nexium) 40 mg PO DAILY 30 caps 5RF K21.9 Refilled bisacodyl (Dulcolax (bisacodyl)) 10 mg (2 x 5 mg) PO BEDTIME 180 tabs 4RF magnesium citrate (Citrate of Magnesia oral) 150 mL PO DAILY PRN 296 mL 2RF constipation K59.00 Discontinued omeprazole Discontinued Reason: Doctor's Order 20 mg PO DAILY 90 caps 2RF TODAY'S VISIT Patient is here today for follow-up. Patient reports that she again was admitted in the beginning of this month to [facility] for atrial fibrillation. Patient reports that she is currently taking metoprolol and Eliquis. Reports that she has been tired lately. Continues with abdominal bloating and lots of gas. Patient reports that she is feeling gassy. Bowel movements very. She is taking Linzess and Dulcolax and states that sometimes she will have a 2-3 bowel movements a day and then she will have no bowel movements for 3-5 days. Patient denies melena, hematochezia. Reports that acid reflux is suppressed for the most part. Patient is currently taking Nexium. Patient denies any dyspepsia, dysphagia or odynophagia. Patient is looking forward in going to [place] to visit her friend for a week. 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) Alcohol intake: current Alcohol intake frequency: holidays/special occasions only Patient Tobacco Use Status: Current everyday Tobacco user Cigarettes Per Day: 5 Advance Directives Date on File: 02/16/24 service: No Review of Systems Const Denies weight gain and Denies weight loss ENT Reports no additional complaints, Denies dysphagia and Denies odynophagia Card Reports no additional complaints Resp Reports no additional complaints GI Reports abdominal pain (EPIGASTRIC), Denies belching, Denies melena, Reports bloating, Reports hematochezia (Occasional when constipated), Reports constipation, Denies dysphagia, Denies excessive flatus, Denies dyspepsia, Denies heartburn, Denies diarrhea, Denies loose stools, Denies nausea, Denies odynophagia and Denies vomiting Reports no additional complaints Musc Reports no additional complaints Neuro Reports no additional complaints Psych Reports no additional complaints Endo Reports no additional complaints Physical Exam Const General: healthy appearing and no acute distress Nutritional Appearance: obese Orientation/consciousness: patient oriented x3 Resp Effort & Inspection: normal respiratory effort, able to speak in complete sentences, no tracheal deviation and symmetric chest movement Auscultation: clear to auscultation bilaterally Cardio Rate: regular rate GI Inspection: Yes normal to inspection, No distended and Yes obesity Palpation (GI): Soft to palpation, not firm, nontender and No hepatosplenomegaly present Auscultation: Hypoactive bowel sounds present General: Yes no CVA tenderness Back/Spine/Pelvis Back: no CVA tenderness Skin General skin exam: elasticity normal, turgor normal and dry skin Neuro General: patient oriented x3 Extrem Other: Bilateral lower extremity edema, 2+ pitting bilaterally, positive pedal pulses Psych Appearance: grossly normal Mental Status: mental status grossly normal Assessment & Plan Assessment & Plan (1) Rectal bleeding: Code(s): K62.5 - Hemorrhage of anus and rectum Category: Medical (2) Constipation: Code(s): K59.00 - Constipation, unspecified Category: Medical Qualifiers: Constipation type: drug induced constipation Qualified Code(s): K59.03 - Drug induced constipation (3) GERD (gastroesophageal reflux disease): Code(s): K21.9 - Gastro-esophageal reflux disease without esophagitis Qualifiers: Esophagitis presence: esophagitis presence not specified Qualified Code(s): K21.9 - Gastro-esophageal reflux disease without esophagitis (4) IBS (irritable bowel syndrome): Code(s): K58.9 - Irritable bowel syndrome, unspecified Qualifiers: Irritable bowel syndrome type: with both diarrhea and constipation Qualified Code(s): K58.2 - Mixed irritable bowel syndrome (5) Transaminitis: Code(s): R74.01 - Elevation of levels of liver transaminase levels (6) Elevated ferritin level: Code(s): R79.89 - Other specified abnormal findings of blood chemistry (7) Weight gain with edema: Code(s): R63.5 - Abnormal weight gain; R60.9 - Edema, unspecified (8) Bilateral lower extremity edema: Code(s): R60.0 - Localized edema (9) Abdominal bloating: Code(s): R14.0 - Abdominal distension (gaseous) Plan Patient will continue taking Linzess in the morning and Dulcolax at bedtime. Patient can take also stool softener. Avoid straining. Increase fluid intake and activity to promote better bowel motility. May take simethicone for bloating. Low FODMAP diet discussed with patient. List of food recommended as well as list of food to avoid given to patient. Patient will follow-up in 3-4 months, sooner on as needed basis. She is agreeable to this plan and verbalizes understanding of instructions. She was given the opportunity to ask questions and all questions answered. Thank you for allowing me to participate in her care Medications: Changed From docusate sodium 100 mg PO BEDTIME 90 caps 3RF K59.00 - Constipation, unspecified To docusate sodium 200 mg (2 x 100 mg) PO BEDTIME 90 caps 3RF K59.00 - Constipation, unspecified Coding Level of Care Code Est Pt Level 4 (83128) Complex EM visit Add On G2211 Diagnoses Rectal bleeding K62.5 Drug-induced constipation K59.03 Constipation type: drug induced constipation Gastroesophageal reflux disease, unspecified whether esophagitis present K21.9 Esophagitis presence: esophagitis presence not specified Irritable bowel syndrome with both constipation and diarrhea K58.2 Irritable bowel syndrome type: with both diarrhea and constipation Transaminitis R74.01 Elevated ferritin level R79.89 Weight gain with edema R63.5; R60.9 Bilateral lower extremity edema R60.0 Abdominal bloating R14.0 Time Spent (min) 35 Comment 25 minutes spent with patient and additional 10 minutes spent reviewing her records
== END 2024-06-28 11:51 | disposition home or self-care (01) ==
LOC: HO.HGI 11:03
PROVIDERS: PCP Internal Medicine; Visit Provider Nurse Practitioner Family
DX: K62.5 Hemorrhage of anus and rectum (principal); K59.03 Drug induced constipation; K21.9 Gastro-esophageal reflux disease without esophagitis; K58.2 Mixed irritable bowel syndrome; R74.01 Elevation of levels of liver transaminase levels; R79.89 Other specified abnormal findings of blood chemistry; R63.5 Abnormal weight gain; R60.9 Edema, unspecified; R60.0 Localized edema; R14.0 Abdominal distension (gaseous)
CPT/HCPCS: 99214; G2211

== ENCOUNTER → 2024-06-28 11:03 | Outpatient (BNVA) | payer OTHER, SELFPAY | PROVIDERS: PCP Internal Medicine; Visit Provider Nurse Practitioner Family | DX: K59.03 Drug induced constipation (principal); K21.9 Gastro-esophageal reflux disease without esophagitis; K58.2 Mixed irritable bowel syndrome; K62.5 Hemorrhage of anus and rectum; R74.01 Elevation of levels of liver transaminase levels; R79.89 Other specified abnormal findings of blood chemistry; R63.5 Abnormal weight gain; R60.9 Edema, unspecified; R60.0 Localized edema; R14.0 Abdominal distension (gaseous) | CPT/HCPCS: 99212 ==

== ENCOUNTER 2024-09-20 10:15 | Outpatient (AMB) | payer OTHER, SELFPAY ==
[2024-09-20 10:28] VITALS: BP 100/80; BMI 41.0
--- NOTE | 2024-09-20 10:28 | MHC.OFFVIS ---
Vital Signs 09/20/24 10:28 Height 5 ft 6 in Weight 254 lb BMI 41.0 BP 100/80 Blood Pressure Location Rt brachial Position Sitting Comment Unable to obtain O2 and pulse due to nails Intake Visit Reasons: 6 mnts Loading Inspector Required: No Accompanied by: Self / Same As Patient Allergies bee venom protein (honey bee) Allergy (Severe, Verified 09/20/24 10:40) Anaphylaxis Penicillins Allergy (Severe, Verified 09/20/24 10:40) Unknown Medication List - Last Reconciled 09/20/24 by TAYE Ashton albuterol sulfate 90 mcg/actuation (Ventolin HFA) 1 inh inhalation QID PRN alprazolam 2 mg PO BEDTIME PRN amitriptyline 75 mg (3 x 25 mg) PO BEDTIME 30 days apixaban (Eliquis) 5 mg PO BID atorvastatin 20 mg PO DAILY back brace Lumbar back support. Use when sitting baclofen 20 mg (2 x 10 mg) PO BEDTIME 30 days bisacodyl (Dulcolax (bisacodyl)) 10 mg (2 x 5 mg) PO BEDTIME blood pressure monitor As directed cane As directed cane Single point cane. Use when walking [Cane tips As directed] carbidopa-levodopa 25-100 mg 1 tab PO TID 30 days cetirizine 10 mg PO DAILY PRN dapagliflozin propanediol 10 mg PO DAILY docusate sodium 200 mg (2 x 100 mg) PO BEDTIME [Door alarm apply to bedroom and exit door at night] epinephrine 0.3 mg IM Q4H PRN esomeprazole magnesium (Nexium) 40 mg PO DAILY etodolac 500 mg PO BID PRN [Laser alarm Laser alarm applied to head of bed, turn on nightly; ] linaclotide (Linzess) 290 mcg PO QAM lisinopril 10 mg PO DAILY 90 days magnesium citrate (Citrate of Magnesia oral) 150 mL PO DAILY PRN metoprolol succinate ER 50 mg PO DAILY multivitamin with folic acid 400 mcg (Daily-Trinity (with folic acid)) 1 tab PO DAILY pregabalin 150 mg PO BID 30 days simethicone (Anti-Gas Ultra Strength) 180 mg PO BID PRN trazodone 100 mg PO BEDTIME vitamin B complex (Vitamins B Complex capsule) 1 cap PO DAILY 90 days walker (Ultra-Light Rollator misc) Seated 4 wheeled walker with basket HPI Comments Details: 63-yr-old female presents for f/u CRPS, tremor and migraine. Interval medical history is notable for early 2024, [facility] hospitalization, for which the patient presented with exertional dyspnea and tachycardia, and was found to have a flutter with RVR, patient was treated with IV diltiazem followed by EP cardioversion on 06/07, which was deemed successful. Patient was also treated for possible pericarditis due to report of sharp chest pain, elevated ESR/CRP, and TTE showing trace pericardial effusion. At that time, the patient was discharged on high-dose aspirin times 14 days, colchicine 0.6 mg daily x3 months, as well as home lisinopril, metoprolol, and apixaban, and to start dapagliflozin 5mg daily. Last [facility] PT Cardiology. Indicated patient may require a pacemaker placement-patient is unaware of this. She is followed closely by [facility] Cardiology and [facility] EP Cardiology. Today, the patient's primary concern is that she feels that her recent medication changes are causing her multiple side effects. Such as increased daytime sleepiness and weight gain, for which she does not believe there is another explanation. She states that the weight gain is making her mobility worse, interfering with her ability to bend down or even put on her shoes. So she would like to have weight loss surgery. She also reports that she is falling asleep during the day, and she missed a recent appointment, because she just fell asleep. She does endorse snoring. She had a normal sleep study in 2021; however patient has gained more than 50 lb since that previous sleep study. She is concerned about dry and scaly feet. She has not tried any OTC creams or treatments for this. Today, the patient also repeatedly refers back to the hospitalization in February of this year, where she continues to have poor recall of the entire hospitalization. Pt reports her tremor is worse, dropping things more. Having RUE pain and right-sided abdominal pain. She states her therapist, Brady Cardeans, has advised her to talk to her HCP to optimize her depression medication, as her therapist feels it is not working. Patient reports that her divorce has finally been finalized; however, there are many issues related to the divorce in separation property that remain to be addressed. Patient is not currently seeing a psychiatrist. She states she has not seen her PCP recently; the review of the [facility] portal shows the last PCP appointment on 06/21/2024. 03/28/2024, previous HPI: Patient had a Feb 11-2024 [facility] admission for a-flutter eval, and was d/x'd w/ new a-flutter, and is now being followed by [facility] Cardiology. Her verapamil, which we were prescribing for migraine management, was changed to diltiazem. And patient was also started on Eliquis and metoprolol. She is to be scheduled for nuclear stress test. She continues to be followed closely by GI for abdominal bloating, elevated LFTs, and more recently rectal bleeding. GI recently advised her to stop Motegrity and start Linzess- though today it does not seem that patient has started Linzess. Patient states she was scheduled for colonoscopy, however this was put on hold due to new a flutter diagnosis. She recently had initial pain management consult, who raised possibility of spinal stimulator, however wanted to to see an updated C-spine MRI prior to make a formal decision. Patient was not thought to be a candidate for oral opioid therapy, due to reports of drinking 1-2 glasses of wine per night, and recently being started on Eliquis. Patient states she has not been doing well since she had a hospitalization in November for pneumonia. She further states that she does not remember any thing from her February [facility] admission, the was told that time she was swearing and argumentative- which is not like her. States she thought she possibly could have had an allergic reaction to the diltiazem drip, and this is why she did not remember anything- I did inform her that the diltiazem drip to his converted to oral diltiazem which she is currently taking. She does note that she had had conversations with her daughter during the hospitalization, though did not recall them. She did have follow-up head CT which was unremarkable, and head/neck CTA showing right cervical ICA mild-moderate calcific atherosclerosis of the carotid bulb and proximal ICA stenosis- < 50%; Left cervical ICA mild calcific atherosclerosis carotid bulb and proximal ICA without flow-limiting stenosis; left cervical vertebral artery with probable moderate stenosis; also mentioned of enlarged thyroid with poorly defined nodules and right lobe calcifications. She states she was shaking/jerking, this can make it hard for her to use her phone. She continues to need assist with ADLs, has a home health aide. She continues to have significant pain, decreased mobility. She is using a cane to walk. States previous trials of Pt were not helpful. She has gain proximally 30 lb in the past year. She is taking the carbidopa levodopa 25-100 mg 1 tab b.i.d. To his compliant with amitriptyline 75 mg q.h.s.. 07/18/2023 HPI via televideo visit: Pt states she is getting worse overall. Pt reports she had [facility] ER eval in late April for stroke and MS. Per [facility] notes, pt had presented w/ left facial/sided weakness which self-resolved. Her work-up, brain MRI, CT/CTa, was non-acute- and was advised to undergo out-pt echocardiogram and holter- which she has not done yet. 05/02/23, Brain MRI w/o: 1. No acute/subacute infarct, mass, hemorrhage, or other acute intracranial abnormality. 2. Mild T2/FLAIR hyperintense foci in the white matter, nonspecific but most likely reflecting chronic small vessel disease. Lipid panel in April 2023- was WNL. States she is compliant w/ her statin. Her BP is at goal of < 130/80. She also notes she has been having increasing difficulty keeping her upper body upright. Her knee pops out of socket. She states her stomach is even larger. She states it makes it difficult to complete her ADLs and toilet hygiene. It also makes it difficult to bend over. She is f/b [facility] GI- had recent abd US and thought she was to have a colonoscopy- but has not heard. I have reached out to [facility] GI on this question. She needs a podiatry referal- will defer to PCP or [facility]. Pt also notes a lower body rash. 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 Right upper extremity rest and postural tremor Generalized slowness of movements. Slow to stand, short steps, antalgic gait w/ cane. Bilateral feet, heels dry and flaky without erythema, drainage. Psych Mental Status: mental status grossly normal Attitude: cooperative Thought process: Circumstantial thought process present Results Reviewed Results Reviewed: 03/04/2024, CT/CT head for STROKE IMPRESSION: No acute intracranial abnormality. 03/04/2024, CT/CT angio head neck STROKE her name that you go check them in with the other phone IMPRESSION: 1. Mild to moderate atheromatous plaque of the right carotid bulb with a less than 50% luminal stenosis. 2. Minimal plaque left carotid bulb with no significant luminal stenosis. 3. Motion artifact limits evaluation of the left vertebral artery origin, which is likely moderately stenotic. Both vertebral arteries are otherwise normal in course and caliber. 4. No major intracranial arterial occlusion, significant stenosis, aneurysm, or dissection. Assessment & Plan Assessment & Plan (1) Complex regional pain syndrome type II: Comment: s/p injury at work on 12/01/15. Progressed to include BUE & BLE. Code(s): G56.40 - Causalgia of unspecified upper limb Category: Medical Qualifiers: Complex regional pain syndrome affected site: upper extremity Laterality: right Qualified Code(s): G56.41 - Causalgia of right upper limb (2) Rash: Code(s): R21 - Rash and other nonspecific skin eruption Category: Medical (3) Gait difficulty: Code(s): R26.9 - Unspecified abnormalities of gait and mobility Category: Medical (4) TIA (transient ischemic attack): Code(s): G45.9 - Transient cerebral ischemic attack, unspecified Category: Medical (5) Spondylosis of cervical region without myelopathy or radiculopathy: Code(s): M47.812 - Spondylosis without myelopathy or radiculopathy, cervical region Category: Medical (6) Spondylolisthesis, cervical region: Code(s): M43.12 - Spondylolisthesis, cervical region Category: Medical (7) Complex regional pain syndrome type 2 of both upper extremities: Code(s): G56.43 - Causalgia of bilateral upper limbs Category: Medical (8) Sleep disorder, unspecified: Comment: REM sleep behavior, fatigue, snoring, excessive daytime sleepiness, ESS 12. Code(s): G47.9 - Sleep disorder, unspecified Category: Medical (9) Snoring: Code(s): R06.83 - Snoring Category: Medical (10) Excessive daytime sleepiness: Code(s): G47.19 - Other hypersomnia Category: Medical Plan For h/o TIA, a-flutter dx, weight gain: Recheck amitriptyline level. Continue Eliquis, metoprolol, lisinopril per cardiology. We will initiate a referral for weight management consult. Follow-up with [facility] Cardiology and [facility] EP sap bi developer scheduled. For sleep disorder with parasomnias- Patient advised to undergo follow-up in-lab PSG with ET CO2, in setting of worsening excessive daytime sleepiness, marked weight gain, cardiac arrhythmia, Continue safety measures. Can continue Xanax per out-side provider- we will defer to PCP for refills. ? For migraine- Continue Amitriptyline 75 mg qhs. Previous trials: Verapamil SR 120mg qhs- discontinued per cardiology. etodolac prn- discontinued due to current Eliquis use. Future considerations- CGRP MAB (Emgality or Ajovy d/t no constipation ADR risk). ? For CRPS/tremor, back pain, and gait difficulty- We will order C-spine MRI to further evaluate known spondylolisthesis. Continue Sinemet 25-100mg 3 times per day- for tremor, tone, and bradykinesia. Continue Amitriptyline 75mg qhs- consider adjusting as above. Continue Pregabalin 150mg tid. Continue to hold Tramadol 50mg prn. Walk w/ cane. Follow-up with pain management as scheduled. Patient is not interested in being referred back to PT at this time. 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 Continue DATA ENGINEER services. Previous trials- Gabapentin- lost effectiveness. Tramadol- helpful, given for short courses only. For general concerns: Pt advised to apply eucerin, aquaphor, or vaseline to feet 1-2 x's per day. Will provide short course of lac-hydrin cream as well. For mood: Message left for pt's therapist to discuss concerns. Hien Cardenas [facility], at [phone], through [facility] ? Will follow-up upon review of above and patient to follow-up in clinic in 6 months or sooner prn. Orders: Orders RT PSG in-lab sleep study Today G47.19 - Other hypersomnia, G47.9 - Sleep disorder, unspecified, I42.9 - Cardiomyopathy, unspecified, I48.92 - Unspecified atrial flutter, R06.83 - Snoring, Z68.41 - Body mass index [BMI] 40.0-44.9, adult Referrals Medical Weight Management Referral Z68.41 - Body mass index [BMI] 40.0-44.9, adult Medications: New ammonium lactate 12% apply to bilateral feet 1 appl topical BID 385 grams 1RF 30 days Coding Level of Care Code Est Pt Level 4 (98346) Diagnoses Complex regional pain syndrome type 2 of right upper extremity G56.41 Complex regional pain syndrome affected site: upper extremity Laterality: right Rash R21 Gait difficulty R26.9 TIA (transient ischemic attack) G45.9 Spondylosis of cervical region without myelopathy or radiculopathy M47.812 Spondylolisthesis, cervical region M43.12 Complex regional pain syndrome type 2 of both upper extremities G56.43 Sleep disorder, unspecified G47.9 Snoring R06.83 Excessive daytime sleepiness G47.19
== END 2024-09-20 11:23 | disposition home or self-care (01) ==
LOC: HO.HSMS 10:15
PROVIDERS: PCP Internal Medicine; Visit Provider Nurse Practitioner Family
DX: G56.41 Causalgia of right upper limb (principal); R21 Rash and other nonspecific skin eruption; R26.9 Unspecified abnormalities of gait and mobility; G45.9 Transient cerebral ischemic attack, unspecified; M47.812 Spondylosis without myelopathy or radiculopathy, cervical region; M43.12 Spondylolisthesis, cervical region; G56.43 Causalgia of bilateral upper limbs; G47.9 Sleep disorder, unspecified; R06.83 Snoring; G47.19 Other hypersomnia
CPT/HCPCS: 99214

== ENCOUNTER → 2024-09-20 10:15 | Outpatient (BNVA) | payer OTHER, SELFPAY | PROVIDERS: PCP Internal Medicine; Visit Provider Nurse Practitioner Family | DX: G56.41 Causalgia of right upper limb (principal); R21 Rash and other nonspecific skin eruption; R26.9 Unspecified abnormalities of gait and mobility; G45.9 Transient cerebral ischemic attack, unspecified; M47.812 Spondylosis without myelopathy or radiculopathy, cervical region; M43.12 Spondylolisthesis, cervical region; G56.43 Causalgia of bilateral upper limbs; R40.0 Somnolence; G47.9 Sleep disorder, unspecified; R06.83 Snoring; G47.19 Other hypersomnia | CPT/HCPCS: 99212 ==

== ENCOUNTER → 2024-11-03 20:30 | Outpatient (REF) | payer OTHER, SELFPAY | LOC: HO.SL 20:30 | PROVIDERS: PCP Internal Medicine; Visit Provider Nurse Practitioner Family | DX: G47.19 Other hypersomnia (principal); R06.83 Snoring; I48.92 Unspecified atrial flutter; I42.9 Cardiomyopathy, unspecified; Z68.41 Body mass index [BMI] 40.0-44.9, adult | CPT/HCPCS: 95810 ==

== ENCOUNTER → 2024-11-03 22:17 | Outpatient (BNV) | payer OTHER, SELFPAY | PROVIDERS: PCP Internal Medicine; Visit Provider Internal Medicine | DX: G47.33 Obstructive sleep apnea (adult) (pediatric) (principal) | CPT/HCPCS: 95810 ==